=== PATIENT | male | born 1950 | race Caucasian/White ===

== ENCOUNTER → 2018-07-09 | Outpatient (CLI) | payer MEDICARE ==
[2018-07-09 16:14] LABS: Albumin 4.6 g/dL (3.80-4.90); Albumin/Globulin Ratio 2.88 (1.60-3.17); Anion Gap 10.2 mmol/L (4.00-12.00); Calcium 9.5 mg/dL (8.7-10.3); Carbon Dioxide 24.8 mmol/L (21.6-31.8); Globulin 1.6 g/dL (1.6-3.3); LDL Cholesterol,Calculated 74.4 mg/dL (0.0-131.0); Potassium 4.8 mmol/L (3.5-5.5); Total Bilirubin 0.7 mg/dL (0.2-1.2); Total Protein 6.2 g/dL (6.2-8.2); VLDL Calculation 15.6 mg/dL (5.00-40.00)
[2018-07-09 17:29] LABS: Hemoglobin A1C 6.7 % (4.0-6.0)
== END | disposition home or self-care (01) ==
LOC: LABWHC1 08:33
PROVIDERS: ATTEND Internal Medicine Interventional Cardiology
DX: E78.2 Mixed hyperlipidemia (principal); I48.0 Paroxysmal atrial fibrillation; E11.65 Type 2 diabetes mellitus with hyperglycemia
CPT/HCPCS: 36415; 80053; 80061; 82043; 82570; 83036; 84443

== ENCOUNTER → 2021-06-17 | Outpatient (CLI) | payer MEDICARE ==
[2021-06-17 14:28] LABS: ALT 25 U/L (10-49); AST 25 U/L (14-35); African American GFR (CKD) 77.3 (60.0-200.0); Albumin 4.6 g/dL (3.8-4.9); Albumin/Globulin Ratio 1.59 (1.60-3.17); Alkaline Phosphatase 64 U/L (41-126); BUN/Creat Ratio 19.18 Ratio (12.00-20.00); Blood Urea Nitrogen 21.1 mg/dL (9.0-27.0); Chloride 101 mmol/L (96-109); Chol/HDL Ratio 4.36 Ratio; Globulin 2.9 g/dL (1.6-3.3); Glucose 115 mg/dL (70-110); LDL Cholesterol,Calculated 82.3 mg/dL (0.0-131.0); Non-African American GFR(CKD) 66.7 (60.0-200.0); Potassium 4.2 mmol/L (3.5-5.5); Sodium 135 mmol/L (135-145); Total Protein 7.5 g/dL (6.2-8.2); VLDL Calculation 19.44 mg/dL (5.00-40.00)
[2021-06-17 21:15] LABS: Microalbumin Creatinine Ratio <30 mg/g Creat (0-30); Urine Creatinine 82.8 mg/dL (39.0-259.0)
== END | disposition home or self-care (01) ==
LOC: LABWHC1 08:21
PROVIDERS: ATTEND Internal Medicine Endocrinology, Diabetes & Metabolism
DX: E11.65 Type 2 diabetes mellitus with hyperglycemia (principal)
CPT/HCPCS: 36415; 80053; 80061; 82043; 82570; 83036; 84443

== ENCOUNTER → 2022-03-01 | Outpatient (CLI) | payer MEDICARE ==
[2022-03-01 15:58] LABS: ALT 19 U/L (10-49); AST 18 U/L (14-35); African American GFR (CKD) 88.6 (60.0-200.0); Albumin 4.5 g/dL (3.8-4.9); Albumin/Globulin Ratio 1.62 (1.60-3.17); Alkaline Phosphatase 68 U/L (41-126); BUN/Creat Ratio 22.48 Ratio (12.00-20.00); Blood Urea Nitrogen 22.1 mg/dL (9.0-27.0); Calcium 9.3 mg/dL (8.7-10.3); Carbon Dioxide 25.3 mmol/L (20.0-27.5); Chloride 102 mmol/L (96-109); Chol/HDL Ratio 6.84 Ratio; Globulin 2.7 g/dL (1.6-3.3); Glucose 142 mg/dL (70-110); LDL Cholesterol,Calculated 171.6 mg/dL (0.0-131.0); Non-African American GFR(CKD) 76.4 (60.0-200.0); Potassium 4.4 mmol/L (3.5-5.5); Sodium 139 mmol/L (135-145); Total Protein 7.2 g/dL (6.2-8.2)
== END | disposition home or self-care (01) ==
LOC: LABWHC1 08:00
PROVIDERS: ATTEND Internal Medicine Endocrinology, Diabetes & Metabolism
DX: E11.65 Type 2 diabetes mellitus with hyperglycemia (principal)
CPT/HCPCS: 36415; 80053; 80061; 82043; 82570; 83036; 84443

== ENCOUNTER → 2022-08-14 | Outpatient (CLI) | payer MEDICARE ==
[2022-08-14 12:40] VITALS: BP 137/69; PULSE 52; RESP 18; TEMP 97.8
--- NOTE | 2022-08-14 13:30 | P.PAINPG ---
PQRS Measure Charge Sheet Comment: HISTORY OF PRESENT ILLNESS: 72 yr old male as a referral from [facility] presents today w severe and chronic LBP secondary to spinal stenosis, DDD, spondylosis and facet arthropathy without myelopathy for evaluation. Pt states pain level is provoked at 9/10 in intensity, constant, localized in the lower lumbar spine where it meets the tailbone, sore in character w shooting pain towards the BLEs. Pain is provoked by lifting, bending. Pain is alleviated by heat, hot showers, PT 4 weeks in Jun 2022, chiropractic treatments 10 weeks in Mar 2022, daily home stretching regimen, repositioning and rest. PMH: OA, HTN, Hyperlipidemia, GERD, DM II PSH: Denies SH: Negative x 3 FH: Non contributory All: NKDA Meds: See list REVIEW OF ORGAN SYSTEMS: CONSTITUTIONAL: No fevers or chills. No recent weight loss. NEUROLOGICAL: + numbness and tingling along the distal extremities. No seizure disorders or headaches. MUSCULOSKELETAL: + pain PSYCHIATRIC: Denies current depression or suicidal thoughts. Physical Examinations : Constitutional : Cooperative , not in acute distress . Neurologic : Cranial nerve II to XII intact. No focal neurological deficits. Psychiatric : alert & oriented x 3. Matching mood & appropriate affect. Judgment & insight intact. Musculoskeletal : Cervical Spine Motor strength in the deltoid and b iceps: Normal right side. Normal Left side Motor strength biceps and the wrist extensors: Normal right side . Normal left side Motor strength in the triceps muscle: Normal right side. Normal left side Deep tendon reflexes: Normal at the biceps. Normal at Brachioradialis. Normal at triceps Vertebral body tenderness to deep palpation over Cervical facet loading test: positive bilaterally Spurling test: positive bilaterally Neck distraction test: positive bilaterally Taiwo sign: positive bilaterally Lumbar spine Motor strength lower extremities ,thigh and legs 5/5 Right side , 5/5 Left side Deep tendon reflexes : Normal Knee Jerk. Normal Ankle Jerk Vertebral body tenderness over L5 + Villalpando Test positive on L5 Lumbar facet Loading Test: positive Right / positive Left Range of motion of the lumbar spine Flexion 30 degrees, extension 10 degrees Straight Leg Raise test: Left/ Right positive at degree Evie test: positive right / positive left. Severe tenderness over the Sacroiliac joint on the Right / Left sides Gaenslen test: positive bilaterally Seated flexion test: positive bila terally. Sacral spine : Severe tenderness over the Sacroiliac joint: right side / left side Range of motion: Flexion of the lumbar spine <60 degrees Range of motion: Extension of the lumbar spine <20 degrees Gaenslen's Test positive Kahlil's Test positive Evie test: positive right side / left side Thigh Thrust Test Sacral Thrust Test Imaging: MRI noncontrast of the lumbar spine from 06/19/22 reviewed Assessment/ Plan : Lumbar stenosis, lumbar spondylosis Recommendation of L5-S1 #1. May need a series of injections for optimal pain relief. Risks, benefits of procedure discussed and patient verbalized understanding. Admits to aspirin or anti- coagulant use or medical history of diabetes. Protocol for discontinuation/ continuation of medications archana procedure discussed. Minimal anesthesia provided, if clinically indicated, consisting of Versed and Fentanyl. All questions answered. I have spent greater than 30 minutes on patient care today. Dr Warner was available by phone for the evaluation of this patient. The time was used to review the medical records including relevant urine studies and Prescription history (MAPs), review of the available imaging, evaluation and examination of the patient, coordination of care with the medical staff and if applicable referring physicians, as well as creation of the medical record PQRS Narrative: Smoking Status Former smoker Home Medications: Ambulatory Orders Aspirin EC [Ecotrin Low Dose] 81 mg PO DAILY 12/07/13 Atorvastatin [Lipitor] 80 mg PO DAILY 12/07/13 Fenofibrate [Lofibra] 145 mg PO DAILY 12/07/13 Isosorbide Mononitrate [Imdur] 120 mg PO BID 12/07/13 Metoprolol Tartrate [Lopressor] 50 mg PO BID 12/07/13 Omeprazole [PriLOSEC] 40 mg PO BID 12/07/13 Amiodarone [Cordarone] 200 mg PO BID #180 tab 12/08/13 Enalapril Maleate 5 mg PO DIRECTED 01/27/14 Nitroglycerin 0.4 mg SL DIRECTED PRN 01/27/14 Rivaroxaban [Xarelto] 20 mg PO DAILY 01/27/14 metFORMIN HCL [Metformin HCl ER] 750 mg PO BID 01/27/14 Controlled Substance Measures - Controlled Substance Measures Is patient prescribed a controlled substance at discharge?: No
== END ==
LOC: PNWHC3 09:21
PROVIDERS: ATTEND Specialist
DX: M51.36 Other intervertebral disc degeneration, lumbar region (principal); M48.061 Spinal stenosis, lumbar region without neurogenic claudication; Z87.891 Personal history of nicotine dependence; Z79.899 Other long term (current) drug therapy; M19.90 Unspecified osteoarthritis, unspecified site; I10 Essential (primary) hypertension; M47.816 Spondylosis without myelopathy or radiculopathy, lumbar region; E78.5 Hyperlipidemia, unspecified; K21.9 Gastro-esophageal reflux disease without esophagitis; E11.9 Type 2 diabetes mellitus without complications; Z79.84 Long term (current) use of oral hypoglycemic drugs; Z79.82 Long term (current) use of aspirin
CPT/HCPCS: 99211

== ENCOUNTER 2022-09-21 10:41 | Day surgery (SDC) | payer MEDICARE ==
[2022-09-13 10:27] VITALS: BMI 24.4
[~2022-09-21 10:41] MED LIST: LACTATED RINGERS 1,000 ML IV SCH
[2022-09-21 11:03] VITALS: RESP 16; TEMP 97.5
[2022-09-21 11:07] LABS: Glucose,Whole Blood 99 mg/dL (70-110)
[2022-09-21] MEDS ORDERED: IOPAMIDOL M200 10 ML VIAL ONE (11:26)
[2022-09-21] MEDS ORDERED: methylPREDNISolone ACETATE 40 MG/ML 1 ML VIAL ONE (11:26)
--- NOTE | 2022-09-21 11:34 | P.PCN ---
Date of Procedure: 09/21/22 Procedure(s) Performed: PREOPERATIVE DIAGNOSIS: 1- Lumbar Degenerative Disc Diseases 2-Lumbar spondylosis with Facet arthropathy without myelopathy. 3-lumbar spinal stenosis POSTOPERATIVE DIAGNOSIS: 1-lumbar degenerative disc disease. 2-lumbar spondylosis with facet arthropathy without myelopathy. 3-lumbar spinal stenosis. PROCEDURE 1. Lumbar epidural steroid injection under fluoroscopic guidance at the L5-S1 level. (Fluoroscopy imaging was available in radiology department) 2. Lumbar epidurogram. ANESTHESIA: Lidocaine 1% 3 and then only. EBL: Minimal PROCEDURE INDICATION: The patient with low back pain and radiculitis symptoms unresponsive to conservative treatment. Fluoroscopy was used to optimize visualization of the needle placement and to maximize safety. PROCEDURE DESCRIPTION / TECHNIQUE: The patient was seen and identified in the preoperative area. Risks, benefits, complications including but not limited to infections ,bleeding ,allergic reaction to the medications ,nerve damage and not complete pain releife , and alternatives were discussed with the patient. The patient agreed to proceed with the procedure and signed the consent. IV was started, and vital signs were stable. Patient was taken to the OR and time out was completed. The patient was placed in the prone position on procedure table and a pillow was placed under the abdomen to reduce lumbar lordosis. The lumbosacral area was prepped and draped in the usual sterile fashion.ere closely monitored during the procedure. Vital signs was monitered during the entire procedure. Using anterior-posterior fluoroscopy, the L5-S1 interlaminar space was identified and the skin over this site was marked and then infiltrated with 1% lidocaine subcutaneously. Subsequently, a 20-gauge Tuohy epidural needle was inserted and advanced toward the epidural space using the ``Loss of resistance technique and guided by AP and lateral fluoroscopy. The correct needle position in the epidural space was verified with the injection of 2 mL of the water soluble contrast dye Isovue 200 contrast and observing an excellent epidurogram with the epidural spread of the dye, after negative aspiration for blood and CSF and in the absence of paresthesias. Again after negative aspiration, a 6 ml mixture containing 40 mg of Depo-medrol ( Preservetive Free ), and 2 ml of preservative free Normal Saline, and 2 ml of preservative free lidocaine 1% solution was injected and a washout of epidurogram was seen. Needle was withdrawn intact, skin was cleansed, and bandages were applied. COMPLICATIONS: None DISPOSITION / PLANS: The patient was placed in a supine position and transferred to the recovery area in a stable condition for observation. There was no evidence of lower extremity motor or sensory deficit after the procedure. Patient was discharged from the recovery room after meeting discharge criteria. Home discharge instructions were given to the patient by the staff. The patient was reexamined prior to discharge. The patient will schedule a follow up in the clinic in 2-4 weeks. xeralto held for more than 72 hours
[2022-09-21 11:59] VITALS: BP 135/70; PULSE 57
--- NOTE | 2022-09-22 09:36 | FL ---
Intraoperative/procedural fluoroscopic services were provided for lumbar epidural steroid injection. Total fluoroscopy time is 7.2 seconds with a total of 1 submitted image to PACS. Total DAP [id number] mG ym2. Please see the operative note for further details.
== END 2022-09-21 12:12 | disposition home or self-care (01) ==
LOC: ORPAIN 10:41
PROVIDERS: ATTEND Specialist
DX: M51.16 Intervertebral disc disorders with radiculopathy, lumbar region (principal); M47.26 Other spondylosis with radiculopathy, lumbar region; M48.061 Spinal stenosis, lumbar region without neurogenic claudication; I25.10 Atherosclerotic heart disease of native coronary artery without angina pectoris; I48.91 Unspecified atrial fibrillation; Z79.01 Long term (current) use of anticoagulants; Z79.82 Long term (current) use of aspirin; Z88.8 Allergy status to other drugs, medicaments and biological substances
CPT/HCPCS: 62323; J1030; Q9966

== ENCOUNTER → 2022-10-18 | Outpatient (CLI) | payer MEDICARE ==
[2022-10-18 10:09] VITALS: BP 101/65; PULSE 66; RESP 15; TEMP 97.9
--- NOTE | 2022-10-18 13:39 | P.PAINPG ---
PQRS Measure Charge Sheet Comment: 72 yr old male presents today w severe and chronic LBP secondary to spinal stenosis, DDD, spondylosis and facet arthropathy without myelopathy for evaluation s/p JUDSON L5-S1. Pt states he experienced 50% pain relief x 4 days s/p procedure. Pt states pain level is provoked at 8/10 in intensity, constant, localized in the lower lumbar spine where it meets the tailbone, tight, sharp in character w shooting pain towards the buttocks and BLEs. Pain is provoked by lifting, bending or walking/ standing for excessive periods. Pain is alleviated by medications, heat, hot showers, PT 4 weeks in Jun 2022, chiropractic treatments 10 weeks in Mar 2022, daily home stretching regimen, repositioning and rest. Oswestry axial pain score of 15. Interventional procedures include JUDSON L5-S1 x1 Medications include [place], Tyl, Robaxin REVIEW OF ORGAN SYSTEMS: CONSTITUTIONAL: No fevers or chills. No recent weight loss. NEUROLOGICAL: + numbness and tingling along the distal extremities. No seizure disorders or headaches. MUSCULOSKELETAL: + pain PSYCHIATRIC: Denies current depression or suicidal thoughts. Physical Examinations : Constitutional : Cooperative , not in acute distress . Neurologic : Cranial nerve II to XII intact. No focal ne urological deficits. Psychiatric : alert & oriented x 3. Matching mood & appropriate affect. Judgment & insight intact. Musculoskeletal : Cervical Spine Motor strength in the deltoid and biceps: Normal right side. Normal Left side Motor strength biceps and the wrist extensors: Normal right side . Normal left side Motor strength in the triceps muscle: Normal right side. Normal left side Deep tendon reflexes: Normal at the biceps. Normal at Brachioradialis. Normal at triceps Vertebral body tenderness to deep pa lpation over Cervical facet loading test: positive bilaterally Spurling test: positive bilaterally Neck distraction test: positive bilaterally Taiwo sign: positive bilaterally Lumbar spine Motor strength lower extremities ,thigh and legs 5/5 Right side , 5/5 Left side Deep tendon reflexes : Normal Knee Jerk. Normal Ankle Jerk Vertebral body tenderness + Villalpando Test positive Lumbar facet Loading Test: positive Right / positive Left over BL L4-L5 L5-S1 Range of motion of the lumbar spine Flexion 30 degrees, extension 10 degrees Straight Leg Raise test: Left/ Right positive at degree Evie test: positive right / positive left. Severe tenderness over the Sacroiliac joint on the Right / Left sides Julio test: positive bilaterally Seated flexion test: positive bilaterally. Sacral spine : Severe tenderness over the Sacroiliac joint: right side / left side Range of motion: Flexion of the lumbar spine <60 degrees Range of motion: Extension of the lumbar spine <20 degrees Gaenslen's Test positive Kahlil's Test positive Evie test: positive right side / left side Thigh Thrust Test Sacral Thrust Test Assessment/ Plan : Lumbar stenosis, lumbar spondylosis Recommendation of BL MBB L4-L5, L5-S1 #1. May need a series of injections, up until RFA, for optimal pain relief. Risks, benefits of procedure discussed and patient verbalized understanding. Admits to aspirin or anti- coagulant use or medical history of diabetes. Protocol for discontinuation/ continuation of medications archana procedure discussed. Minimal anesthesia provided, if clinically indicated, consisting of Versed and Fentanyl. All questions answered. I have spent greater than 30 minutes on patient care today. Dr Warner was available by phone for the evaluation of this patient. The time was used to review the medical records including relevant urine studies and Prescription history (MAPs), review of the available imaging, evaluation and examination of the patient, coordination of care with the medical staff and if applicable referring physicians, as well as creation of the medical record PQRS Narrative: Smoking Status Former smoker Hx Alcohol Use (MH) Yes: RARE Home Medications: Ambulatory Orders Aspirin EC [Ecotrin Low Dose] 81 mg PO DAILY 12/07/13 Isosorbide Mononitrate [Imdur] 120 mg PO BID 12/07/13 Metoprolol Tartrate [Lopressor] 50 mg PO DAILY 12/07/13 Nitroglycerin 0.4 mg SL DIRECTED PRN 01/27/14 Rivaroxaban [Xarelto] 20 mg PO HS 01/27/14 metFORMIN HCL [Metformin HCl ER] 750 mg PO BID 01/27/14 Amiodarone [Cordarone] 200 mg PO QAM 09/13/22 Atorvastatin [Lipitor] 40 mg PO DAILY 09/13/22 Empagliflozin [Jardiance] 25 mg PO DAILY 09/13/22 Losartan [Cozaar] 50 mg PO DAILY 09/13/22 Semaglutide [Ozempic] 0.5 mg SQ SPEAR 09/13/22 Controlled Substance Measures - Controlled Substance Measures Is patient prescribed a controlled substance at discharge?: No
== END ==
LOC: PNWHC3 09:36
PROVIDERS: ATTEND Specialist
DX: M47.817 Spondylosis without myelopathy or radiculopathy, lumbosacral region (principal); M48.061 Spinal stenosis, lumbar region without neurogenic claudication; Z87.891 Personal history of nicotine dependence; Z79.82 Long term (current) use of aspirin; Z88.1 Allergy status to other antibiotic agents
CPT/HCPCS: 99211

== ENCOUNTER → 2022-11-21 | Day surgery (SDC) | payer MEDICARE ==
[2022-11-16 11:18] VITALS: BMI 24.4
[~2022-11-21] MED LIST changes: +LACTATED RINGERS 1,000 ML IV ONE; +MIDAZOLAM 2 MG/2 ML VIAL ONE; +ROPIVACAINE 5MG/ML 20ML VIAL ONE; +fentaNYL (PF) 50 MCG/ML 2 ML AMP ONE; +methylPREDNISolone ACETATE 40 MG/ML 1 ML VIAL ONE
[2022-11-21 07:25] VITALS: TEMP 97.1
[2022-11-21 07:35] LABS: Glucose,Whole Blood 116 mg/dL (70-110)
--- NOTE | 2022-11-21 07:56 | P.PCN ---
Date of Procedure: 11/21/22 Procedure(s) Performed: PREOPERATIVE DIAGNOSIS : 1- Lumbar spondylosis with Facet Arthropathy without myelopathy . 2- Lumber degenerative disc disease POSTOPERATIVE DIAGNOSIS: 1- Lumbar spondylosis with Facet Arthropathy without myelopathy . 2- Lumber degenerative disc disease PROCEDURE: Diagnostic bilateral L3 , L4 , and L5 medial branch block under fluoroscopy guidance(fluoroscopy images available in the radiology Department ) ( To target the facet joint between Bilateral L4-5 , and L5-S1 )# 1st ANESTHESIA:, moderate sedation with intravenous Versed 1 mg and Fentanyl 50 mcg. (Sedation starts 07:40, ended at 07:51 ) EBL: Minimal COMPLICATION: None PROCEDURE INDICATION: Chronic low back pain secondary to Facet arthropathy unresponsive to conservative treatment. PROCEDURE DESCRIPTION: the patient was seen and identified in the preop holding area , risks and benefits and possible complications of the procedure and alternative were discussed with the patient, and the patient agreed to proceed with the procedure and signed the consent and vital signs monitored during the procedure and fluoroscopy was used to maximize the benefit and accuracy of the needle placement, and sedation was given to decrease patient anxiety, patient was taken to the procedure room and placed in prone position vital signs monitored in the back prepped with chlorhexidine X3 then under strict sterile technique using a right oblique fluoroscopy ,the junction of the transverse process and the superior articulating process of the right L3 , L4 , and L5 vertebra which corresponding to the fluoroscopy image of the eye of the Lalo dog on the block side for the medial branches and subsequently , after local infiltration of skin and subcu tissuies with Ropivacaine 0.5 % , one mL at each level ,then 22-gauge Quincke-type needles , 3 needle was used , each one of them placed at the junction of the base of the transverse process and the superior articular process at the appropriate level, and the needle was advanced until the periosteum contacted, needle placement confirmed with AP oblique and lateral view and after appropriate needle placement confirmed, and after negative aspiration for heme and CSF and there was no paresthesia 1-1/2 mL of Ropivacaine 0.5% mixed with 20 mg Depo-Medrol , then half mL injected at each level after negative aspiration the needle subsequently removed and the same p rocedure repeated for the left side at left side at L3 , L4 and L5 levels. At the end of the procedure and the needles removed and a bandage applied after the skin was cleaned the cleaning solution patient taken to recovery room in stable condition and monitors in the recovery room for 20-30 minutes and discharged home in stable condition after discharge criteria met and patient will follow up with the pain clinic in 2-4 weeks
[2022-11-21 08:17] VITALS: BP 137/66; PULSE 51; RESP 14
[2022-11-21 08:26] LABS: Glucose,Whole Blood 109 mg/dL (70-110)
--- NOTE | 2022-11-21 09:30 | FL ---
Intraoperative/procedural fluoroscopic services were provided. Total fluoroscopy time is 14.6 seconds with a total of 6 submitted images to PACS. Please see the operative/procedural note for further det ails. DAP: [id number] mGym2
== END ==
LOC: ORPAIN 06:46
PROVIDERS: ATTEND Specialist
DX: M51.36 Other intervertebral disc degeneration, lumbar region (principal); M47.816 Spondylosis without myelopathy or radiculopathy, lumbar region; G89.29 Other chronic pain; Z79.01 Long term (current) use of anticoagulants
CPT/HCPCS: 64493; 64494 ×2; J2250; J1030; J3010; J2795

== ENCOUNTER → 2022-12-14 | Outpatient (CLI) | payer MEDICARE ==
[2022-12-14 11:08] VITALS: BP 132/71; PULSE 89; RESP 16; TEMP 98
--- NOTE | 2022-12-14 12:33 | P.PAINPG ---
PQRS Measure Charge Sheet Comment: 72 yr old male presents today w severe and chronic LBP secondary to spinal stenosis, DDD, spondylosis and facet arthropathy without myelopathy for evaluation s/p BL MBB L3-L5 #1. Pt states he experienced 90 % pain relief x 6 hrs s/p procedure. Pt states pain level is provoked at 8/10 in intensity, constant, localized in the lower lumbar spine where it meets the tailbone, tight, sharp in character w shooting pain towards the buttocks and BLEs. Pain is provoked by lifting, bending or walking/ standing for excessive periods. Pain is alleviated by medications, heat, hot showers, PT 4 weeks in Jun 2022, chiropractic treatments 10 weeks in Mar 2022, daily home stretching regimen, repositioning and rest. Oswestry axial pain score of 15. Interventional procedures include JUDSON L5-S1 x1, BL MBB L3-L5 x1 Medications include [place], Tyl, Robaxin REVIEW OF ORGAN SYSTEMS: CONSTITUTIONAL: No fevers or chills. No recent weight loss. NEUROLOGICAL: + numbness and tingling along the distal extremities. No seizure disorders or headaches. MUSCULOSKELETAL: + pain PSYCHIATRIC: Denies current depression or suicidal thoughts. Physical Examinations : Constitutional : Cooperative , not in acute distress . Neurologic : Cranial nerve II to XII intact. No focal neurological deficits. Psychiatric : alert & oriented x 3. Matching mood & appropriate affect. Judgment & insight intact. Musculoskeletal : Cervical Spine Motor strength in the deltoid and biceps: Normal right side. Normal Left side Motor strength biceps and the wrist extensors: Normal right side . Normal left side Motor strength in the triceps muscle: Normal right side. Normal left side Deep tendon reflexes: Normal at the biceps. Normal at Brachioradialis. Normal at triceps Vertebral body tenderness to deep palpation over Cervical facet loading test: positive bilaterally Spurling test: positive bilaterally Neck distraction test: positive bilaterally Taiwo sign: positive bilaterally Lumbar spine Motor strength lower extremities ,thigh and legs 5/5 Right side , 5/5 Left side Deep tendon reflexes : Normal Knee Jerk. Normal Ankle Jerk Vertebral body tenderness + Villalpando Test positive Lumbar facet Loading Test: positive Right / positive Left over BL L4-L5 L5-S1 Range of motion of the lumbar spine Flexion 30 degrees, extension 10 degrees Straight Leg Raise test: Left/ Right positive at degree Evie test: positive right / positive left. Severe tenderness over the Sacroiliac joint on the Right / Left sides Gaenslen test: positive bilaterally Seated flexion test: positive bilaterally. Sacral spine : Severe tenderness over the Sacroiliac joint: right side / left side Range of motion: Flexion of the lumbar spine <60 degrees Range of motion: Extension of the lumbar spine <20 degrees Gaenslen's Test positive Kahlil's Test positive Evie test: positive right side / left side Thigh Thrust Test Sacral Thrust Test Assessment/ Plan : Lumbar stenosis, lumbar spondylosis Recommendation of BL MBB L3-L5 #2. May need a series of injections, up until RFA, for optimal pain relief. Risks, benefits of procedure discussed and patient verbalized understanding. Admits to aspirin or anti- coagulant use or medical history of diabetes. Protocol for discontinuation/ continuation of medications archana procedure discussed. Minimal anesthesia provided, if clinically indicated, consisting of Versed and Fentanyl. Narcotic/ Opiate agreement signed today 12/14/22. [place] 7.5/325mg #45 w 1 RF. Use, side effects, adverse reactions and safe storage discussed. All questions answered. I have spent greater than 30 minutes on patient care today. Dr Warner was available by phone for the evaluation of this patient. The time was used to review the medical records including relevant urine studies and Prescription history (MAPs), review of the available imaging, evaluation and examination of the patient, coordination of care with the medical staff and if applicable referring physicians, as well as creation of the medical record PQRS Narrative: Smoking Status Former smoker Hx Alcohol Use (MH) Yes: RARE Home Medications: Ambulatory Orders Aspirin EC [Ecotrin Low Dose] 81 mg PO DAILY 12/07/13 Isosorbide Mononitrate [Imdur] 120 mg PO BID 12/07/13 Metoprolol Tartrate [Lopressor] 50 mg PO DAILY 12/07/13 Nitroglycerin 0.4 mg SL DIRECTED PRN 01/27/14 Rivaroxaban [Xarelto] 20 mg PO HS 01/27/14 metFORMIN HCL [Metformin HCl ER] 750 mg PO BID 01/27/14 Amiodarone [Cordarone] 200 mg PO QAM 09/13/22 Atorvastatin [Lipitor] 40 mg PO DAILY 09/13/22 Empagliflozin [Jardiance] 25 mg PO DAILY 09/13/22 Losartan [Cozaar] 50 mg PO DAILY 09/13/22 Semaglutide [Ozempic] 0.5 mg SQ SPEAR 09/13/22 HYDROcodone/APAP 7.5-325MG [[place] 7.5-325] 1 tab PO BID PRN 30 Days #45 tab 12/14/22 HYDROcodone/APAP 7.5-325MG [[place] 7.5-325] 1 tab PO Q12H PRN 30 Days #45 tab 12/14/22 methocarbamoL [Robaxin] 500 mg PO TID PRN 30 Days #90 tab 12/14/22 Controlled Substance Measures - Controlled Substance Measures Is patient prescribed a controlled substance at discharge?: Yes When asked, does pt state using other controlled substances?: No If prescribed controlled substance>3 days was MAPS reviewed?: Yes If Rx opioid, was Start Talking consent form obtained?: Yes Was information provided regarding opioid addiction?: Yes
== END ==
LOC: PNWHC3 10:01
PROVIDERS: ATTEND Specialist
DX: M47.817 Spondylosis without myelopathy or radiculopathy, lumbosacral region (principal); M48.061 Spinal stenosis, lumbar region without neurogenic claudication; Z88.8 Allergy status to other drugs, medicaments and biological substances; Z79.82 Long term (current) use of aspirin; Z87.891 Personal history of nicotine dependence
CPT/HCPCS: 99211

== ENCOUNTER 2023-01-04 07:33 | Day surgery (SDC) | payer MEDICARE ==
[~2023-01-04 07:33] MED LIST changes: -LACTATED RINGERS 1,000 ML IV ONE; -MIDAZOLAM 2 MG/2 ML VIAL ONE; -ROPIVACAINE 5MG/ML 20ML VIAL ONE; -fentaNYL (PF) 50 MCG/ML 2 ML AMP ONE; -methylPREDNISolone ACETATE 40 MG/ML 1 ML VIAL ONE
[2023-01-04 07:59] LABS: Glucose,Whole Blood 129 mg/dL (70-110)
[2023-01-04 08:01] VITALS: TEMP 96.8
[2023-01-04] MEDS ORDERED: ROPIVACAINE 5MG/ML 20ML VIAL ONE (08:47)
[2023-01-04] MEDS ORDERED: fentaNYL (PF) 50 MCG/ML 2 ML AMP ONE (08:47)
[2023-01-04] MEDS ORDERED: MIDAZOLAM 2 MG/2 ML VIAL ONE (08:47)
[2023-01-04] MEDS ORDERED: methylPREDNISolone ACETATE 40 MG/ML 1 ML VIAL ONE (08:47)
--- NOTE | 2023-01-04 09:01 | P.PCN ---
Date of Procedure: 01/04/23 Procedure(s) Performed: PREOPERATIVE DIAGNOSIS : 1- Lumbar spondylosis with Facet Arthropathy without myelopathy . 2- Lumber degenerative disc disease POSTOPERATIVE DIAGNOSIS: 1- Lumbar spondylosis with Facet Arthropathy without myelopathy . 2- Lumber degenerative disc disease PROCEDURE: Diagnostic bilateral L3 , L4 , and L5 medial branch block under fluoroscopy guidance(fluoroscopy images available in the radiology Department ) ( To target the facet joint between Bilateral L4-5 , and L5-S1 )# 2nd ANESTHESIA:, moderate sedation with intravenous Versed 1 mg and Fentanyl 50 mcg. (Sedation starts 08:47, ended at 08:59 ) EBL: Minimal COMPLICATION: None PROCEDURE INDICATION: Chronic low back pain secondary to Facet arthropathy unresponsive to conservative treatment. PROCEDURE DESCRIPTION: the patient was seen and identified in the preop holding area , risks and benefits and possible complications of the procedure and alternative were discussed with the patient, and the patient agreed to proceed with the procedure and signed the consent and vital signs monitored during the procedure and fluoroscopy was used to maximize the benefit and accuracy of the needle placement, and sedation was given to decrease patient anxiety, patient was taken to the procedure room and placed in prone position vital signs monitored in the back prepped with chlorhexidine X3 then under strict sterile technique using a right oblique fluoroscopy ,the junction of the transverse process and the superior articulating process of the right L3 , L4 , and L5 vertebra which corresponding to the fluoroscopy image of the eye of the Lalo dog on the block side for the medial branches and subsequently , after local infiltration of skin and subcu tissuies with Ropivacaine 0.5 % , one mL at each level ,then 22-gauge Quincke-type needles , 3 needle was used , each one of them placed at the junction of the base of the transverse process and the superior articular process at the appropriate level, and the needle was advanced until the periosteum contacted, needle placement confirmed with AP oblique and lateral view and after appropriate needle placement confirmed, and after negative aspiration for heme and CSF and there was no paresthesia 1-1/2 mL of Ropivacaine 0.5% mixed with 20 mg Depo-Medrol , then half mL injected at each level after negative aspiration the needle subsequently removed and the same procedure repeated for the left side at left side at L3 , L4 and L5 levels. At the end of the procedure and the needles removed and a bandage applied after the skin was cleaned the cleaning solution patient taken to recovery room in stable condition and monitors in the recovery room for 20-30 minutes and discharged home in stable condition after discharge criteria met and patient will follow up with the pain clinic in 2-4 weeks
[2023-01-04] MEDS ORDERED: LACTATED RINGERS 1,000 ML IV ONE (09:04)
--- NOTE | 2023-01-04 09:23 | FL ---
EXAMINATION TYPE: FL guided pain mgmt statistic DATE OF EXAM: 01/04/2023 HISTORY: Fluoroscopy time Total dose area product (DAP) in uGy*m?, mGy*cm? (or similar): 0.37332 IMPRESSION: 1. Fluoroscopy time.
[2023-01-04 09:34] VITALS: BP 163/81; PULSE 45; RESP 16
== END 2023-01-04 09:46 | disposition home or self-care (01) ==
LOC: ORPAIN 07:33
PROVIDERS: ATTEND Specialist
DX: M47.816 Spondylosis without myelopathy or radiculopathy, lumbar region (principal); G89.29 Other chronic pain; M51.36 Other intervertebral disc degeneration, lumbar region; E11.9 Type 2 diabetes mellitus without complications; Z79.01 Long term (current) use of anticoagulants; Z88.1 Allergy status to other antibiotic agents; Z79.82 Long term (current) use of aspirin
CPT/HCPCS: 64493; 64494 ×2; 99152; J2250; J1030; J3010; J2795

== ENCOUNTER → 2023-01-22 | Outpatient (CLI) | payer MEDICARE ==
--- NOTE | 2023-01-22 10:14 | P.PN ---
Subjective Progress Note Date: 01/22/23 72 yr old male presents today w severe and chronic LBP secondary to spinal stenosis, DDD, spondylosis and facet arthropathy without myelopathy for evaluation s/p BL MBB L3-L5 #2 . Pt states he experienced 90 % pain relief x 1-2 days s/p procedure. Pt states pain level is provoked at 8/10 in intensity, constant, localized in the lower lumbar spine where it meets the tailbone, tight, sharp in character w shooting pain towards the buttocks and BLEs. Pain is provoked by lifting, bending or walking/ standing for excessive periods. Pain is alleviated by medications, heat, hot showers, PT 4 weeks in Jun 2022, chiropractic treatments 10 weeks in Mar 2022, daily home stretching regimen, repositioning and rest. Oswestry axial pain score of 15. Interventional procedures include JUDSON L5-S1 x1, BL MBB L3-L5 x2 Medications include [place], Tyl, Robaxin REVIEW OF ORGAN SYSTEMS: CONSTITUTIONAL: No fevers or chills. No recent weight loss. NEUROLOGICAL: + numbness and tingling along the distal extremities. No seizure disorders or headaches. MUSCULOSKELETAL: + pain PSYCHIATRIC: Denies current depression or suicidal thoughts. Physical Examinations : Constitutional : Cooperative , not in acute distress . Neurologic : Cranial nerve II to XII intact. No focal neurological deficits. Psychiatric : alert & oriented x 3. Matching mood & appropriate affect. Judgment & insight intact. Musculoskeletal : Cervical Spine Motor strength in the deltoid and biceps: Normal right side. Normal Left side Motor strength biceps and the wrist extensors: Normal right side . Normal left side Motor strength in the triceps muscle: Normal right side. Normal left side Deep tendon reflexes: Normal at the biceps. Normal at Brachioradialis. Normal at triceps Vertebral body tenderness to deep palpation over Cervical facet loading test: positive bilaterally Spurling test: positive bilaterally Neck distraction test: positive bilaterally Taiwo sign: positive bilaterally Lumbar spine Motor strength lower extremities ,thigh and legs 5/5 Right side , 5/5 Left side Deep tendon reflexes : Normal Knee Jerk. Normal Ankle Jerk Vertebral body tenderness + Villalpando Test positive Lumbar facet Loading Test: positive Right / positive Left over BL L4-L5 L5-S1 Range of motion of the lumbar spine Flexion 30 degrees, extension 10 degrees Straight Leg Raise test: Left/ Right positive at degree Evie test: positive right / positive left. Severe tenderness over the Sacroiliac joint on the Right / Left sides Gaenslen test: positive bilaterally Seated flexion test: positive bilaterally. Sacral spine : Severe tenderness over the Sacroiliac joint: right side / left side Range of motion: Flexion of the lumbar spine <60 degrees Range of motion: Extension of the lumbar spine <20 degrees Gaenslen's Test positive Kahlil's Test positive Evie test: positive right side / left side Thigh Thrust Test Sacral Thrust Test Assessment/ Plan : Lumbar stenosis, lumbar spondylosis Recommendation of RFA bilateral medial branch lumbar area at L4 5 and L5-S1. Risks, benefits of procedure discussed and patient verbalized understanding. Admits to aspirin or anti- coagulant use or medical history of diabetes. Protocol for discontinuation/ continuation of medications archana procedure discussed. Minimal anesthesia provided, if clinically indicated, consisting of Versed and Fentanyl. Narcotic/ Opiate agreement signed 12/14/22. [place] 7.5/325mg. Use, side effects, adverse reactions and safe storage discussed. All questions answered. Patient has to hold Xarelto for 3 days before the procedure and aspirin for 1 week before the procedure PQRS Narrative: Smoking Status Former smoker Hx Alcohol Use (MH) Yes: RARE Home Medications: Ambulatory Orders Aspirin EC [Ecotrin Low Dose] 81 mg PO DAILY 12/07/13 Isosorbide Mononitrate [Imdur] 120 mg PO BID 12/07/13 Metoprolol Tartrate [Lopressor] 50 mg PO DAILY 12/07/13 Nitroglycerin 0.4 mg SL DIRECTED PRN 01/27/14 Rivaroxaban [Xarelto] 20 mg PO HS 01/27/14 metFORMIN HCL [Metformin HCl ER] 750 mg PO BID 01/27/14 Amiodarone [Cordarone] 200 mg PO QAM 09/13/22 Atorvastatin [Lipitor] 40 mg PO DAILY 09/13/22 Empagliflozin [Jardiance] 25 mg PO DAILY 09/13/22 Losartan [Cozaar] 50 mg PO DAILY 09/13/22 Semaglutide [Ozempic] 0.5 mg SQ SPEAR 09/13/22 HYDROcodone/APAP 7.5-325MG [[place] 7.5-325] 1 tab PO BID PRN 30 Days #45 tab 12/14/22 HYDROcodone/APAP 7.5-325MG [[place] 7.5-325] 1 tab PO Q12H PRN 30 Days #45 tab 12/14/22 methocarbamoL [Robaxin] 500 mg PO TID PRN 30 Days #90 tab 12/14/22 Controlled Substance Measures - Controlled Substance Measures Is patient prescribed a controlled substance at discharge?: Yes (prescription for opioid. Given in the previous visit ) When asked, does pt state using other controlled substances?: No If prescribed controlled substance>3 days was MAPS reviewed?: Yes If Rx opioid, was Start Talking consent form obtained?: Yes Was information provided regarding opioid addiction?: Yes
[2023-01-22 10:37] VITALS: BP 123/70; PULSE 50; RESP 15; TEMP 98.5
== END ==
LOC: PNWHC3 09:43
PROVIDERS: ATTEND Specialist
DX: M47.817 Spondylosis without myelopathy or radiculopathy, lumbosacral region (principal); M48.061 Spinal stenosis, lumbar region without neurogenic claudication; E11.9 Type 2 diabetes mellitus without complications; Z79.84 Long term (current) use of oral hypoglycemic drugs; Z87.891 Personal history of nicotine dependence; Z79.82 Long term (current) use of aspirin; Z88.8 Allergy status to other drugs, medicaments and biological substances
CPT/HCPCS: 99211

== ENCOUNTER 2023-02-23 06:05 | Day surgery (SDC) | payer MEDICARE ==
[2023-02-23] MEDS ORDERED: LACTATED RINGERS 1,000 ML IV ONE (06:24)
[2023-02-23 06:31] LABS: Glucose,Whole Blood 142 mg/dL (70-110)
[2023-02-23 06:42] VITALS: PULSE 48; RESP 18; TEMP 98
[2023-02-23] MEDS ORDERED: MIDAZOLAM 2 MG/2 ML VIAL ONE (06:58)
[2023-02-23] MEDS ORDERED: methylPREDNISolone ACETATE 40 MG/ML 1 ML VIAL ONE (06:58)
[2023-02-23] MEDS ORDERED: fentaNYL (PF) 50 MCG/ML 2 ML AMP ONE (06:58)
[2023-02-23] MEDS ORDERED: ROPIVACAINE 5MG/ML 20ML VIAL ONE (06:58)
[2023-02-23] MEDS ORDERED: LACTATED RINGERS 1,000 ML IV SCH (07:01)
--- NOTE | 2023-02-23 07:25 | P.PCN ---
Date of Procedure: 02/23/23 Procedure(s) Performed: PREOPERATIVE DIAGNOSIS: 1-Lumbar Spondylosis with Facet Arthropathy without myelopathy. 2- Lumber degenerative disc disease. POSTOPERATIVE DIAGNOSIS: 1- Lumbar Spondylosis with Facet Arthropathy without myelopathy. 2- Lumber degenerative disc disease. PROCEDURES : Bilateral Radiofrequency thermocoagulation, L3 , L4 , and L5 medial branch, with fluoroscopic guidance (fluoroscopy images available in the radiology department) ( to denervate the facet joint at bilateral L4-5 ,and L5-S1 levels ). ANESTHESIA: Monitored anesthesia care as per anesthesia department . EBL: Minimal PROCEDURE INDICATION: The patient with low back pain secondary to lumbar facet arthropathy who had more than 80% relief of her pain with previous diagnostic lumbar medial branch block with bupivacaine. PROCEDURE DESCRIPTION / TECHNIQUE: The patient was seen and identified in the preoperative area. Risks, benefits, complications, including but not limited to risk of infection ,bleeding , allergic reactions to the medications and no complete pain releife , and alternatives were discussed with the patient, the patient agreed to proceed with the procedure and signed the consent. IV was started. Vital signs remained stable throughout the procedure. Patient was taken to the OR and time out was completed. The patient was placed in the prone position on the procedure table. The lumber area was prepped and draped in the usual sterile fashion. . Vital signs were closely monitored during the procedure .IV sedation was used during the procedure to decrease patients anxiety. Using AP and then oblique fluoroscopy, the ``eye of the Lalo dog cor responding to the connection between the superior and transverse articular processes of right L3, L4, and L5 were identified, marked, and localized with 1% lidocaine. Subsequently, a 18 [id number] radiofrequency cannula with a 10- mm active tip was advanced guided by fluoroscopy to each of the``eyes of the Lalo dog at right L3, L4, and L5. Each site then underwent sensory testing at 50 Hz and 0 to 1 volt and motor testing at 2.5 Hz and 0 to 3 volt with local stimulation, but no radicular symptoms down the legs. Thereafter each sites underwent radiofrequency thermocoagulation at 80 degrees celsius for 90 seconds after injecting 0.5 ml of PF Ropivacaine 1ml, then after the thermocoagulation done , 1 ml of the block solution containing Depo-Medrol 20 mg and 3 ml of Ropivacaine 0.5% was injected at the right L3 , L4 , and L5 , levels after negative aspiration of CSF and blood and with no paresthesias. Cannulas were retracted while injecting lidocaine 1% until the needle is out. The same procedure was repeated at the level of Left L3, L4, and L5 levels. At the end of the procedure, the skin was cleansed and bandages were applied. COMPLICATIONS: No acute complications. DISPOSITION / PLANS: The patient was placed in a supine position and transferred to the recovery area in a stable condition for observation and was discharged from the recovery room after meeting discharge criteria. Home discharge instructions given to the patient by the staff. The patient was reexamined prior to discharge. The patient will schedule a follow up in the clinic in 2-4 weeks. Patient held Xeralto for more than 3 days
[2023-02-23] MEDS ORDERED: IV FLUID CONTINUATION 700 ML IV ONE (07:27)
[2023-02-23 08:03] VITALS: BP 119/62
--- NOTE | 2023-02-23 08:37 | FL ---
Intraoperative/procedural fluoroscopic services were provided. Total fluoroscopy time is 0.0 seconds with a total of 6 submitted images to PACS. Please see the operative/procedural note for further deta ils. DAP: [id number] mGym2
== END 2023-02-23 08:07 | disposition home or self-care (01) ==
LOC: ORPAIN 06:05
PROVIDERS: ATTEND Pain Medicine Interventional Pain Medicine
DX: M51.36 Other intervertebral disc degeneration, lumbar region (principal); M47.816 Spondylosis without myelopathy or radiculopathy, lumbar region; I25.2 Old myocardial infarction; E11.9 Type 2 diabetes mellitus without complications; Z79.84 Long term (current) use of oral hypoglycemic drugs; Z79.01 Long term (current) use of anticoagulants; Z79.899 Other long term (current) drug therapy; Z98.890 Other specified postprocedural states
CPT/HCPCS: 64635; 64636 ×2; J2250; J1030; J3010; J2795

== ENCOUNTER → 2023-04-02 | Outpatient (CLI) | payer MEDICARE ==
[2023-04-02 10:20] VITALS: BP 142/72; PULSE 69; RESP 15; TEMP 98.5
--- NOTE | 2023-04-02 13:57 | P.PAINPG ---
PQRS Measure Charge Sheet Comment: A 72 yr old male presents today w severe and chronic LBP x 3 yrs secondary to spinal stenosis, DDD, spondylosis and facet arthropathy without myelopathy for evaluation s/p BL RFA L3-L5 . Pt states he experienced 70 % pain relief s/p procedure. Pt states pain level is provoked at 2/10 in intensity, constant, localized in the lower lumbar spine where it meets the tailbone, predominantly axial, tight/ sharp in character w occasinal shooting pain towards the R buttocks and RLE. Pain is provoked by lifting, bending or walking/ standing for excessive periods. Pain is alleviated by medications, heat, hot showers, PT 4 weeks in Jun 2022, chiropractic treatments 10 weeks in Mar 2022, daily home stretching regimen, repositioning and rest. Oswestry axial pain score of 11. Interventional procedures include JUDSON L5-S1 x1, BL RFA L3-L5 Medications include [place], Tyl, Robaxin REVIEW OF ORGAN SYSTEMS: CONSTITUTIONAL: No fevers or chills. No recent weight loss. NEUROLOGICAL: + numbness and tingling along the distal extremities. No seizure disorders or headaches. MUSCULOSKELETAL: + pain PSYCHIATRIC: Denies current depression or suicidal thoughts. Physical Examinations : Constitutional : Cooperative , not in acute distress . Neurologic : Cranial nerve II to XII intact. No focal neurological deficits. Psychiatric : alert & oriented x 3. Matching mood & appropriate affect. Judgment & insight intact. Musculoskeletal : Cervical Spine Motor strength in the deltoid and biceps: Normal right side. Normal Left side Motor strength biceps and the wrist extensors: Normal right side . Normal left side Motor strength in the triceps muscle: Normal right side. Normal left side Deep tendon reflexes: Normal at the biceps. Normal at Brachioradialis. Normal at triceps Vertebral body tenderness to deep palpation over Cervical facet loading test: positive bilaterally Spurling test: positive bilaterally Neck distraction test: positive bilaterally Taiwo sign: positive bilaterally Lumbar spine Motor strength lower extremities ,thigh and legs 5/5 Right side , 5/5 Left side Deep tendon reflexes : Normal Knee Jerk. Normal Ankle Jerk Vertebral body tenderness + Villalpando Test positive Lumbar facet Loading Test: positive Right / positive Left over BL L4-L5 L5-S1 Range of motion of the lumbar spine Flexion 30 degrees, extension 10 degrees Straight Leg Raise test: Left/ Right positive at degree Evie test: positive right / positive left. Severe tenderness over the Sacroiliac joint on the Right / Left sides Gaenslen test: positive bilaterally Seated flexion test: positive bilaterally. Sacral spine : Severe tenderness over the Sacroiliac joint: right side / left side Range of motion: Flexion of the lumbar spine <60 degrees Range of motion: Extension of the lumbar spine <20 degrees Gaenslen's Test positive Kahlil's Test positive Evie test: positive right side / left side Thigh Thrust Test Sacral Thrust Test Assessment/ Plan : Lumbar stenosis, lumbar spondylosis Recommendation of medication management. Narcotic/ Opiate agreement signed 12/14/22. UDS collected 04/02/23. [place] 7.5/325mg #60 , Robaxin 750mg #60 w 1 RF. Use, side effects, adverse reactions and safe storage discussed. All questions answered. For BL RFA, risks, benefits of procedure discussed and patient verbalized understanding. Admits to aspirin or anti- coagulant use or medical history of diabetes. Protocol for discontinuation/ continuation of medications archana procedure discussed. Minimal anesthesia provided, if clinically indicated, consisting of Versed and Fentanyl. PQRS Narrative: Smoking Status Former smoker Narcotic Agreement Date Signed 12/14/22 Hx Alcohol Use (MH) Yes: RARE Home Medications: Ambulatory Orders Aspirin EC [Ecotrin Low Dose] 81 mg PO DAILY 12/07/13 Isosorbide Mononitrate [Imdur] 120 mg PO BID 12/07/13 Metoprolol Tartrate [Lopressor] 50 mg PO DAILY 12/07/13 Nitroglycerin 0.4 mg SL DIRECTED PRN 01/27/14 Rivaroxaban [Xarelto] 20 mg PO HS 01/27/14 metFORMIN HCL [Metformin HCl ER] 750 mg PO BID 01/27/14 Amiodarone [Cordarone] 100 mg PO QAM 09/13/22 Atorvastatin [Lipitor] 40 mg PO DAILY 09/13/22 Empagliflozin [Jardiance] 25 mg PO DAILY 09/13/22 Losartan [Cozaar] 50 mg PO DAILY 09/13/22 Super Phosphozyme Supplement 1 dose PO DAILY 01/01/23 HYDROcodone/APAP 7.5-325MG [[place] 7.5-325] 1 tab PO BID PRN 30 Days #60 tab 04/02/23 HYDROcodone/APAP 7.5-325MG [[place] 7.5-325] 1 tab PO BID PRN 30 Days #60 tab 04/02/23 methocarbamoL [Robaxin-750] 750 mg PO BID PRN 30 Days #60 tab 04/02/23 Controlled Substance Measures - Controlled Substance Measures Is patient prescribed a controlled substance at discharge?: Yes When asked, does pt state using other controlled substances?: No If prescribed controlled substance>3 days was MAPS reviewed?: Yes
== END ==
LOC: PNWHC3 08:57
PROVIDERS: ATTEND Specialist
DX: M47.817 Spondylosis without myelopathy or radiculopathy, lumbosacral region (principal); M48.07 Spinal stenosis, lumbosacral region; Z51.81 Encounter for therapeutic drug level monitoring; Z79.82 Long term (current) use of aspirin; Z88.8 Allergy status to other drugs, medicaments and biological substances; Z87.891 Personal history of nicotine dependence
CPT/HCPCS: 80307; G0463; 99212

== ENCOUNTER 2023-06-12 05:58 | Day surgery (SDC) | payer MEDICARE ==
[2023-06-12] MEDS ORDERED: LACTATED RINGERS 1,000 ML IV SCH (07:00)
[2023-06-12 07:01] LABS: Glucose,Whole Blood 154 mg/dL (70-110)
[2023-06-12] MEDS ORDERED: methylPREDNISolone ACETATE 40 MG/ML 1 ML VIAL ONE (07:05)
[2023-06-12] MEDS ORDERED: ROPIVACAINE 5MG/ML 20ML VIAL ONE (07:05)
[2023-06-12 07:15] VITALS: RESP 16; TEMP 97
[2023-06-12 07:37] LABS: Glucose,Whole Blood 204 mg/dL (70-110)
--- NOTE | 2023-06-12 07:44 | P.PCN ---
Date of Procedure: 06/12/23 Preoperative Diagnosis: Lumbar paraspinal myofascial pain Postoperative Diagnosis: lumbar paraspinal myofascial pain Procedure(s) Performed: Preoperative diagnoses= 1. Bilateral Lumbar paraspinal myofascial pain Postoperative diagnoses= Bilateral lumbar paraspinal myofascial pain Procedure: Bilateral iliolumbar ligament injection Anesthesia: None Estimated blood loss: None Procedure indication: Patient has a history of chronic low back pain that has failed conservative therapy. Has had bilateral radio pharmacy ablation of L4- L5, L5-S1 medial branches. Provides improvement greater than 50%. However still has persistent low back pain worse with flexion. Procedure description: The patient was seen and identified in the preoperative holding area, risks and benefits and alternative of the procedure and possible complications discussed with the patient, and he agreed with the preceding, patient signed the consent, and vital signs were monitored and were stable throughout the procedure, patient was placed in the prone position on the operative table, vital signs were closely monitored during the procedure. Ultrasound guidance was utilized for needle placement and visualization of medication injection. Lumbar paraspinal muscle chair was identified after palpation for tender points. A solution consisting of 6 mL of 0.5% ropivacaine and 40 mg of Kenalog was utilized. Then a 25-gauge spinal needle was utilized under direct ultrasound guidance. Needle was identified. Once in the muscle, after negative aspiration 3-1/2 ML's injected into the left side side. The same procedure was done on the right side. Then the skin was cleaned and a Band-Aid applied, the patient transported to recovery room in stable condition and he was monitored for 30 minutes before he was discharged home and then patient was reexamined before going home and patient was discharged in stable condition and patient will follow up with the pain clinic in a few weeks
[2023-06-12 07:50] VITALS: BP 130/59; PULSE 47
== END 2023-06-12 07:42 | disposition home or self-care (01) ==
LOC: ORPAIN 05:58
PROVIDERS: ATTEND Anesthesiology
DX: M79.18 Myalgia, other site (principal); G89.29 Other chronic pain
CPT/HCPCS: 20550; J1030; J2795; 20553

== ENCOUNTER → 2023-07-23 | Outpatient (CLI) | payer MEDICARE ==
[2023-07-23 09:16] VITALS: BP 128/68; PULSE 83; RESP 15; TEMP 97.6
--- NOTE | 2023-07-23 14:09 | P.PAINPG ---
PQRS Measure Charge Sheet Comment: A 73 yr old male presents today w severe and chronic LBP x 3 yrs secondary to spinal stenosis, DDD, spondylosis and facet arthropathy without myelopathy for evaluation s/p BL TPIs L2-L1 #1 and medication refills. Pt states he experienced 50% pain relief x 6 wks s/p procedure. Pt states pain level is provoked at 9 /10 in intensity, constant, localized in the lower lumbar spine where it meets the tailbone, predominantly axial, tight in character without occasional shooting pain. Pain is provoked by lifting, bending or walking/ standing for excessive periods. Pain is alleviated by medications, heat, hot showers, PT 4 weeks in Jun 2022, chiropractic treatments 10 weeks in Mar 2022, daily home stretching regimen, repositioning and rest. Oswestry axial pain score of 10. Interventional procedures include JUDSON L5-S1 x1, BL RFA L3-L5, BL TPIs L2-L1 x1 (May 2023) Medications include [place] 7.5/325mg #60, Tyl, Robaxin REVIEW OF ORGAN SYSTEMS: CONSTITUTIONAL: No fevers or chills. No recent weight loss. NEUROLOGICAL: + numbness and tingling along the distal extremities. No seizure disorders or headaches. MUSCULOSKELETAL: + pain PSYCHIATRIC: Denies current depression or suicidal thoughts. Physical Examinations : Constitutional : Cooperative , not in acute distress . Neurologic : Cranial nerve II to XII intact. No focal neurological deficits. Psychiatric : alert & oriented x 3. Matching mood & appropriate affect. Judgment & insight intact. Musculoskeletal : Cervical Spine Motor strength in the deltoid and bicep s: Normal right side. Normal Left side Motor strength biceps and the wrist extensors: Normal right side . Normal left side Motor strength in the triceps muscle: Normal right side. Normal left side Deep tendon reflexes: Normal at the biceps. Normal at Brachioradialis. Normal at triceps Vertebral body tenderness to deep palpation over Cervical facet loading test: positive bilaterally Spurling test: positive bilaterally Neck distraction test: positive bilaterally Taiwo sign: positive bilaterally Lumbar spine Motor strength lower extremities ,thigh and legs 5/5 Right side , 5/5 Left side Deep tendon reflexes : Normal Knee Jerk. Normal Ankle Jerk Vertebral body tenderness over L5 + Villalpando Test positive R L5-S1 Taut bands w twitch response Lumbar facet Loading Test: positive Right / positive Left Range of motion of the lumbar spine Flexion 30 degrees, extension 10 degrees Straight Leg Raise test: Left/ Right positive at degree Evie test: positive right / positive left. Severe tenderness over the Sacroiliac joint on the Right / Left sides Gaenslen test: positive bilaterally Seated flexion test: positive bilaterally. Sacral spine : Severe tenderness over the Sacroiliac joint: right side / left side Range of motion: Flexion of the lumbar spine <60 degrees Range of motion: Extension of the lumbar spine <20 degrees Gaenslen's Test positive Kahlil's Test positive Evie test: positive right side / left side Thigh Thrust Test Sacral Thrust Test Assessment/ Plan : Lumbar stenosis, lumbar spondylosis Recommendation of R paramedian JUDSON L5-S1 #2 and medication management. May need a series of injections for optimal pain relief. Risks, benefits of procedure discussed and pt verbalized understanding. Protocol for discontinuation/ continuation of medications archana procedure discussed. Narcotic/ Opiate agreement signed 12/14/22. UDS fr 04/02/23 reviewed and consistent. [place] 7.5/325mg #60 , Robaxin 750mg #60 w 1 RF. Use, side effects, adverse reactions and safe storage discussed. All questions answered. PQRS Narrative: Smoking Status Former smoker Narcotic Agreement Date Signed 12/14/22 Hx Alcohol Use (MH) Yes: RARE Home Medications: Ambulatory Orders Aspirin EC [Ecotrin Low Dose] 81 mg PO DAILY 12/07/13 Isosorbide Mononitrate [Imdur] 120 mg PO BID 12/07/13 Metoprolol Tartrate [Lopressor] 50 mg PO DAILY 12/07/13 Nitroglycerin 0.4 mg SL DIRECTED PRN 01/27/14 Rivaroxaban [Xarelto] 20 mg PO HS 01/27/14 metFORMIN HCL [Metformin HCl ER] 750 mg PO BID 01/27/14 Amiodarone [Cordarone] 100 mg PO QAM 09/13/22 Atorvastatin [Lipitor] 40 mg PO DAILY 09/13/22 Empagliflozin [Jardiance] 25 mg PO DAILY 09/13/22 Losartan [Cozaar] 50 mg PO DAILY 09/13/22 Super Phosphozyme Supplement 1 dose PO DAILY 01/01/23 HYDROcodone/APAP 7.5-325MG [[place] 7.5-325] 1 tab PO BID PRN 30 Days #60 tab 07/23/23 HYDROcodone/APAP 7.5-325MG [[place] 7.5-325] 1 tab PO BID PRN 30 Days #60 tab 0 07/23/23 methocarbamoL [Robaxin-750] 750 mg PO BID PRN 30 Days #60 tab 07/23/23 Controlled Substance Measures - Controlled Substance Measures Is patient prescribed a controlled substance at discharge?: Yes When asked, does pt state using other controlled substances?: No If prescribed controlled substance>3 days was MAPS reviewed?: Yes
== END ==
LOC: PNWHC3 08:27
PROVIDERS: ATTEND Specialist
DX: M51.37 Other intervertebral disc degeneration, lumbosacral region (principal); M47.817 Spondylosis without myelopathy or radiculopathy, lumbosacral region; M48.061 Spinal stenosis, lumbar region without neurogenic claudication; G89.29 Other chronic pain; Z88.1 Allergy status to other antibiotic agents; Z87.891 Personal history of nicotine dependence
CPT/HCPCS: 99211

== ENCOUNTER 2023-08-16 07:51 | Day surgery (SDC) | payer MEDICARE ==
[2023-08-14 12:32] VITALS: BMI 24.3
[2023-08-16 08:39] LABS: Glucose,Whole Blood 112 mg/dL (70-110)
[2023-08-16] MEDS: LIDOCAINE 1% (10MG/ML) FOR IV START INTRADERMA ONE (08:39)
[2023-08-16] MEDS: LACTATED RINGERS 1,000 ML IV SCH (08:39)
[2023-08-16 09:14] VITALS: TEMP 97.7
[2023-08-16] MEDS ORDERED: IOPAMIDOL M200 10 ML VIAL ONE (09:16)
[2023-08-16] MEDS ORDERED: methylPREDNISolone ACETATE 40 MG/ML 1 ML VIAL ONE (09:16)
--- NOTE | 2023-08-16 09:23 | P.PCN ---
Date of Procedure: 08/16/23 Procedure(s) Performed: PREOPERATIVE DIAGNOSIS: 1- Lumbar Degenerative Disc Diseases 2-Lumbar spondylosis with Facet arthropathy without myelopathy. POSTOPERATIVE DIAGNOSIS: 1-lumbar degenerative disc disease. 2-lumbar spondylosis with facet arthropathy without myelopathy. PROCEDURE 1. Lumbar epidural steroid injection under fluoroscopic guidance at the L5-S1 level. (Fluoroscopy imaging was available in radiology department) 2. Lumbar epidurogram. ANESTHESIA: Lidocaine 1% 3 and then only. EBL: Minimal PROCEDURE INDICATION: The patient with low back pain and radiculitis symptoms unresponsive to conservative treatment. Fluoroscopy was used to optimize visualization of the needle placement and to maximize safety. PROCEDURE DESCRIPTION / TECHNIQUE: The patient was seen and identified in the preoperative area. Risks, benefits, complications including but not limited to infections ,bleeding ,allergic reaction to the medications ,nerve damage and not complete pain releife , and alternatives were discussed with the patient. The patient agreed to proceed with the procedure and signed the consent, and vital signs were stable. Patient was taken to the OR and time out was completed. The patient was placed in the prone position on procedure table and a pillow was placed under the a bdomen to reduce lumbar lordosis. The lumbosacral area was prepped and draped in the usual sterile fashion.ere closely monitored during the procedure. Vital signs was monitered during the entire procedure. Using anterior-posterior fluoroscopy, the L5-S1 interlaminar space was identified and the skin over this site was marked and then infiltrated with 1% lidocaine subcutaneously. Subsequently, a 20-gauge Tuohy epidural needle was inserted and advanced toward the epidural space using the ``Loss of resistance technique and guided by AP and lateral fluoroscopy. The correct needle position in the epidural space was verified with the injection of 2 mL of the water soluble contrast dye Isovue 200 contrast and observing an excellent epidurogram with the epidural spread of the dye, after negative aspiration for blood and CSF and in the absence of paresthesias. Again after negative aspiration, a 5 ml mixture containing 40 mg of Depo-medrol ( Preservetive Free ), and 2 ml of preservative free Normal Saline, and 2 ml of preservative free lidocaine 1% solution was injected and a washout of epidurogram was seen. Needle was withdrawn intact, skin was cleansed, and bandages were applied. COMPLICATIONS: None DISPOSITION / PLANS: The patient was placed in a supine position and transferred to the recovery area in a stable condition for observation. There was no evidence of lower extremity motor or sensory deficit after the procedure. Patient was discharged from the recovery room after meeting discharge criteria. Home discharge instructions were given to the patient by the staff. The patient was reexamined prior to discharge. The patient will schedule a follow up in the clinic in 2-4 weeks. Xarelto last dose more than 72 hours ago.
[2023-08-16] MEDS: LACTATED RINGERS 1,000 ML IV ONE ×2 (09:25→09:33)
--- NOTE | 2023-08-16 09:54 | FL ---
EXAMINATION TYPE: FL guided pain mgmt statistic Intraoperative/procedural fluoroscopic services were provided. Total fluoroscopy time is 1.1 seconds with a total of 1 submitted images to PACS. Please se e the operative/procedural note for further details. DAP: 0.07003 mGym2
[2023-08-16 10:13] VITALS: BP 128/73; PULSE 60; RESP 16
== END 2023-08-16 09:43 | disposition home or self-care (01) ==
LOC: ORPAIN 07:51
PROVIDERS: ATTEND Specialist
DX: M51.16 Intervertebral disc disorders with radiculopathy, lumbar region (principal); M47.26 Other spondylosis with radiculopathy, lumbar region; E11.9 Type 2 diabetes mellitus without complications; I48.91 Unspecified atrial fibrillation; Z79.01 Long term (current) use of anticoagulants; Z79.82 Long term (current) use of aspirin
CPT/HCPCS: 62323; Q9966; J1010

== ENCOUNTER → 2023-09-06 | Outpatient (CLI) | payer MEDICARE ==
[2023-09-06 08:24] VITALS: BP 126/68; PULSE 59; RESP 16; TEMP 98
--- NOTE | 2023-09-06 13:26 | P.PAINPG ---
PQRS Measure Charge Sheet Comment: A 73 yr old male presents today w severe and chronic LBP x 3 yrs secondary to spinal stenosis, DDD, spondylosis and facet arthropathy without myelopathy for evaluation s/p JUDSON L5-S1 #2 and medication refills. Pt states he experienced 80% pain relief x 1 wks s/p procedure. Pt underwent a BL RFA L3-L5 in Feb 23 2023 where he experienced 80% pain relief x 6 mo s/p procedure. Pt states pain level is provoked at 8 /10 in intensity, constant, localized in the lower lumbar spine where it meets the tailbone, predominantly axial, achy in character w occasional shooting pain L & R of midline. Pain is provoked by walking/ standing > 5 mins. Pain is alleviated by medications, heat, hot showers, PT 4 weeks in Jun 2022, chiropractic treatments 10 weeks in Mar 2022, physician guided home stretching regimen every morning since Jun 2022, repositioning and rest. Oswestry axial pain score of 11. Interventional procedures include JUDSON L5-S1 x2, BL RFA L3-L5, BL TPIs L2-L1 x1 (May 2023) Medications include [place] 7.5/325mg #60, Tyl, Robaxin 500mg #60 REVIEW OF ORGAN SYSTEMS: CONSTITUTIONAL: No fevers or chills. No recent weight loss. NEUROLOGICAL: + numbness and tingling along the distal extremities. No seizure disorders or headaches. MUSCULOSKELETAL: + pain PSYCHIATRIC: Denies current depression or suicidal thoughts. Physical Examinations : Constitutional : Cooperative , not in acute distress . Neurologic : Cranial nerve II to XII intact. No focal neurological deficits. Psychiatric : alert & oriented x 3. Matching mood & appropriate affect. Judgment & insight intact. Musculoskeletal : Cervical Spine Motor strength in the deltoid and biceps: Normal right side. Normal Left side Motor strength biceps and the wrist extensors: Normal right side . Normal left side Motor strength in the triceps muscle: Normal right side. Normal left side Deep tendon reflexes: Normal at the biceps. Normal at Brachioradialis. Normal at triceps Vertebral body tenderness to deep palpation over Cervical facet loading test: positive bilaterally Spurling test: positive bilaterally Neck distraction test: positive bilaterally Taiwo sign: positive bilaterally Lumbar spine Motor strength lower extremities ,thigh and legs 5/5 Right side , 5/5 Left side Deep tendon reflexes : Normal Knee Jerk. Normal Ankle Jerk Vertebral body tenderness over L5 + Villalpando Test positive R L5-S1 Taut bands w twitch response Lumbar facet Loading Test: positive Right / positive Left L4-L5, L5-S1 Range of motion of the lumbar spine Flexion 30 degrees, extension 10 degrees Straight Leg Raise test: Left/ Right p ositive at degree Evie test: positive right / positive left. Severe tenderness over the Sacroiliac joint on the Right / Left sides Gaenslen test: positive bilaterally Seated flexion test: positive bilaterally. Sacral spine : Severe tenderness over the Sacroiliac joint: right side / left side Range of motion: Flexion of the lumbar spine <60 degrees Range of motion: Extension of the lumbar spine <20 degrees Gaenslen's Test positive Kahlil's Test positive Evie test: positive right side / left side Thigh Thrust Test Sacral Thrust Test Assessment/ Plan : Lumbar stenosis, lumbar spondylosis Recommendation of repeat BL RFA L3-L5 and medication management. May need a series of injections for optimal pain relief. Risks, benefits of procedure discussed and pt verbalized understanding. Protocol for discontinuation/ continuation of medications archana procedure discussed. Minimal anesthesia including Fentanyl and Versed if clinically indicated. Narcotic/ Opiate agreement signed 12/14/22. UDS fr 04/02/23 reviewed and consistent. Increase [place] 7.5/325mg #90 , Robaxin 750mg #90 w 1 RF. Use, side effects, adverse reactions and safe storage discussed. All questions answered. - Pain Location Bilateral Lower Back Non-Pharmacological Interventions: Chiropractic Treatment, Exercise, Heat, Home Exercise, Ice, Inactivity, Physical Therapy, Position/Reposition, Stretching Pharmacological Interventions: Epidural, PRN Medication, Scheduled Medication, Topical Medication PQRS Narrative: Smoking Status Former smoker Narcotic Agreement Date Signed 12/14/22 Hx Alcohol Use (MH) Yes: RARE Home Medications: Ambulatory Orders Aspirin EC [Ecotrin Low Dose] 81 mg PO DAILY 12/07/13 Isosorbide Mononitrate [Imdur] 120 mg PO BID 12/07/13 Metoprolol Tartrate [Lopressor] 50 mg PO DAILY 12/07/13 Nitroglycerin 0.4 mg SL DIRECTED PRN 01/27/14 Rivaroxaban [Xarelto] 20 mg PO HS 01/27/14 Amiodarone [Cordarone] 100 mg PO QAM 09/13/22 Atorvastatin [Lipitor] 40 mg PO DAILY 09/13/22 Losartan [Cozaar] 50 mg PO DAILY 09/13/22 Super Phosphozyme Supplement 1 dose PO DAILY 01/01/23 Empagliflozin/Metformin HCl [Synjardy 12.5-1,000 mg Tablet] 1 each PO DAILY 08/14/23 Semaglutide [Ozempic] 1 mg SQ TH 08/14/23 HYDROcodone/APAP 7.5-325MG [[place] 7.5-325] 1 tab PO TID PRN 30 Days #90 tab 09/06/23 HYDROcodone/APAP 7.5-325MG [[place] 7.5-325] 1 tab PO TID PRN 30 Days #90 tab 09/06/23 methocarbamoL [Robaxin-750] 750 mg PO TID PRN 30 Days #90 tab 09/06/23 Controlled Substance Measures - Controlled Substance Measures Is patient prescribed a controlled substance at discharge?: Yes When asked, does pt state using other controlled substances?: No If prescribed controlled substance>3 days was MAPS reviewed?: Yes
== END ==
LOC: PNWHC3 08:09
PROVIDERS: ATTEND Specialist
DX: M48.062 Spinal stenosis, lumbar region with neurogenic claudication (principal); M43.16 Spondylolisthesis, lumbar region; M51.37 Other intervertebral disc degeneration, lumbosacral region; M47.817 Spondylosis without myelopathy or radiculopathy, lumbosacral region; Z87.891 Personal history of nicotine dependence; Z88.1 Allergy status to other antibiotic agents
CPT/HCPCS: 99211

== ENCOUNTER 2023-09-21 06:12 | Day surgery (SDC) | payer MEDICARE ==
[2023-09-21 06:35] VITALS: TEMP 97.1
[2023-09-21] MEDS: IV FLUID CONTINUATION 1,000 ML IV ONE ×2 (06:49→07:39)
[2023-09-21] MEDS: LACTATED RINGERS 1,000 ML IV SCH (06:49)
[2023-09-21 06:51] LABS: Glucose,Whole Blood 109 mg/dL (70-110)
[2023-09-21] MEDS ORDERED: fentaNYL (PF) 50 MCG/ML 2 ML AMP ONE (07:06)
[2023-09-21] MEDS ORDERED: ROPIVACAINE 5MG/ML 20ML VIAL ONE (07:06)
[2023-09-21] MEDS ORDERED: MIDAZOLAM 2 MG/2 ML VIAL ONE (07:06)
[2023-09-21] MEDS ORDERED: methylPREDNISolone ACETATE 40 MG/ML 1 ML VIAL ONE (07:06)
--- NOTE | 2023-09-21 07:35 | P.PCN ---
Date of Procedure: 09/21/23 Procedure(s) Performed: PREOPERATIVE DIAGNOSIS: 1-Lumbar Spondylosis with Facet Arthropathy without myelopathy. 2- Lumber degenerative disc disease. POSTOPERATIVE DIAGNOSIS: 1- Lumbar Spondylosis with Facet Arthropathy without myelopathy. 2- Lumber degenerative disc disease. PROCEDURES : Bilateral Radiofrequency thermocoagulation, L3 , L4 , and L5 medial branch, with fluoroscopic guidance (fluoroscopy images available in the radiology department) ( to denervate the facet joint at bilateral L4-5 ,and L5-S1 levels ). ANESTHESIA: Moderate sedations with versed 1 mg ,and fentanyle 50 mcg . ( sedations started at 07: 06 , end at 07 30 ) EBL: Minimal PROCEDURE INDICATION: The patient with low back pain secondary to lumbar facet arthropathy who had more than 80% relief of her pain with previous diagnostic lumbar medial branch block with bupivacaine. PROCEDURE DESCRIPTION / TECHNIQUE: The patient was seen and identified in the preoperative area. Risks, benefits, complications, including but not limited to risk of infection ,bleeding , allergic reactions to the medications and no complete pain releife , and alternatives were discussed with the patient, the patient agreed to proceed with the procedure and signed the consent. IV was started. Vital signs remained stable throughout the procedure. Patient was taken to the OR and time out was completed. The patient was placed in the prone position on the procedure table. The lumber area was prepped and draped in the usual sterile fashion. . Vital signs were closely monitored during the procedure .IV sedation was used during the procedure to decrease patients anxiety. Using AP and then oblique fluoroscopy, the ``eye of the Lalo dog corresponding to the connection between the superior and transverse articular processes of right L3, L4, and L5 were identified, marked, and localized with 1% lidocaine. Subsequently, a 18 guage ( Venom ) 100-mm radiofrequency cannula with a 10-mm active tip was advanced guided by fluoroscopy to each of the``eyes of the Lalo dog at right L3, L4, and L5. Each site then underwent sensory testing at 50 Hz and 0 to 1 volt and motor testing at 2.5 Hz and 0 to 3 volt with local stimulation, but no radicular symptoms down the legs. Thereafter each sites underwent radiofrequency thermocoagulation at 80 degrees celsius for 90 seconds after injecting 0.5 ml of PF Ropivacaine 1ml, then after the thermocoagulation done , 1 ml of the block solution containing Depo-Medrol 20 mg and 3 ml of Ropivacaine 0.5% was injected at the right L3 , L4 , and L5 , levels after negative aspiration of CSF and blood and with no paresthesias. Cannulas were retracted while injecting lidocaine 1% until the needle is out. The same procedure was repeated at the level of Left L3, L4, and L5 levels. At the end of the procedure, the skin was cleansed and bandages were applied. COMPLICATIONS: No acute complications. DISPOSITION / PLANS: The patient was placed in a supine position and transferred to the recovery area in a stable condition for observation and was discharged from the recovery room after meeting discharge criteria. Home discharge instructions given to the patient by the staff. The patient was reexamined prior to discharge. The patient will schedule a follow up in the clinic in 2-4 weeks.
[2023-09-21 08:16] VITALS: BP 147/66; PULSE 57; RESP 20
--- NOTE | 2023-09-21 12:05 | FL ---
EXAMINATION TYPE: FL guided pain mgmt statistic Intraoperative/procedural fluoroscopic services were provided. Total fluoroscopy time is 16.1 seconds with a total of 6 submitted images to PACS. Please s ee the operative/procedural note for further details. DAP: 0.26187 mGym2
== END 2023-09-21 08:16 ==
LOC: ORPAIN 06:12
PROVIDERS: ATTEND Specialist
DX: M47.816 Spondylosis without myelopathy or radiculopathy, lumbar region (principal); K21.9 Gastro-esophageal reflux disease without esophagitis; Z88.8 Allergy status to other drugs, medicaments and biological substances; Z79.82 Long term (current) use of aspirin; Z79.899 Other long term (current) drug therapy; Z79.01 Long term (current) use of anticoagulants; Z79.84 Long term (current) use of oral hypoglycemic drugs; Z87.891 Personal history of nicotine dependence
CPT/HCPCS: 64635; 64636; J2250; J3010; J2795; J1010; 99152; 99153

== ENCOUNTER 2023-09-25 07:09 | Day surgery (SDC) | payer MEDICARE ==
[2023-09-25 07:51] VITALS: TEMP 97.5
[2023-09-25] MEDS: LACTATED RINGERS 1,000 ML IV SCH (08:02)
[2023-09-25] MEDS: IV FLUID CONTINUATION 1,000 ML IV ONE (08:02)
[2023-09-25 08:25] LABS: Glucose,Whole Blood 122 mg/dL (70-110)
[2023-09-25] MEDS ORDERED: LIDOCAINE 1% INJ 10MG/ML (20 ML MDV) ONE (08:34)
[2023-09-25] MEDS ORDERED: PROPOFOL 10 MG/ML 20 ML VIAL IV ONE (08:34)
--- NOTE | 2023-09-25 08:42 | P.PCN ---
Date of Procedure: 09/25/23 Procedure(s) Performed: BRIEF HISTORY: Patient is a 73-year-old pleasant white male scheduled for an elective colonoscopy as a part of screening for colon cancer. PROCEDURE PERFORMED: Colonoscopy of the sigmoid colon with biopsy. PREOPERATIVE DIAGNOSIS: Screening for colon cancer. IV sedation per Anesthesia. PROCEDURE: After informed consent was obtained, the patient, was brought into the endoscopy unit. IV sedation was administered by Anesthesia under continuous monitoring. Digital rectal examination was normal. Initially the Olympus CF-160 flexible video colonoscope was then inserted in the rectum, gradually advanced into the sigmoid colon and there was solid stool encountered in this area. At this time the procedure was terminated. Examination was performed as the scope was gradually being withdrawn. The visualized portions of the sigmoid colon, and rectum appeared normal. In the proximal rectum there was a 3 to 4 mm sessile polyp that was removed by cold biopsy. Retroflexion was performed in the rectum and no lesions were seen. The patient tolerated the procedure well. IMPRESSION: Poor prep noted in the sigmoid colon hence procedure terminated 3 mm proximal rectal polyp status post removal by cold biopsy RECOMMENDATIONS: Findings of this examination were discussed with the patient as well as his family. He was advised to follow with the biopsy results. Recommended repeat colonoscopy with a 2-day prep in 3 to 4 weeks..
[2023-09-25 08:51] VITALS: RESP 18
[2023-09-25 09:09] VITALS: BP 153/74; PULSE 66
== END 2023-09-25 09:30 | disposition home or self-care (01) ==
LOC: ORWHC2ENDO 07:09
PROVIDERS: ATTEND Internal Medicine Gastroenterology
DX: Z12.11 Encounter for screening for malignant neoplasm of colon (principal); K62.1 Rectal polyp; I10 Essential (primary) hypertension; E78.5 Hyperlipidemia, unspecified; I25.10 Atherosclerotic heart disease of native coronary artery without angina pectoris; E11.9 Type 2 diabetes mellitus without complications; Z79.82 Long term (current) use of aspirin; Z79.01 Long term (current) use of anticoagulants; Z79.899 Other long term (current) drug therapy; Z88.1 Allergy status to other antibiotic agents; Z95.5 Presence of coronary angioplasty implant and graft; Z98.890 Other specified postprocedural states
CPT/HCPCS: 88305; 45380; J2001; J2704

== ENCOUNTER 2023-10-26 07:31 | Day surgery (SDC) | payer MEDICARE ==
[2023-10-25 11:14] VITALS: BMI 23.7
[~2023-10-26 07:31] MED LIST changes: -LACTATED RINGERS 1,000 ML IV SCH; +LIDOCAINE 1% (10MG/ML) FOR IV START INTRADERMA PRN
[2023-10-26] MEDS: IV FLUID CONTINUATION 1,000 ML IV ONE ×2 (07:51→08:32)
[2023-10-26 07:57] VITALS: TEMP 97
[2023-10-26] MEDS: LACTATED RINGERS 1,000 ML IV SCH (08:01)
[2023-10-26 08:08] LABS: Glucose,Whole Blood 101 mg/dL (70-110)
[2023-10-26] MEDS ORDERED: PROPOFOL 10 MG/ML 20 ML VIAL IV ONE (08:33)
[2023-10-26] MEDS ORDERED: LIDOCAINE 1% INJ 10MG/ML (20 ML MDV) ONE (08:33)
--- NOTE | 2023-10-26 08:57 | P.PCN ---
Date of Procedure: 10/26/23 Procedure(s) Performed: BRIEF HISTORY: Patient is a 73-year-old pleasant white male scheduled for an elective colonoscopy as a part of screening for colorectal neoplasia. PROCEDURE PERFORMED: Colonoscopy. PREOPERATIVE DIAGNOSIS: Screening for colon cancer. IV sedation per Anesthesia. PROCEDURE: After informed consent was obtained, the patient, was brought into the endoscopy unit. IV sedation was administered by Anesthesia under continuous monitoring. Digital rectal examination was normal. Initially the Olympus CF-160 flexible video colonoscope was then inserted in the rectum, gradually advanced into the cecum without any difficulty. Careful examination was performed as the scope was gradually being withdrawn. Ileocecal valve and the appendiceal orifice were visualized and appeared normal. Prep was fair. t. Mucosa of the cecum, ascending colon, transverse colon, descending colon, sigmoid colon, and rectum appeared normal. Retroflexion was performed in the rectum and no lesions were seen. The patient tolerated the procedure well. IMPRESSION: Normal-appearing colon from rectum to cecum with no evidence of colorectal neoplasia. RECOMMENDATIONS: Findings of this examination were discussed with the patient as well as family. He was advised to have repeat screening colonoscopy in 10 years..
[2023-10-26 09:10] LABS: Glucose,Whole Blood 92 mg/dL (70-110)
[2023-10-26 09:13] VITALS: PULSE 53
[2023-10-26 09:35] VITALS: BP 158/71; RESP 18
== END 2023-10-26 09:45 | disposition home or self-care (01) ==
LOC: ORWHC2ENDO 07:31
PROVIDERS: ATTEND Internal Medicine Gastroenterology
DX: Z12.11 Encounter for screening for malignant neoplasm of colon (principal); I25.10 Atherosclerotic heart disease of native coronary artery without angina pectoris; I10 Essential (primary) hypertension; E78.5 Hyperlipidemia, unspecified; E11.9 Type 2 diabetes mellitus without complications; M19.90 Unspecified osteoarthritis, unspecified site; Z95.5 Presence of coronary angioplasty implant and graft; Z79.01 Long term (current) use of anticoagulants; Z79.82 Long term (current) use of aspirin; Z79.899 Other long term (current) drug therapy; Z88.1 Allergy status to other antibiotic agents; Z79.1 Long term (current) use of non-steroidal anti-inflammatories (NSAID)
CPT/HCPCS: J2001; J2704; G0121

== ENCOUNTER → 2023-11-01 | Outpatient (CLI) | payer MEDICARE | LOC: PNWHC3 07:40 | PROVIDERS: ATTEND Specialist | DX: M47.816 Spondylosis without myelopathy or radiculopathy, lumbar region | CPT/HCPCS: 99211 ==

== ENCOUNTER → 2024-01-03 | Outpatient (CLI) | payer MEDICARE ==
[2024-01-03 09:16] VITALS: BP 133/61; PULSE 54; RESP 16
--- NOTE | 2024-01-03 14:38 | P.PAINPG ---
PQRS Measure Charge Sheet Comment: A 73 yr old male presents today w severe and chronic LBP x 3 yrs secondary to spinal stenosis, radiculopathy, spondylosis and facet arthropathy without myelopathy for medication refills. Pt states pain level is provoked at 7 /10 in intensity, constant, localized in the lower lumbar spine where it meets the ta ilbone, predominantly axial, achy in character w occasional shooting pain L & R of midline. Pain is provoked by walking/ standing > 5 mins. Pain is alleviated by medications, heat, hot showers, PT 4 weeks in Jun 2022, chiropractic treatments 10 weeks in Mar 2022, physician guided home stretching regimen every morning since Jun 2022, repositioning and rest. . Interventional procedures include JUDSON L5-S1 x2, BL RFA L3-L5 x2 (09/21/23), BL TPIs L2-L1 x1 (May 2023) Medications include [place] 7.5/325mg #90, Tyl, Robaxin 500mg #60 REVIEW OF ORGAN SYSTEMS: CONSTITUTIONAL: No fevers or chills. No recent weight loss. NEUROLOGICAL: + numbness and tingling along the distal extremities. No seizure disorders or headaches. MUSCULOSKELETAL: + pain PSYCHIATRIC: Denies current depression or suicidal thoughts. Physical Examinations : Constitutional : Cooperative , not in acute distress . Neurologic : Cranial nerve II to XII intact. No focal neurological deficits. Psychiatric : alert & oriented x 3. Matching mood & appropriate affect. Judgment & insight intact. Musculoskeletal : Cervical Spine Motor strength in the deltoid and biceps: Normal right side. Normal Left side Motor strength biceps and the wrist extensors: Normal right side . Normal left side Motor strength in the triceps muscle: Normal right side. Normal left side Deep tendon reflexes: Normal at the biceps. Normal at Brachioradialis. Normal at triceps Vertebral body tenderness to deep palpation over Cervical facet loading test: positive bilaterally Spurling test: positive bilaterally Neck distraction test: positive bilaterally Taiwo sign: positive bilaterally Lumbar spine Motor strength lower extremities ,thigh and legs 5/5 Right side , 5/5 Left side Deep tendon reflexes : Normal Knee Jerk. Normal Ankle Jerk Vertebral body tenderness over L5 + Villalpando Test positive R L5-S1 Taut bands w twitch response Lumbar facet Loading Test: positive Right / positive Left L4-L5, L5-S1 Range of motion of the lumbar spine Flexion 30 degrees, extension 10 degrees Straight Leg Raise test: Left/ Right positive at degree Evie test: positive right / positive left. Severe tenderness over the Sacroiliac joint on the Right / Left sides Gaenslen test: positive bilaterally Seated flexion test: positive bilaterally. Sacral spine : Severe tenderness over the Sacroiliac joint: right side / left side Range of motion: Flexion of the lumbar spine <60 degrees Range of motion: Extension of the lumbar spine <20 degrees Gaenslen's Test positive Kahlil's Test positive Evie test: positive right side / left side Thigh Thrust Test Sacral Thrust Test Assessment/ Plan : Lumbar stenosis, lumbar spondylosis Recommendation of medication management. Risks, benefits of procedure discussed and pt verbalized understanding. Protocol for discontinuation/ continuation of medications archana procedure discussed. Minimal anesthesia including Fentanyl and Versed if clinically indicated. Narcotic/ Opiate agreement signed 12/14/22. UDS collected 01/03/24. [place] 7.5/325mg #90 , Robaxin 750mg #90 w 1 RF. Use, side effects, adverse reactions and safe storage discussed. All questions answered. - Pain Location Right Lower Back Non-Pharmacological Interventions: Heat, Home Exercise, Inactivity, Physical Therapy, Sitting, Stretching Pharmacological Interventions: Block, Epidural, PRN Medication, Scheduled Medication, Topical Medication PQRS Narrative: Smoking Status Former smoker Narcotic Agreement Date Signed 12/14/22 Hx Alcohol Use (MH) Yes: RARE Home Medications: Ambulatory Orders Aspirin EC [Ecotrin Low Dose] 81 mg PO DAILY 12/07/13 Isosorbide Mononitrate [Imdur] 120 mg PO BID 12/07/13 Metoprolol Tartrate [Lopressor] 50 mg PO QAM 12/07/13 Nitroglycerin 0.4 mg SL DIRECTED PRN 01/27/14 Rivaroxaban [Xarelto] 20 mg PO HS 01/27/14 Amiodarone [Cordarone] 100 mg PO QAM 09/13/22 Atorvastatin [Lipitor] 40 mg PO HS 09/13/22 Losartan [Cozaar] 50 mg PO QAM 09/13/22 Empagliflozin/Metformin HCl [Synjardy 12.5-1,000 mg Tablet] 2 each PO QAM 08/14/23 Semaglutide [Ozempic] 0.5 mg SQ WE 08/14/23 Cinnamon Bark [Cinnamon] 2 cap PO BID 09/20/23 HYDROcodone/APAP 7.5-325MG [[place] 7.5-325] 1 tab PO TID PRN 30 Days #90 tab 01/03/24 HYDROcodone/APAP 7.5-325MG [[place] 7.5-325] 1 tab PO TID PRN 30 Days #90 tab 01/03/24 methocarbamoL [Robaxin] 750 mg PO TID PRN 30 Days #90 tab 01/03/24 Controlled Substance Measures - Controlled Substance Measures Is patient prescribed a controlled substance at discharge?: Yes When asked, does pt state using other controlled substances?: No If prescribed controlled substance>3 days was MAPS reviewed?: Yes
== END | disposition home or self-care (01) ==
LOC: PNWHC3 07:59
PROVIDERS: ATTEND Specialist
DX: M47.816 Spondylosis without myelopathy or radiculopathy, lumbar region (principal)
CPT/HCPCS: 80307; 99211; 99212

== ENCOUNTER → 2024-03-05 | Outpatient (CLI) | payer MEDICARE ==
[2024-03-05 09:06] VITALS: BP 152/64; PULSE 52; RESP 16
--- NOTE | 2024-03-05 14:40 | P.PAINPG ---
PQRS Measure Charge Sheet Comment: A 73 yr old male presents today w severe and chronic LBP x 3 yrs secondary to spinal stenosis, radiculopathy, spondylosis and facet arthropathy without myelopathy for medication refills. Pt states pain level is provoked at 7 /10 in intensity, constant, localized in the lower lumbar spine where it meets the ta ilbone, predominantly axial, achy in character w occasional shooting pain L & R of midline. Pain is provoked by walking/ standing > 5 mins. Pain is alleviated by medications, heat, hot showers, PT 4 weeks in Jun 2022, chiropractic treatments 10 weeks in Mar 2022, physician guided home stretching regimen every morning since Jun 2022, repositioning and rest. . Interventional procedures include JUDSON L5-S1 x2, BL RFA L3-L5 x2 (09/21/23), BL TPIs L2-L1 x1 (May 2023) Medications include Seneca 7.5/325mg #90, Tyl, Robaxin 500mg #60 REVIEW OF ORGAN SYSTEMS: CONSTITUTIONAL: No fevers or chills. No recent weight loss. NEUROLOGICAL: + numbness and tingling along the distal extremities. No seizure disorders or headaches. MUSCULOSKELETAL: + pain PSYCHIATRIC: Denies current depression or suicidal thoughts. Physical Examinations : Constitutional : Cooperative , not in acute distress . Neurologic : Cranial nerve II to XII intact. No focal neurological deficits. Psychiatric : alert & oriented x 3. Matching mood & appropriate affect. Judgment & insight intact. Musculoskeletal : Cervical Spine Motor strength in the deltoid and biceps: Normal right side. Normal Left side Motor strength biceps and the wrist extensors: Normal right side . Normal left side Motor strength in the triceps muscle: Normal right side. Normal left side Deep tendon reflexes: Normal at the biceps. Normal at Brachioradialis. Normal at triceps Vertebral body tenderness to deep palpation over Cervical facet loading test: positive bilaterally Spurling test: positive bilaterally Neck distraction test: positive bilaterally Taiwo sign: positive bilaterally Lumbar spine Motor strength lower extremities ,thigh and legs 5/5 Right side , 5/5 Left side Deep tendon reflexes : Normal Knee Jerk. Normal Ankle Jerk Vertebral body tenderness over L5 + Villalpando Test positive R L5-S1 Taut bands w twitch response Lumbar facet Loading Test: positive Right / positive Left L4-L5, L5-S1 Range of motion of the lumbar spine Flexion 30 degrees, extension 10 degrees Straight Leg Raise test: Left/ Right positive at degree Evie test: positive right / positive left. Severe tenderness over the Sacroiliac joint on the Right / Left sides Gaenslen test: positive bilaterally Seated flexion test: positive bilaterally. Sacral spine : Severe tenderness over the Sacroiliac joint: right side / left side Range of motion: Flexion of the lumbar spine <60 degrees Range of motion: Extension of the lumbar spine <20 degrees Gaenslen's Test positive Kahlil's Test positive Evie test: positive right side / left side Thigh Thrust Test Sacral Thrust Test Assessment/ Plan : Lumbar stenosis, lumbar spondylosis Recommendation of medication management. Risks, benefits of procedure discussed and pt verbalized understanding. Protocol for discontinuation/ continuation of medications archana procedure discussed. Minimal anesthesia including Fentanyl and Versed if clinically indicated. Narcotic/ Opiate agreement signed 12/14/22. UDS from 01/03/24 reviewed and consistent. Seneca 7.5/325mg #90 , Robaxin 750mg #90 w 1 RF. Use, side effects, adverse reactions and safe storage discussed. All questions answered. PQRS Narrative: Smoking Status Former smoker Narcotic Agreement Date Signed 12/14/22 Hx Alcohol Use (MH) Yes: RARE Home Medications: Ambulatory Orders Aspirin EC [Ecotrin Low Dose] 81 mg PO DAILY 12/07/13 Isosorbide Mononitrate [Imdur] 120 mg PO BID 12/07/13 Metoprolol Tartrate [Lopressor] 50 mg PO QAM 12/07/13 Nitroglycerin 0.4 mg SL DIRECTED PRN 01/27/14 Rivaroxaban [Xarelto] 20 mg PO HS 01/27/14 Amiodarone [Cordarone] 100 mg PO QAM 09/13/22 Atorvastatin [Lipitor] 40 mg PO HS 09/13/22 Losartan [Cozaar] 50 mg PO QAM 09/13/22 Empagliflozin/Metformin HCl [Synjardy 12.5-1,000 mg Tablet] 2 each PO QAM 08/14/23 Semaglutide [Ozempic] 0.5 mg SQ WE 08/14/23 Cinnamon Bark [Cinnamon] 2 cap PO BID 09/20/23 HYDROcodone/APAP 7.5-325MG [Seneca 7.5-325] 1 tab PO TID PRN 30 Days #90 tab 03/05/24 HYDROcodone/APAP 7.5-325MG [Seneca 7.5-325] 1 tab PO TID PRN 30 Days #90 tab 03/05/24 methocarbamoL [Robaxin] 750 mg PO TID PRN 30 Days #90 tab 03/05/24 Controlled Substance Measures - Controlled Substance Measures Is patient prescribed a controlled substance at discharge?: Yes When asked, does pt state using other controlled substances?: No If prescribed controlled substance>3 days was MAPS reviewed?: Yes
== END ==
LOC: PNWHC3 08:40
PROVIDERS: ATTEND Specialist
DX: M47.26 Other spondylosis with radiculopathy, lumbar region (principal); M48.061 Spinal stenosis, lumbar region without neurogenic claudication; Z88.8 Allergy status to other drugs, medicaments and biological substances; Z87.891 Personal history of nicotine dependence
CPT/HCPCS: 99211

== ENCOUNTER 2024-06-05 07:11 | Day surgery (SDC) | payer MEDICARE ==
[2024-06-05 08:01] VITALS: RESP 16; TEMP 97.8
[2024-06-05] MEDS: LACTATED RINGERS 1,000 ML IV SCH (08:06)
[2024-06-05] MEDS: IV FLUID CONTINUATION 1,000 ML IV ONE ×2 (08:07→09:10)
[2024-06-05] MEDS: LIDOCAINE 1% (10MG/ML) FOR IV START INTRADERMA STA (08:07)
[2024-06-05 08:19] LABS: Glucose,Whole Blood 114 mg/dL (70-110)
[2024-06-05] MEDS ORDERED: ROPIVACAINE 5MG/ML 20ML VIAL ONE (08:42)
[2024-06-05] MEDS ORDERED: methylPREDNISolone ACETATE 40 MG/ML 1 ML VIAL ONE (08:42)
[2024-06-05] MEDS ORDERED: MIDAZOLAM 2 MG/2 ML VIAL ONE (08:42)
[2024-06-05] MEDS ORDERED: fentaNYL (PF) 50 MCG/ML 2 ML AMP ONE (08:42)
--- NOTE | 2024-06-05 09:11 | FL ---
EXAMINATION TYPE: FL guided pain mgmt statistic DATE OF EXAM: 06/05/2024 CLINICAL INDICATION: Male, 74 years old with history of RF LUM; PHH, pain TECHNIQUE: Fluoroscopy. COMPARISON: None. FINDINGS: Fluoroscopic guidance was provided during pain relief procedure performed by Dr. Warner . A total of 10.1 seconds of fluoroscopic time was utilized during the procedure and 6 images are ac quired. Image acquired shows needle localization at several levels in the lumbar spine bilaterally. Degeneration changes of the visualized joints. Total DAP: [id number] mGym2. IMPRESSION: As Above. [facility], , 06/05/2024 9:09 AM
--- NOTE | 2024-06-05 09:14 | P.PCN ---
Date of Procedure: 06/05/24 Procedure(s) Performed: PREOPERATIVE DIAGNOSIS: 1-Lumbar Spondylosis with Facet Arthropathy without myelopathy. 2- Lumber degenerative disc disease. POSTOPERATIVE DIAGNOSIS: 1- Lumbar Spondylosis with Facet Arthropathy without myelopathy. 2- Lumber degenerative disc disease. PROCEDURES : Bilateral Radiofrequency thermocoagulation, L3 , L4 , and L5 medial branch, with fluoroscopic guidance (fluoroscopy images available in the radiology department) ( to denervate the facet joint at bilateral L4-5 ,and L5-S1 levels ). ANESTHESIA: Moderate sedations with versed 2 mg ,and fentanyle 100 mcg . ( sedations started at 08:42 , end at 09:02 ) EBL: Minimal PROCEDURE INDICATION: The patient with low back pain secondary to lumbar facet arthropathy who had more than 80% relief of her pain with previous diagnostic lumbar medial branch block with bupivacaine. PROCEDURE DESCRIPTION / TECHNIQUE: The patient was seen and identified in the preoperative area. Risks, benefits, complications, including but not limited to risk of infection ,bleeding , allergic reactions to the medications and no complete pain releife , and alternatives were discussed with the patient, the patient agreed to proceed with the procedure and signed the consent. IV was started. Vital signs remained stable throughout the procedure. Patient was taken to the OR and time out was completed. The patient was placed in the prone position on the procedure table. The lumber area was prepped and draped in the usual sterile fashion. . Vital signs were closely monitored during the procedure .IV sedation was used during the procedure to decrease patients anxiety. Using AP and then oblique fluoroscopy, the ``eye of the Lalo dog corresponding to the connection between the superior and transverse articular processes of right L3, L4, and L5 were identified, marked, and localized with 1% lidocaine. Subsequently, a 18 guage ( Venom ) 100-mm radiofrequency cannula with a 10-mm active tip was advanced guided by fluoroscopy to each of the``eyes of the Lalo dog at right L3, L4, and L5. Each site then underwent sensory testing at 50 Hz and 0 to 1 volt and motor testing at 2.5 Hz and 0 to 3 volt with local stimulation, but no radicular symptoms down the legs. Thereafter each sites underwent radiofrequency thermocoagulation at 80 degrees celsius for 90 seconds after injecting 0.5 ml of PF Ropivacaine 1ml, then after the thermocoagulation done , 1 ml of the block solution containing Depo-Medrol 20 mg and 3 ml of Ropivacaine 0.5% was injected at the right L3 , L4 , and L5 , levels after negative aspiration of CSF and blood and with no paresthesias. Cannulas were retracted while injecting lidocaine 1% until the needle is out. The same procedure was repeated at the level of Left L3, L4, and L5 levels. At the end of the procedure, the skin was cleansed and bandages were applied. COMPLICATIONS: No acute complications. DISPOSITION / PLANS: The patient was placed in a supine position and transferred to the recovery area in a stable condition for observation and was discharged from the recovery room after meeting discharge criteria. Home discharge instructions given to the patient by the staff. The patient was reexamined prior to discharge. The patient will schedule a follow up in the clinic in 2-4 weeks.
[2024-06-05 09:27] VITALS: BP 156/74; PULSE 55
== END 2024-06-05 09:40 | disposition home or self-care (01) ==
LOC: ORPAIN 07:11
PROVIDERS: ATTEND Specialist
DX: M47.816 Spondylosis without myelopathy or radiculopathy, lumbar region (principal); M51.369 Other intervertebral disc degeneration, lumbar region without mention of lumbar back pain or lower extremity pain; Z88.8 Allergy status to other drugs, medicaments and biological substances
CPT/HCPCS: 64635; 64636; J2250; J3010; J2795; J1010; 99152

== ENCOUNTER → 2024-07-02 | Outpatient (CLI) | payer MEDICARE ==
[2024-07-02 08:57] VITALS: BP 122/72; PULSE 61; RESP 16; TEMP 96.6
--- NOTE | 2024-07-02 15:07 | P.PAINPG ---
PQRS Measure Charge Sheet Comment: A 73 yr old male presents today w severe and chronic LBP x 3 yrs secondary to spinal stenosis, radiculopathy, spondylosis and facet arthropathy without myelopathy for medication refills and evaluation s/p BL RFA L4-L5/ L5-S1. Pt states he experienced >75% pain relief s/p procedure. Pt states pain level is provoked at 8 /10 in intensity, intermittent, localized in the lower lumbar spine where it meets the tailbone, predominantly axial, achy in character w occasional shooting pain towards the BLEs. Pain is provoked by lifting. Pain is alleviated by medications, heat, hot showers, PT 4 weeks in Jun 2022, chiropractic treatments 10 weeks in Mar 2022, physician guided home stretching regimen every morning since Jun 2022, repositioning and rest. . Interventional procedures include JUDSON L5-S1 x2, BL RFA L3-L5 x3 (09/16, 06/17), BL TPIs L2-L1 x1 (May 2023) Medications include Bascom 7.5/325mg #90, Tyl, Robaxin 500mg #60 REVIEW OF ORGAN SYSTEMS: CONSTITUTIONAL: No fevers or chills. No recent weight loss. NEUROLOGICAL: + numbness and tingling along the distal extremities. No seizure disorders or headaches. MUSCULOSKELETAL: + pain PSYCHIATRIC: Denies current depression or suicidal thoughts. Physical Examinations : Constitutional : Cooperative , not in acute distress . Neurologic : Cranial nerve II to XII intact. No focal neurological deficits. Psychiatric : alert & oriented x 3. Matching mood & appropriate affect. Judgment & insight intact. Musculoskeletal : Cervical Spine Motor strength in the deltoid and bic eps: Normal right side. Normal Left side Motor strength biceps and the wrist extensors: Normal right side . Normal left side Motor strength in the triceps muscle: Normal right side. Normal left side Deep tendon reflexes: Normal at the biceps. Normal at Brachioradialis. Normal at triceps Vertebral body tenderness to deep palpation over Cervical facet loading test: positive bilaterally Spurling test: positive bilaterally Neck distraction test: positive bilaterally Taiwo sign: positive bilaterally Lumbar spine Motor strength lower extremities ,thigh and legs 5/5 Right side , 5/5 Left side Deep tendon reflexes : Normal Knee Jerk. Normal Ankle Jerk Vertebral body tenderness over L5 + Villalpando Test positive R L5-S1 Taut bands w twitch response Lumbar facet Loading Test: positive Right / positive Left L4-L5, L5-S1 Range of motion of the lumbar spine Flexion 30 degrees, extension 10 degrees Straight Leg Raise test: Left/ Right positive at degree Evie test: positive right / positive left. Severe tenderness over the Sacroiliac joint on the Right / Left sides Gaenslen test: positive bilaterally Seated flexion test: positive bilaterally. Sacral spine : Severe tenderness over the Sacroiliac joint: right side / left side Range of motion: Flexion of the lumbar spine <60 degrees Range of motion: Extension of the alvino mbar spine <20 degrees Gaenslen's Test positive Kahlil's Test positive Evie test: positive right side / left side Thigh Thrust Test Sacral Thrust Test Assessment/ Plan : Lumbar stenosis, lumbar spondylosis Recommendation of medication management. Narcotic/ Opiate agreement signed 12/14/22. UDS collected 07/02/24. Bascom 7.5/325mg #90 , Robaxin 750mg #90 w 1 RF. Use, side effects, adverse reactions and safe storage discussed. All questions answered. PQRS Narrative: Smoking Status Former smoker Narcotic Agreement Date Signed 01/03/24 Hx Alcohol Use (MH) Yes: RARE Home Medications: Ambulatory Orders Aspirin EC [Ecotrin Low Dose] 81 mg PO DAILY 12/07/13 Isosorbide Mononitrate [Imdur] 120 mg PO BID 12/07/13 Metoprolol Tartrate [Lopressor] 25 mg PO QAM 12/07/13 Nitroglycerin 0.4 mg SL DIRECTED PRN 01/27/14 Rivaroxaban [Xarelto] 20 mg PO HS 01/27/14 Amiodarone [Cordarone] 100 mg PO QAM 09/13/22 Atorvastatin [Lipitor] 40 mg PO HS 09/13/22 Losartan [Cozaar] 50 mg PO QAM 09/13/22 Empagliflozin/Metformin HCl [Synjardy 12.5-1,000 mg Tablet] 2 each PO QAM 08/14/23 Semaglutide [Ozempic] 0.5 mg SQ WE 08/14/23 Cinnamon Bark [Cinnamon] 2 cap PO BID 09/20/23 HYDROcodone/APAP 7.5-325MG [Bascom 7.5-325] 1 tab PO TID PRN 30 Days #90 tab 07/02/24 HYDROcodone/APAP 7.5-325MG [Bascom 7.5-325] 1 tab PO TID PRN 30 Days #90 tab 07/02/24 methocarbamoL [Robaxin-750] 750 mg PO TID PRN 30 Days #90 tab 07/02/24 Controlled Substance Measures - Controlled Substance Measures Is patient prescribed a controlled substance at discharge?: Yes When asked, does pt state using other controlled substances?: No If prescribed controlled substance>3 days was MAPS reviewed?: Yes
== END ==
LOC: PNWHC3 08:28
PROVIDERS: ATTEND Specialist
DX: M47.26 Other spondylosis with radiculopathy, lumbar region (principal); M48.061 Spinal stenosis, lumbar region without neurogenic claudication; Z87.891 Personal history of nicotine dependence; Z88.8 Allergy status to other drugs, medicaments and biological substances
CPT/HCPCS: 80307; 99212

== ENCOUNTER 2024-08-28 09:25 | Inpatient (IN) | payer MEDICARE ==
--- NOTE | 2024-08-28 09:53 | ED ---
General Adult HPI - General Chief complaint: Chest Pain Stated complaint: Chest Pain Time Seen by Provider: 08/28/24 09:33 Source: patient, RN notes reviewed Mode of arrival: ambulatory Limitations: no limitations - History of Present Illness Initial comments: Patient is a 74-year-old male present to the emergency department with concerns with chest discomfort. Onset was yesterday evening while working in the car, moderate exertion. Discomfort is currently 6/10. There is pressure and indigestion in the chest with radiation to the left arm. Patient does have history of similar symptoms 3-4 times previously with previous NC and quadruple bypass. No associated dyspnea, nausea, or diaphoresis. Patient took nitroglycerin with improvement of symptoms. Patient tried his GI medication without improvement of symptoms. - Related Data Home Medications Medication Instructions Recorded Confirmed Aspirin EC [Ecotrin Low Dose] 81 mg PO HS 12/07/13 08/28/24 Isosorbide Mononitrate [Imdur] 120 mg PO BID 12/07/13 08/28/24 Nitroglycerin 0.4 mg SL Q5M PRN 01/27/14 08/28/24 Rivaroxaban [Xarelto] 20 mg PO W/SUPPER 01/27/14 08/28/24 Losartan [Cozaar] 50 mg PO DAILY 09/13/22 08/28/24 Empagliflozin/Metformin HCl 2 tab PO DAILY 08/14/23 08/28/24 [Synjardy 12.5-1,000 mg Tablet] Amiodarone [Cordarone] 100 mg PO DAILY 08/28/24 08/28/24 Ezetimibe [Zetia] 10 mg PO DAILY 08/28/24 08/28/24 Metoprolol Succinate [Metoprolol 25 mg PO DAILY 08/28/24 08/28/24 Succinate ER] Omeprazole 20 mg PO DAILY 08/28/24 08/28/24 Semaglutide [Ozempic] 0.5 mg SQ WE 08/28/24 08/28/24 methocarbamoL [Robaxin] 750 mg PO TID PRN 08/28/24 08/28/24 Previous Rx's Medication Instructions Recorded HYDROcodone/APAP 7.5-325MG [[place] 1 tab PO TID PRN 30 Days #90 tab 07/02/24 7.5-325] Allergies Allergy/AdvReac Type Severity Reaction Status Date / Time niacin Allergy Itching Verified 08/28/24 13:50 Review of Systems ROS Statement: Those systems with pertinent positive or pertinent negative responses have been documented in the HPI. ROS Other: All systems not noted in ROS Statement are negative. Constitutional: Denies: fever Eyes: Denies: eye pain ENT: Denies: ear pain Respiratory: Denies: dyspnea Cardiovascular: Reports: as per HPI, chest pain Musculoskeletal: Denies: back pain Past Medical History Past Medical History: Coronary Artery Disease (CAD), Diabetes Mellitus, Hearing Disorder / Deafness, Hyperlipidemia, Hypertension, Myocardial Infarction (NC), Osteoarthritis (OA), Renal Disease Additional Past Medical History / Comment(s): 2001 mild NC. Hx of shingles with residual nerve pain in shoulder and chest. Hearing aid use.kidney stones, Last Myocardial Infarction Date:: 2001 History of Any Multi-Drug Resistant Organisms: None Reported Past Surgical History: Coronary Bypass/CABG, Heart Catheterization Additional Past Surgical History / Comment(s): 1993 quadruple bypass, cardioversion, heart catheterization X4-5, carpal tunnel surgery, cataract surgery, pain procedures, bilateral carpal tunnel surgery, colonoscopy. Past Anesthesia/Blood Transfusion Reactions: No Reported Reaction Past Psychological History: No Psychological Hx Reported Smoking Status: Former smoker Past Alcohol Use History: None Reported Past Drug Use History: None Reported - Past Family History Mother Family Medical History: No Reported History General Exam Limitations: no limitations General appearance: alert, in no apparent distress Head exam: Present: normocephalic Eye exam: Present: normal appearance Neck exam: Present: normal inspection Respiratory exam: Present: normal lung sounds bilaterally. Absent: chest wall tenderness Cardiovascular Exam: Present: regular rate, normal rhythm, normal heart sounds Expanded Peripheral pulses: 2+: Radial (R), Radial (L), Posterior Tibialis (R), Posterior Tibialis (L) GI/Abdominal exam: Present: soft. Absent: tenderness, pulsatile mass Extremities exam: Present: normal inspection. Absent: pedal edema, calf tenderness Neurological exam: Present: alert Psychiatric exam: Present: normal affect, normal mood Skin exam: Present: normal color Course Vital Signs 08/28/24 08/28/24 08/28/24 09:26 10:10 12:29 Temperature 97.6 F Pulse Rate 56 L 59 L 56 L Respiratory 18 16 18 Rate Blood Pressure 164/82 153/84 O2 Sat by Pulse 97 95 98 Oximetry EKG Findings - EKG Results: EKG: interpreted by ERMD (Left bundle branch block nonspecific ST-T), sinus rh ythm, normal axis EKG shows: bradycardia Medical Decision Making - Medical Decision Making Was pt. sent in by a medical professional or institution (, PA, DIVISION OPERATIONS MANAGER, urgent care, hospital, or [place] health care facility...) When possible be specific @ -No Did you speak to anyone other than the patient for history (EMS, parent, family, police, friend...)? What history was obtained from this source @ -No Did you review nursing and triage notes (agree or disagree)? Why? @ -I reviewed and agree with nursing and triage notes Were old charts reviewed (outside hosp., previous admission, EMS record, old EKG, old radiological studies, urgent care reports/EKG's, [place] health care facility records)? Report findings @ -No old charts were reviewed Differential Diagnosis (chest pain, altered mental status, abdominal pain women, abdominal pain men, vaginal bleeding, weakness, fever, dyspnea, syncope, headache, dizziness, GI bleed, back pain, seizure, CVA, palpatations, mental health, musculoskeletal)? @ -Differential Chest Pain: Stable Angina, Unstable Angina, STEMI, NSTEMI Aortic Dissection, Pneumothorax, Musculoskeletal, Esophageal Spasm GERD, Cholecystitis, Pancreatitis, Zoster, this is not meant to be an all-inclusive list. EKG interpreted by me (3pts min.). @ -As above X-rays interpreted by me (1pt min.). @ -Chest x-ray does show some mild interstitial changes CT interpreted by me (1pt min.). @ -CT chest does show some mild interstitial changes U/S interpreted by me (1pt. min.). @ -None done What testing was considered but not performed or refused? (CT, X-rays, U/S, labs)? Why? @ -None What meds were considered but not given or refused? Why? @ -None Did you discuss the management of the patient with other professionals (professionals i.e. , [facility], DIVISION OPERATIONS MANAGER, lab, RT, psych nurse, social worker palliative care, health lead, teacher, national insurance officer, director case management)? Give summary @ -Case was discussed with Dr. Xie who will admit covering sound physician group, covering for Dr. Zapata Was smoking cessation discussed for >3mins.? @ -No Was critical care preformed (if so, how long)? @ -31 minutes critical care time Were there social determinants of health that impacted care today? How? (Homelessness, low income, unemployed, alcoholism, drug addiction, transportation, low edu. Level, literacy, decrease access to med. care, intermediate, rehab)? @ -No Was there de-escalation of care discussed even if they declined (Discuss DNR or withdrawal of care, Hospice)? DNR status @ -No What co-morbidities impacted this encounter? (DM, HTN, Smoking, COPD, CAD, Cancer, CVA, ARF, Chemo, Hep., AIDS, mental health diagnosis, sleep apnea, morbid obesity)? @ -History of cardiac disease with previous stents and bypass Was patient admitted / discharged? Hospital course, mention meds given and route, prescriptions, significant lab abnormalities, going to OR and other pertinent info. @ -Patient presents with cardiac disease history with new chest discomfort. Troponin minimally elevated. Patient will be admitted with cardiac consult. Patient reevaluated and updated. Admission orders written. Undiagnosed new problem with uncertain prognosis? @ -No Drug Therapy requiring intensive monitoring for toxicity (Heparin, Nitro, Insulin, Cardizem)? @ -Heparin drip Were any procedures done? @ -No Diagnosis/symptom? @ -Unstable angina Acute, or Chronic, or Acute on Chronic? @ -Acute Uncomplicated (without systemic symptoms) or Complicated (systemic symptoms)? @ -Default Side effects of treatment? @ -No Exacerbation, Progression, or Severe Exacerbation? @ -No Poses a threat to life or bodily function? How? (Chest pain, USA, NC, pneumonia, PE, COPD, DKA, ARF, appy, cholecystitis, CVA, Diverticulitis, Homicidal, Suicidal, threat to staff... and all critical care pts) @ -Threat to cardiac function - Lab Data Result diagrams: 08/28/24 10:01 08/28/24 10:01 Lab Results 08/28/24 08/28/24 08/28/24 Range/Units 10:01 10:01 10:01 WBC 7.15 (4.50-10.00) 10*3/uL RBC 4.19 L (4.40-5.60) 10*6/uL Hgb 14.5 (13.0-17.0) g/dL Hct 41.1 (39.6-50.0) % MCV 98.1 H (80.0-97.0) fL MCH 34.6 H (27.0-32.0) pg MCHC 35.3 (32.0-37.0) g/dL Plt Count 259 (140-440) 10*3/uL MPV 9.0 L (9.5-12.2) fL Immature Gran % (Auto) 0.3 % Neutrophils % 64.9 % Lymphocytes % 19.6 % Monocytes % 10.1 % Eosinophils % 4.1 % Basophils % 1.0 % Immature Gran # 0.02 (0.00-0.04) 10*3/uL Neutrophils # 4.65 (1.80-7.70) 10*3/uL Lymphocytes # 1.40 (0.90-5.00) 10*3/uL Monocytes # 0.72 (0.20-1.00) 10*3/uL Eosinophils # 0.29 (0.04-0.35) 10*3/uL Basophils # 0.07 (0.00-0.10) 10*3/uL PT 11.1 (10.0-12.5) sec INR 1.0 (<1.2) APTT 23.3 (22.0-30.0) sec D-Dimer 1.15 H (<0.60) mg/L FEU Sodium 139 (137-145) mmol/L Potassium 4.4 (3.5-5.1) mmol/L Chloride 103 (98-107) mmol/L Carbon Dioxide 24 (22-30) mmol/L Anion Gap 12 mmol/L BUN 18 (9-20) mg/dL Creatinine 0.77 (0.66-1.25) mg/dL Est GFR (CKD-EPI)AfAm >90 (>60 ml/min/1.73 sqM) Est GFR (CKD-EPI)NonAf 89 (>60 ml/min/1.73 sqM) Glucose 145 H (74-99) mg/dL Calcium 9.3 (8.4-10.2) mg/dL Magnesium 2.0 (1.6-2.3) mg/dL Total Bilirubin 0.6 (0.2-1.3) mg/dL AST 21 (17-59) U/L ALT 18 (4-49) U/L Alkaline Phosphatase 79 (38-126) U/L Troponin I (0.000-0.034) ng/mL Total Protein 7.1 (6.3-8.2) g/dL Albumin 4.1 (3.5-5.0) g/dL Amylase 64 (30-110) U/L Lipase 161 (23-300) U/L // Range/Units 10:01 WBC (4.50-10.00) 10*3/uL RBC (4.40-5.60) 10*6/uL Hgb (13.0-17.0) g/dL Hct (39.6-50.0) % MCV (80.0-97.0) fL MCH (27.0-32.0) pg MCHC (32.0-37.0) g/dL Plt Count (140-440) 10*3/uL MPV (9.5-12.2) fL Immature Gran % (Auto) % Neutrophils % % Lymphocytes % % Monocytes % % Eosinophils % % Basophils % % Immature Gran # (0.00-0.04) 10*3/uL Neutrophils # (1.80-7.70) 10*3/uL Lymphocytes # (0.90-5.00) 10*3/uL Monocytes # (0.20-1.00) 10*3/uL Eosinophils # (0.04-0.35) 10*3/uL Basophils # (0.00-0.10) 10*3/uL PT (10.0-12.5) sec INR (<1.2) APTT (22.0-30.0) sec D-Dimer (<0.60) mg/L FEU Sodium (137-145) mmol/L Potassium (3.5-5.1) mmol/L Chloride (98-107) mmol/L Carbon Dioxide (22-30) mmol/L Anion Gap mmol/L BUN (9-20) mg/dL Creatinine (0.66-1.25) mg/dL Est GFR (CKD-EPI)AfAm (>60 ml/min/1.73 sqM) Est GFR (CKD-EPI)NonAf (>60 ml/min/1.73 sqM) Glucose (74-99) mg/dL Calcium (8.4-10.2) mg/dL Magnesium (1.6-2.3) mg/dL Total Bilirubin (0.2-1.3) mg/dL AST (17-59) U/L ALT (4-49) U/L Alkaline Phosphatase (38-126) U/L Troponin I 0.046 H* (0.000-0.034) ng/mL Total Protein (6.3-8.2) g/dL Albumin (3.5-5.0) g/dL Amylase (30-110) U/L Lipase (23-300) U/L Disposition Clinical Impression: Unstable angina pectoris Disposition: ADMITTED IP TO THIS HOSP Is patient prescribed a controlled substance at d/c from ED?: No Referrals: Jason Worrell MD [Primary Care Provider] - 1-2 days Time of Disposition: 14:36
[2024-08-28 10:12] LABS: Basophils # (A) 0.07 10*3/uL (0.00-0.10); Eosinophils # (A) 0.29 10*3/uL (0.04-0.35); Eosinophils % (A) 4.1 %; HCT 41.1 % (39.6-50.0); HGB 14.5 g/dL (13.0-17.0); Lymphocytes % (A) 19.6 %; MCH 34.6 pg (27.0-32.0); MCHC 35.3 g/dL (32.0-37.0); MCV 98.1 fL (80.0-97.0); Monocytes # (A) 0.72 10*3/uL (0.20-1.00); Monocytes % (A) 10.1 %; Neutrophils # (A) 4.65 10*3/uL (1.80-7.70); Neutrophils % (A) 64.9 %; Platelet Count 259 10*3/uL (140-440); RBC 4.19 10*6/uL (4.40-5.60); RDW 13.3 % (11.5-14.5); WBC 7.15 10*3/uL (4.50-10.00)
[2024-08-28] MEDS: ASPIRIN 81 MG PO STA (10:13)
[2024-08-28] MEDS: NITROGLYCERIN OINT 1 INCH/GM PACKET TOPICAL STA (10:15)
[2024-08-28 10:26] LABS: ALT 18 U/L (4-49); AST 21 U/L (17-59); African American GFR (CKD) >90 (>60 ml/min/1.73 sqM); Albumin 4.1 g/dL (3.5-5.0); Alkaline Phosphatase 79 U/L (38-126); Amylase 64 U/L (30-110); Anion Gap 12 mmol/L; Blood Urea Nitrogen 18 mg/dL (9-20); Calcium 9.3 mg/dL (8.4-10.2); Carbon Dioxide 24 mmol/L (22-30); Chloride 103 mmol/L (98-107); Glucose 145 mg/dL (74-99); Lipase 161 U/L (23-300); Non-African American GFR(CKD) 89 (>60 ml/min/1.73 sqM); Potassium 4.4 mmol/L (3.5-5.1); Sodium 139 mmol/L (137-145); Total Bilirubin 0.6 mg/dL (0.2-1.3); Total Protein 7.1 g/dL (6.3-8.2)
[2024-08-28 10:31] LABS: Partial Thromboplastin Time 23.3 sec (22.0-30.0); Prothrombin Time 11.1 sec (10.0-12.5)
--- NOTE | 2024-08-28 11:43 | XR ---
EXAMINATION TYPE: XR chest 2V DATE OF EXAM: 08/28/2024 CLINICAL INDICATION: Male, 74 years old with history of Chest Pain, TECHNIQUE: Frontal and lateral views of the chest are obtained. COMPARISON: Chest x-ray January 22, 2014 FINDINGS: There is more prominent reticular increased markings bilaterally. Overlying sternal wires and mediastinal clips are redemonstrated. The cardiac silhouette size remains within normal limits. The osseous structures are intact. IMPRESSION: Suspect new mild to moderate interstitial edema versus parenchymal fibrosis. Correlate cl inically. Correlation with more recent radiographs would also be beneficial. [facility], , 08/28/2024 11:41 AM
--- NOTE | 2024-08-28 13:31 | CT ---
EXAMINATION TYPE: CT angio chest DATE OF EXAM: 08/28/2024 12:10 PM COMPARISON: None. CLINICAL INDICATION: Male, 74 years old with history of cp, Chest pain, hx cardiac stents, bypass, [place] , TECHNIQUE: CT of the chest is performed on a spiral scan at 2 mm thick sections. Study is performed with intravenous contrast timed for evaluation for pulmonary embolism. This will limit additional po rtions of the evaluation. 10mm MIP images reconstructed by the technologist are reviewed on the comp uter in the coronal and sagittal planes. Contrast used:100 mL of Isovue 370 with IV Contrast, (none if empty) Oral contrast used: (none if empty) CT DLP: 376.1 mGycm, Automated exposure control for dose reduction was used. FINDINGS: No persistent filling defects are evident to suggest an acute pulmonary embolism. No mediastinal or hilar adenopathy enlarged by CT criteria is evident. The ascending aorta diameter at the level of the main pulmonary artery is 4.2 cm. The main pulmonary artery diameter at the bifurcation is 3.2 cm. Increased density is through the bilateral lungs more so on the right. A couple of small focal densit ies are present measuring 0.6 and 0.5 cm in the right mid lung. Series 401 image 69. Additional bilat eral peripheral lung infiltrates present. Consider some pulmonary fibrosis within the differential. A telectasis and pulmonary edema could be considered Moderate coronary artery calcifications present. Limited CT sections were through the upper abdomen. Upper abdomen appears unremarkable. IMPRESSION: 1. Scattered peripheral infiltrates are nonspecific. There are couple of possible small nodules discu ssed above. Short-term follow-up lung findings is recommended in 6 months. [facility], , 08/28/2024 1:29 PM
[2024-08-28] MEDS ORDERED: NITROGLYCERIN SL TABS 0.4 MG TAB SUBLINGUAL PRN (14:37)
[2024-08-28] MEDS: HEPARIN SODIUM 1,000 UN/ML (10ML VL) IV ONE (15:07)
[2024-08-28] MEDS: HEPARIN SOD,PORK IN 0.45% NACL 25,000 UNIT in 0.45% NACL 1 250ML.BAG IV SCH (15:08)
[2024-08-28] MEDS ORDERED: NITROGLYCERIN SL PRN (15:26)
--- NOTE | 2024-08-28 16:04 | P.HPIM ---
History of Present Illness H&P Date: 08/28/24 History of Presenting Illness: Patient is a very pleasant 74-year-old male with a past medical history of CAD status post CABG x 4 (1993) followed by stenting x 3 with last stent placed approximately 10 years ago, hypertension, hyperlipidemia, paroxysmal atrial fibrillation on anticoagulation with Xarelto, and type II [id number] diabetes mellitus, and GERD. Patient reports he follows with hydrogenation operator Dr. Frey and is recently undergoing workup for acid reflux and is scheduled for an EGD with Dr. Arreola next week. Patient reports he has been experiencing intermittent chest pain over the past couple of weeks but reports yesterday he was overdoing it working in his garage and cleaning out his garage and working on his car and started having increased acid reflux and when he went to lie down last night he again began to feel that pressure-like feeling to his midsternal chest accompanied by indigestion but states indigestion and frequent eructations resolved but the pressure in his chest remained and was radiating down his left arm similar to his previous heart attacks. Patient reports his previous heart attacks all began with increased acid reflux/heartburn as well. Patient reports when the pain traveled to his arm he knew he had to come in for evaluation. He reports his chest pain and left arm pain improved after 2 doses of his liquid nitro spray that was prescribed by his hydrogenation operator and fully resolved shortly after Nitropaste was placed in the emergency department. On arrival to our facility, patient underwent evaluation in the emergency department. Vital signs upon arrival show blood pressure 164/82, heart rate 56, respiratory rate 18, temp 97.6 F, and SpO2 of 97% on room air. EKG was completed showing sinus bradycardia with a first-degree AV block with MA interval of 218 ms and a left bundle branch block (suspect left bundle branch block new as previous EKG available for review was completed 01/29/2014 showing only sinus bradycardia with no left bundle branch block). Chest x-ray completed showing mild to moderate interstitial edema. Labs completed and reviewed. CBC showing macrocytosis with MCV of 98.1 and MCH of 34.6. Coagulation profile showing elevated D-dimer of 1.15. BMP unremarkable. Blood glucose 145. Calcium 9.3. Magnesium 2.0. Liver profile unremarkable. Troponin was elevated at 0.046. CTA chest completed showing scattered peripheral infiltrates with possible small nodules/densities measuring 0.6 and 0.5 cm. Patient was given aspirin 324 mg p.o. x 1 dose, Nitropaste and started on IV heparin infusion for treatment of NSTEMI and admitted under services with consultation to cardiology. Review of systems: Pertinent positives and negatives as discussed in HPI, a complete review of systems was performed and all other systems are negative. Physical exam: Vital signs reviewed and stable. General: Nontoxic, no distress and appears stated age. Derm: Skin warm and dry, normal coloration for ethnicity. Head: Atraumatic, normocephalic and symmetric. Eyes: EOM's intact, no lid lag, and anicteric sclera Mouth: no lip lesions, mucus membranes moist Cardiovascular: regular rate and rhythm with normal S1S2, systolic murmur, positive posterior tibial pulses bilaterally, and cap refill < 2 seconds. Lungs: Respirations even, regular, and unlabored on room air. Lungs CTA bilaterally, no rhonchi, no rales, no wheezing, and no accessory muscle usage. Abdominal: soft, nontender to palpation, no guarding, no appreciable organomegaly Ext: ROM intact. No gross muscle atrophy, scant edema, no contractures Neuro: Speech clear, face symmetrical and CN II-XII grossly intact with no noted focal neuro deficits Psych: Alert and oriented to person, place, time, and situation. Appropriate and pleasant affect. Assessment and Plan of Care: NSTEMI Left bundle branch block, suspect new History of CAD status post CABG x 4 followed by stenting x 3 Hypertension Hyperlipidemia Paroxysmal atrial fibrillation -Cardiology consulted, appreciate recommendations -Continue low intensity heparin infusion with close monitoring of PTT every 6 hours for goal therapeutic range of 45 to 79 seconds. -Telemetry monitoring -Trend troponins -Cardiac diet, NPO at midnight -Hold metoprolol amiodarone secondary to new onset left bundle branch block, pending further recommendations from cardiology. -Patient to continue aspirin 81 mg daily, Zetia 10 mg daily, isosorbide mononitrate 120 mg daily, losartan 50 mg daily, and sublingual nitro every 5 minutes as needed for chest pain. -Echocardiogram to be completed. Type II [id number] diabetes mellitus Hold Ozempic and Synjardy and place patient on glycemic protocol with Humalog sliding scale. Follow-up on hemoglobin A1c. Data and imaging reviewed: As stated above in HPI. The patient is admitted with an anticipated greater than 2 midnight stay for e valuation of NSTEMI and new onset left bundle branch block CODE STATUS: Full code DVT prophylaxis: Heparin infusion Discussed with: Patient, RN, and ED physician. Anticipated discharge date: Pending clinical course e Anticipated discharge place: Home Patient was seen independently by Nurse Practitioner. This document was prepared using [employer] dictation software. Please allow for errors in van helper while rare they do occur. Carlos Medellin NP rendered care for this patient independently, reviewed the findings and plan as documented in the note above and agree with plan. I did not physically speak with or examine the patient on this date. Past Medical History Past Medical History: Coronary Artery Disease (CAD), Diabetes Mellitus, Hearing Disorder / Deafness, Hyperlipidemia, Hypertension, Myocardial Infarction (AL), Osteoarthritis (OA), Renal Disease Additional Past Medical History / Comment(s): 2001 mild AL. Hx of shingles with residual nerve pain in shoulder and chest. Hearing aid use.kidney stones, Last Myocardial Infarction Date:: 2001 History of Any Multi-Drug Resistant Organisms: None Reported Past Surgical History: Coronary Bypass/CABG, Heart Catheterization Additional Past Surgical History / Comment(s): 1993 quadruple bypass, cardioversion, heart catheterization X4-5, carpal tunnel surgery, cataract surg alfonso, pain procedures, bilateral carpal tunnel surgery, colonoscopy. Past Anesthesia/Blood Transfusion Reactions: No Reported Reaction Past Psychological History: No Psychological Hx Reported Smoking Status: Former smoker Past Alcohol Use History: None Reported Past Drug Use History: None Reported - Past Family History Mother Family Medical History: No Reported History Medications and Allergies Home Medications Medication Instructions Recorded Confirmed Type Aspirin EC [Ecotrin Low Dose] 81 mg PO HS 12/07/13 08/28/24 History Isosorbide Mononitrate [Imdur] 120 mg PO BID 12/07/13 08/28/24 History Nitroglycerin 0.4 mg SL Q5M PRN 01/27/14 08/28/24 History Rivaroxaban [Xarelto] 20 mg PO W/SUPPER 01/27/14 08/28/24 History Losartan [Cozaar] 50 mg PO DAILY 09/13/22 08/28/24 History Empagliflozin/Metformin HCl 2 tab PO DAILY 08/14/23 08/28/24 History [Synjardy 12.5-1,000 mg Tablet] HYDROcodone/APAP 7.5-325MG [[place] 1 tab PO TID PRN 30 Days #90 tab 07/02/24 08/28/24 Rx 7.5-325] Amiodarone [Cordarone] 100 mg PO DAILY 08/28/24 08/28/24 History Ezetimibe [Zetia] 10 mg PO DAILY 08/28/24 08/28/24 History Metoprolol Succinate [Metoprolol 25 mg PO DAILY 08/28/24 08/28/24 History Succinate ER] Omeprazole 20 mg PO DAILY 08/28/24 08/28/24 History Semaglutide [Ozempic] 0.5 mg SQ WE 08/28/24 08/28/24 History methocarbamoL [Robaxin] 750 mg PO TID PRN 08/28/24 08/28/24 History Allergies Allergy/AdvReac Type Severity Reaction Status Date / Time niacin Allergy Itching Verified 08/28/24 13:50 Physical Exam Vitals: Vital Signs Temp Pulse Resp BP Pulse Ox 08/28/24 15:11 56 L 19 169/91 98 08/28/24 12:29 56 L 18 153/84 98 08/28/24 10:10 59 L 16 95 08/28/24 09:26 97.6 F 56 L 18 164/82 97 Intake and Output 08/28/24 08/28/24 08/28/24 06:59 14:59 22:59 Other: Weight 76.204 kg Results CBC & Chem 7: 08/28/24 10:01 08/28/24 10:01 Labs: Abnormal Lab Results - Last 24 Hours (Table) 08/28/24 08/28/24 08/28/24 Range/Units 10:01 10:01 10:01 RBC 4.19 L (4.40-5.60) 10*6/uL MCV 98.1 H (80.0-97.0) fL MCH 34.6 H (27.0-32.0) pg MPV 9.0 L (9.5-12.2) fL D-Dimer 1.15 H (<0.60) mg/L FEU Glucose 145 H (74-99) mg/dL Troponin I (0.000-0.034) ng/mL 08/28/24 Range/Units 10:01 RBC (4.40-5.60) 10*6/uL MCV (80.0-97.0) fL MCH (27.0-32.0) pg MPV (9.5-12.2) fL D-Dimer (<0.60) mg/L FEU Glucose (74-99) mg/dL Troponin I 0.046 H* (0.000-0.034) ng/mL
[2024-08-28] MEDS: HYOSCYAMINE ELIXIR 250 MCG/10 ML BTL PO STA (16:56)
[2024-08-28] MEDS: LIDOCAINE VISCOUS 2% 15 ML CUP PO ONE (16:57)
[2024-08-28] MEDS: MAG HYDROX/AL HYDROX/SIMETH 30 ML CUP PO STA (16:57)
[2024-08-28] MEDS: NITROGLYCERIN OINT 1 INCH/GM PACKET TOPICAL SCH (17:22)
[2024-08-28] MEDS ORDERED: DEXTROSE 50% SYRINGE 50 ML IVP PRN ×2 (18:17)
[2024-08-28 18:58] LABS: Glucose,Whole Blood 154 mg/dL (70-110)
[2024-08-28] MEDS: ISOSORBIDE MONONITRATE ER 60 MG TAB.ER.24H PO SCH (20:49)
[2024-08-28] MEDS: ATORVASTATIN 40 MG TAB PO SCH (20:49)
[2024-08-28 20:51] LABS: Glucose,Whole Blood 147 mg/dL (70-110)
[2024-08-28] MEDS: INSULIN LISPRO (HumaLOG) 100 UNIT/ML 10 mL VL SQ SCH (20:52)
[2024-08-29] MEDS: HEPARIN SODIUM 1,000 UN/ML (10ML VL) IV PRN (00:05)
[2024-08-29] MEDS ORDERED: NITROGLYCERIN SL TABS 0.4 MG TAB SUBLINGUAL PRN ×2 (08:01→13:41)
[2024-08-29] MEDS ORDERED: ALPRAZolam 0.25 MG TAB PO PRN (08:01)
[2024-08-29] MEDS ORDERED: ALPRAZolam 0.5 MG TAB PO PRN (08:01)
[2024-08-29 08:03] LABS: Glucose,Whole Blood 127 mg/dL (70-110)
[2024-08-29 08:17] LABS: Basophils # (A) 0.05 X 10*3/uL (0.00-0.10); Basophils % (A) 0.6 %; Eosinophils # (A) 0.37 X 10*3/uL (0.04-0.35); Eosinophils % (A) 4.6 %; HCT 39.3 % (39.6-50.0); HGB 13.2 g/dL (13.0-17.0); Lymphocytes # (A) 1.99 X 10*3/uL (0.90-5.00); Lymphocytes % (A) 24.5 %; MCH 33.5 pg (27.0-32.0); MCHC 33.6 g/dL (32.0-37.0); MCV 99.7 FL (80.0-97.0); Mean Platelet Volume 9.6 FL (9.5-12.2); Monocytes % (A) 11.1 %; NRBC Per 100 WBC 0 X 10*3/uL (0.00-0.01); Neutrophils # (A) 4.78 X 10*3/uL (1.80-7.70); Platelet Count 257 X 10*3/uL (140-440); RBC 3.94 X 10*6/uL (4.40-5.60); RDW 13.5 % (11.5-14.5); WBC 8.11 X 10*3/uL (4.50-10.00)
[2024-08-29 08:30] LABS: ALT 16 U/L (10-49); AST 26 U/L (14-35); Albumin 3.9 g/dL (3.8-4.9); Alkaline Phosphatase 72 U/L (41-126); BUN/Creat Ratio 17.78 Ratio (12.00-20.00); Calcium 8.6 mg/dL (8.7-10.3); Carbon Dioxide 24.9 mmol/L (21.6-31.8); Chloride 106 mmol/L (96-109); Chol/HDL Ratio 3.19 Ratio; Globulin 2.3 g/dL (1.6-3.3); Glucose 114 mg/dL (70-110); LDL Cholesterol,Calculated 64.7 mg/dL (0.0-131.0); Magnesium 2.1 mg/dL (1.5-2.4); Potassium 4.6 mmol/L (3.5-5.5); Sodium 141 mmol/L (135-145); Total Bilirubin 0.4 mg/dL (0.3-1.2); Total Protein 6.2 g/dL (6.2-8.2); VLDL Calculation 15.64 mg/dL (5.00-40.00)
[2024-08-29] MEDS: ATORVASTATIN 80 MG TAB PO STA (08:51)
[2024-08-29] MEDS: ASPIRIN 325 MG TAB PO STA (08:51)
[2024-08-29] MEDS: LOSARTAN 50 MG TAB PO SCH (08:52)
[2024-08-29] MEDS: EZETIMIBE 10 MG TAB PO SCH (08:52)
[2024-08-29] MEDS: METOPROLOL SUCCINATE (ER) 25 MG TAB.ER.24H PO SCH (08:55)
[2024-08-29] MEDS ORDERED: ASPIRIN 325 MG TAB PO SCH (09:00)
[2024-08-29] MEDS: AMIODARONE 100 MG TAB PO SCH (09:43)
--- NOTE | 2024-08-29 09:56 | P.CRDCN ---
History of Present Illness History of present illness: HISTORY OF PRESENT ILLNESS: This is a 74-year-old male with a past medical history significant for coronary artery disease with previous CABG and subsequent stenting, hypertension, hyperl ipidemia, peripheral vascular disease, atrial fibrillation, and former nicotine dependence. Patient follows in the office with Dr. Frey. We have been asked to see the patient in consultation for non-STEMI. Patient examined at the bedside in the emergency room. Patient states he has been having chest pain for the past week. He describes the discomfort as a heaviness. He states the pain has been occurring when he has been out working in the garage. He states it is not related to any food intake. He does report that he has been having pain with swallowing recently and was started on omeprazole and is scheduled to have endoscopy next week. At the time of examination he denies any chest pain or pressure. Denies any shortness of breath. Patient was found to have elevated troponins and was started on IV heparin. DIAGNOSTICS: - EKG reveals sinus mechanism with left bundle branch block. - Chest xray suspect new mild to moderate interstitial edema versus parenchymal fibrosis. - Chest CTA: Scattered peripheral infiltrates are nonspecific. Couple of possible small nodules. - Laboratory data: WBC 8.11. Hemoglobin 13.2. Platelet count 257. Sodium 141. Potassium 4.6. BUN 16. Creatinine 0.9. Troponin 0.046. 0.318. 0.718 - Current home cardiac medications include Zetia 10 mg daily, amiodarone 100 mg daily, Xarelto 20 mg with dinner, metoprolol succinate 25 mg daily, losartan 50 mg daily, Imdur 120 mg twice a day, aspirin 81 mg daily. - Most recent echocardiogram obtained in January 2024 revealed ejection fraction 37%, mild TR, mild AR, mild to moderate MR -Patient underwent Lexiscan stress test in November 2022 revealing fixed inferior wall defect. - Cardiac catheterization history: 2013 revealing EF 45%, 2 patent grafts, patent WAGNER to LAD and patent VG to RCA. 100% VG to OM 2. FFR LAD 0.83. REVIEW OF SYSTEMS: At the time of my exam: CONSTITUTIONAL: Denies fever or chills. HEENT: Denies blurred vision, vision changes, or eye pain. Denies hemoptysis CARDIOVASCULAR: Denies chest pain. Denies orthopnea. Denies PND. Denies palpitations RESPIRATORY: Denies shortness of breath. GASTROINTESTINAL: Denies abdominal pain. Denies nausea or vomiting. HEMATOLOGIC: Denies bleeding disorders. GENITOURINARY: Denies any blood in urine. SKIN: Denies pruitis. Denies rash. PHYSICAL EXAM: VITAL SIGNS: Reviewed. GENERAL: Well-developed in no acute distress. HEENT: Head is normocephalic. Pupils are equal, round. Sclerae anicteric. Mucous membranes of the mouth are moist. Neck supple. No JVD or thyromegaly LUNGS: Respirations even and unlabored. Lungs essentially clear to auscultation bilaterally. HEART: Regular rate and rhythm. S1 and S2 heard. ABDOMEN: Soft. Nondistended. Nontender. EXTREMITIES: Normal range of motion. No clubbing or cyanosis. Peripheral pulses intact. No lower extremity edema NEUROLOGIC: Awake and alert. Oriented x 3. ASSESSMENT: Non-STEMI Coronary artery disease with previous four-vessel CABG in 1993 with subsequent stenting Ischemic cardiomyopathy, ejection fraction 37% Known left bundle branch block Paroxysmal atrial fibrillation, on Xarelto outpatient Hypertension Hyperlipidemia Peripheral vascular disease Former nicotine dependence History of dysphagia, scheduled for outpatient endoscopy PLAN: Continue IV heparin. Hold Xarelto. Resume home cardiac medication as listed above Patient to undergo cardiac catheterization today with Dr. Frey Further recommendations pending patient course Nurse practitioner note has been reviewed by physician. Signing provider agrees with the documented findings, assessment, and plan of care documented by REAL ESTATE TRANSACTION COORDINATOR as a scribe. Past Medical History Past Medical History: Coronary Artery Disease (CAD), Diabetes Mellitus, Hearing Disorder / Deafness, Hyperlipidemia, Hypertension, Myocardial Infarction ([place]), Osteoarthritis (OA), Renal Disease Additional Past Medical History / Comment(s): 2001 mild [place]. Hx of shingles with residual nerve pain in shoulder and chest. Hearing aid use.kidney stones, Last Myocardial Infarction Date:: 2001 History of Any Multi-Drug Resistant Organisms: None Reported Past Surgical History: Coronary Bypass/CABG, Heart Catheterization Additional Past Surgical History / Comment(s): 1993 quadruple bypass, cardioversion, heart catheterization X4-5, carpal tunnel surgery, cataract surgery, pain procedures, bilateral carpal tunnel surgery, colonoscopy. Past Anesthesia/Blood Transfusion Reactions: No Reported Reaction Past Psychological History: No Psychological Hx Reported Smoking Status: Former smoker Past Alcohol Use History: None Reported Past Drug Use History: None Reported - Past Family History Mother Family Medical History: No Reported History Medications and Allergies Home Medications Medication Instructions Recorded Confirmed Type Aspirin EC [Ecotrin Low Dose] 81 mg PO HS 12/07/13 08/28/24 History Isosorbide Mononitrate [Imdur] 120 mg PO BID 12/07/13 08/28/24 History Nitroglycerin 0.4 mg SL Q5M PRN 01/27/14 08/28/24 History Rivaroxaban [Xarelto] 20 mg PO W/SUPPER 01/27/14 08/28/24 History Losartan [Cozaar] 50 mg PO DAILY 09/13/22 08/28/24 History Empagliflozin/Metformin HCl 2 tab PO DAILY 08/14/23 08/28/24 History [Synjardy 12.5-1,000 mg Tablet] HYDROcodone/APAP 7.5-325MG [[place] 1 tab PO TID PRN 30 Days #90 tab 07/02/24 08/28/24 Rx 7.5-325] Amiodarone [Cordarone] 100 mg PO DAILY 08/28/24 08/28/24 History Ezetimibe [Zetia] 10 mg PO DAILY 08/28/24 08/28/24 History Metoprolol Succinate [Metoprolol 25 mg PO DAILY 08/28/24 08/28/24 History Succinate ER] Omeprazole 20 mg PO DAILY 08/28/24 08/28/24 History Semaglutide [Ozempic] 0.5 mg SQ WE 08/28/24 08/28/24 History methocarbamoL [Robaxin] 750 mg PO TID PRN 08/28/24 08/28/24 History Allergies Allergy/AdvReac Type Severity Reaction Status Date / Time niacin Allergy Itching Verified 08/28/24 13:50 Physical Exam Vitals: Vital Signs Pulse Resp BP Pulse Ox 08/29/24 09:00 58 L 20 135/74 96 08/29/24 06:34 63 18 151/73 97 08/29/24 03:30 64 18 117/57 96 08/29/24 00:02 66 18 126/86 95 08/28/24 18:54 62 19 145/63 95 08/28/24 16:52 58 L 17 96 08/28/24 15:11 56 L 19 169/91 98 08/28/24 12:29 56 L 18 153/84 98 08/28/24 10:10 59 L 16 95 Intake and Output 08/28/24 08/29/24 08/29/24 22:59 06:59 14:59 Intake Total 81.991 Balance 81.991 Intake: Intake, IV Titration 81.991 Amount Heparin Sod,Pork in 0.45% 81.991 NaCl 25,000 unit In 0.45 % NaCl 1 250ml.bag @ 12 UNITS/KG/HR 9.144 mls/hr IV .Q24H [facility] Rx#: [id number] Results 08/29/24 04:46 08/29/24 04:46 Cardiac Enzymes 08/28/24 08/28/24 08/28/24 Range/Units 10:01 10:01 15:11 AST 21 (17-59) U/L Troponin I 0.046 H* 0.318 H* (0.000-0.034) ng/mL 08/28/24 08/29/24 Range/Units 20:33 04:46 AST 26 (17-59) U/L Troponin I 0.718 H* (0.000-0.034) ng/mL Coagulation 08/28/24 08/28/24 08/29/24 Range/Units 10:01 20:33 04:46 PT 11.1 (10.0-12.5) sec APTT 23.3 33.6 H 41.8 H (22.0-30.0) sec Lipids 08/29/24 Range/Units 04:46 Triglycerides 78.20 (0.00-149.00) mg/dL Cholesterol 117.00 (0.00-200.00) mg/dL HDL Cholesterol 36.70 L (40.00-60.00) mg/dL Cholesterol/HDL Ratio 3.19 Ratio CBC 08/28/24 08/29/24 Range/Units 10:01 04:46 WBC 7.15 8.11 (4.50-10.00) 10*3/uL RBC 4.19 L 3.94 L (4.40-5.60) 10*6/uL Hgb 14.5 13.2 (13.0-17.0) g/dL Hct 41.1 39.3 L (39.6-50.0) % Plt Count 259 257 (140-440) 10*3/uL Comprehensive Metabolic Panel 08/28/24 08/29/24 Range/Units 10:01 04:46 Sodium 139 141 (137-145) mmol/L Potassium 4.4 4.6 (3.5-5.1) mmol/L Chloride 103 106 (98-107) mmol/L Carbon Dioxide 24 24.9 (22-30) mmol/L BUN 18 16.0 (9-20) mg/dL Creatinine 0.77 0.9 (0.66-1.25) mg/dL Glucose 145 H 114 H (74-99) mg/dL Calcium 9.3 8.6 L (8.4-10.2) mg/dL AST 21 26 (17-59) U/L ALT 18 16 (4-49) U/L Alkaline Phosphatase 79 72 (38-126) U/L Total Protein 7.1 6.2 (6.3-8.2) g/dL Albumin 4.1 3.9 (3.5-5.0) g/dL Current Medications Generic Name Dose Route Start Last Admin Trade Name Freq PRN Reason Stop Dose Admin Alprazolam 0.25 mg 08/29/24 08:01 Alprazolam 0.25 Mg Tab PO Q6HR PRN Mild Anxiety Alprazolam 0.5 mg 08/29/24 08:01 Alprazolam 0.5 Mg Tab PO Q6HR PRN Moderate Anxiety Amiodarone HCl 100 mg 08/29/24 09:00 Amiodarone 100 Mg Tab PO DAILY BETTE Aspirin 81 mg 08/29/24 21:00 Aspirin 81 Mg PO HS BETTE Atorvastatin Calcium 40 mg 08/28/24 21:00 08/28/24 20:49 Atorvastatin 40 Mg Tab PO 40 mg HS BETTE Administration Dextrose/Water 25 ml 08/28/24 18:17 Dextrose 50% Syringe 50 Ml IVP PER PROTOCOL PRN Hypoglycemia Protocol Dextrose/Water 50 ml 08/28/24 18:17 Dextrose 50% Syringe 50 Ml IVP PER PROTOCOL PRN Hypoglycemia Protocol Ezetimibe 10 mg 08/29/24 09:00 08/29/24 08:52 Ezetimibe 10 Mg Tab PO 10 mg DAILY BETTE Administration Heparin Sodium (Porcine) 0 unit 08/28/24 23:44 08/29/24 00:05 Heparin Sodium 1,000 Un/Ml (10ml Vl) IV 1,905 unit PER PROTOCOL PRN Administration Low PTT Protocol Heparin Sodium/Sodium Chloride 250 mls @ 9.144 mls/hr 08/28/24 14:45 08/29/24 00:06 25,000 unit/ Sodium Chloride IV 14 units/kg/hr .Q24H BETTE 10.669 mls/hr Titration Protocol 12 UNITS/KG/HR Heparin Sodium (Porcine) 10, 1,001 mls @ 999 mls/hr 08/30/24 07:00 000 unit/ Sodium Chloride IRRIGATION 08/30/24 23:00 ONCE PRN INTRA-OP Heparin Sodium (Porcine) 2,500 250.5 mls @ 250 mls/hr 08/30/24 07:00 unit/ Sodium Chloride IRRIGATION 08/30/24 23:00 ONCE PRN INTRA-OP Insulin Human Lispro 0 unit 08/28/24 21:00 08/29/24 08:40 Insulin Lispro (Humalog) 100 Unit/Ml 10 Ml Vl SQ Not Given ACHS [facility] Protocol Isosorbide Mononitrate 120 mg 08/28/24 21:00 08/29/24 08:51 Isosorbide Mononitrate Er 60 Mg Tab.Er.24h PO 120 mg BID BETTE Administration Losartan Potassium 50 mg 08/29/24 09:00 08/29/24 08:52 Losartan 50 Mg Tab PO 50 mg DAILY BETTE Administration Metoprolol Succinate 25 mg 08/29/24 09:00 08/29/24 08:55 Metoprolol Succinate (Er) 25 Mg Tab.Er.24h PO 25 mg DAILY BETTE Administration Nitroglycerin 0.4 mg 08/28/24 14:37 Nitroglycerin Sl Tabs 0.4 Mg Tab SUBLINGUAL Q5M PRN Chest Pain Intake and Output 08/28/24 08/29/24 08/29/24 22:59 06:59 14:59 Intake Total 81.991 Balance 81.991 Intake: Intake, IV Titration 81.991 Amount Heparin Sod,Pork in 0.45% 81.991 NaCl 25,000 unit In 0.45 % NaCl 1 250ml.bag @ 12 UNITS/KG/HR 9.144 mls/hr IV .Q24H [facility] Rx#: [id number] 08/29/24 04:46 08/29/24 04:46
[2024-08-29] MEDS: IV FLUID CONTINUATION 1,000 ML IV ONE (11:45)
[2024-08-29] MEDS: fentaNYL (PF) 50 MCG/ML 2 ML AMP IVP ONE (12:20)
[2024-08-29] MEDS: MIDAZOLAM 2 MG/2 ML VIAL IVP ONE (12:20)
[2024-08-29] MEDS: LIDOCAINE 1% INJ 10MG/ML (20 ML MDV) SQ ONE (12:22)
[2024-08-29] MEDS: VERAPAMIL SYRINGE (5 MG/10 ML) INTRAARTER ONE (12:23)
[2024-08-29] MEDS: HEPARIN SODIUM 1,000 UN/ML (10ML VL) IVP ONE (12:31)
[2024-08-29] MEDS: HEPARIN SODIUM (1,000 UNIT/ML) 1,000 UNIT in SODIUM CHLORIDE 0.9% 1,000 ML IRRIGATION ONE (12:32)
[2024-08-29] MEDS: HEPARIN SODIUM,PORCINE (1 ML) 2,500 UNIT in SODIUM CHLORIDE 0.9% 250 ML IRRIGATION ONE (12:32)
[2024-08-29] MEDS: IOPAMIDOL-370 100ML BTL INJ ONE ×3 (12:53→13:26)
[2024-08-29] MEDS: CLOPIDOGREL 75 MG TAB PO ONE (13:00)
[2024-08-29] MEDS: NITROGLYCERIN 1000MCG/10ML SYRINGE INTRACORON ONE (13:12)
[2024-08-29] MEDS ORDERED: RX INFO: IV CONTRAST WAS GIVEN 1 EACH MISC MISCELLANE PRN (13:41)
[2024-08-29] MEDS ORDERED: ATROPINE SULFATE 0.1 MG/ML 10ML SYRINGE IV PRN (13:41)
[2024-08-29] MEDS ORDERED: ZOLPIDEM 5 MG TAB PO PRN (13:41)
--- NOTE | 2024-08-29 13:52 | P.CARDCATH ---
Date of Procedure: 08/29/24 Description of Procedure: Cardiac Catheterization: The patient is a 74-year-old male with a known history of CABG 30 years ago known history of PCI, paroxysmal atrial fibrillation who presented with symptoms of chest discomfort and evidence of non-STEMI. Recommendations were made regarding cardiac catheterization, the risks and the complications were discussed with the patient who is in full understanding and agreement. Procedure Description: Patient was brought to prosthetics lab technician in fasting semi-sedated state after receiving Fentanyl and Benadryl achieiving moderate conscious sedated state. Using Xylocaine Anesthesia and modified Seldinger technique, a 6-Irish sheath was introduced in the left radial artery . Subsequently, selective coronary angiography was performed using a 5-Irish 4 bend Scarlett catheter. Multiple views of the coronary artery including hemiaxial views were obtained. The right Scarlett catheter was used to cannulate the WAGNER to the LAD. A 6 Irish RCB catheter was used to cannulate the SVG to the RCA. Images of the graft were obtained. PCI: After removing the catheters a 6 Irish CLS 3.5 guiding catheter was introduced and after cannulating the left main a 0.014 BMW J-wire was positioned in the diagonal branch. Subsequently a 3.0 x 12 mm NC trek balloon was advanced and 1 inflation at 10 liv was done. After removing the balloon a SwingTime eye IVUS catheter was introduced and images were obtained and revealed a distal lumen between 4.0 and 4.5 mm with calcification. Subsequently a 4.0 x 15 mm Xience Skypoint stent was advanced and deployed at 16 liv. After removing the balloon repeat IVUS imaging was obtained and revealed under deployment in the mid segment of the lesion with a lumen of 4.5 mm. At that point a 4.5 x 8 mm NC trek balloon was advanced and 2 inflation at 10 liv were done. After the last inflation the wire was removed and images were obtained and revealed stable successful stenting. Following that, catheter and sheath were removed. Hemostasis was obtained with deployment of vascular band . There was no immediate complication. Patient was returned to room in stable condition. Of note, the patient received a total of 10,000 units of intravenous heparin as well as intra-arterial verapamil. He received an oral loading dose of c lopidogrel. His ACT was followed. He had chest discomfort that improved at the end of the procedure. Findings: Fluoroscopy: Calcification of the coronary arteries was noted Left main: This is a short size vessel, bifurcating into LAD and left circumflex, left main has no obstructive disease. LAD: This vessel has proximally an eccentric 90% stenosis before the takeoff of 2 large diagonal branch. The LAD is subtotally occluded with no significant antegrade flow. The first diagonal branch has an 80% stenosis in the midsegment. Left circumflex: This vessel is totally occluded proximally with no significant antegrade flow RCA: This vessel is totally occluded proximally with no significant antegrade flow WAGNER to the LAD: The distal anastomotic site is patent the flow into the LAD is brisk the vessel is diffusely diseased SVG to the RCA: The proximal and distal anastomotic site are patent the flow to the PDA is brisk with no significant obstructive disease Left Ventriculogram: Not performed Conclusion: 1. Severe stenosis in the ostium of the RCA with significant progression since 2013 2. Severe triple-vessel disease 3. Patent WAGNER to the LAD with diffuse disease in the LAD 4. Patent SVG to the RCA with known occluded SVG to the OM 1 and distal left circumflex OM 5. Successful stenting of the ostium of the LAD with reduction of stenosis from 90% to less than 5% with IVUS imaging and BUCK-3 flow. Recommendations: The patient will continue on aspirin and clopidogrel in addition to Xarelto. The aspirin will be stopped in 1 week and continue on clopidogrel and Xarelto f or 1 year in addition to aggressive coronary risks modification, maintaining LDL less than 70 mg/dL. The findings and the recommendations were discussed with the patient and the family and they were in full understanding and agreement. Duration of sedation is 68 minutes.
--- NOTE | 2024-08-29 16:47 | P.PN ---
Subjective Progress Note Date: 08/29/24 Hospital Course: Patient is a very pleasant 74-year-old male with a past medical history of CAD status post CABG x 4 (1993) followed by stenting x 3 with last stent placed approximately 10 years ago, hypertension, hyperlipidemia, paroxysmal atrial fibrillation on anticoagulation with Xarelto, and type II [id number] diabetes mellitus, and GERD. Patient reports he follows with freight unloader Dr. Frey and is recently undergoing workup for acid reflux and is scheduled for an EGD with Dr. Arreola next week. Patient reports he has been experiencing intermittent chest pain over the past couple of weeks but reports yesterday he was overdoing it working in his garage and cleaning out his garage and working on his car and started having increased acid reflux and when he went to lie down last night he again began to feel that pressure-like feeling to his midsternal chest accompanied by indigestion but states indigestion and frequent eructations resolved but the pressure in his chest remained and was radiating down his left arm similar to his previous heart attacks. Patient reports his previous heart attacks all began with increased acid reflux/heartburn as well. Patient reports when the pain traveled to his arm he knew he had to come in for evaluation. He reports his chest pain and left arm pain improved after 2 doses of his liquid nitro spray that was prescribed by his freight unloader and fully resolved shortly after Nitropaste was placed in the emergency department. On arrival to our facility, patient underwent evaluation in the emergency department. Vital signs upon arrival show blood pressure 164/82, heart rate 56, respiratory rate 18, temp 97.6 F, and SpO2 of 97% on room air. EKG was completed showing sinus bradycardia with a first-degree AV block with SC interval of 218 ms and a left bundle branch block (suspect left bundle branch block new as previous EKG availa ble for review was completed 01/29/2014 showing only sinus bradycardia with no left bundle branch block). Chest x-ray completed showing mild to moderate interstitial edema. Labs completed and reviewed. CBC showing macrocytosis with MCV of 98.1 and MCH of 34.6. Coagulation profile showing elevated D-dimer of 1.15. BMP unremarkable. Blood glucose 145. Calcium 9.3. Magnesium 2.0. Liver profile unremarkable. Troponin was elevated at 0.046. CTA chest completed showing scattered peripheral infiltrates with possible small nodules/densities measuring 0.6 and 0.5 cm. Patient was given aspirin 324 mg p.o. x 1 dose, Nitropaste and started on IV heparin infusion for treatment of NSTEMI and admitted under services with consultation to cardiology. Troponins trended resulting at 0.046, 0.318, and 0.718. Repeat morning EKG again showing sinus bradycardia with a first-degree AV block with SC interval of 227 ms and a left bundle branch block. Physical exam: Patient was seen and fully evaluated at bedside this morning. He reports currently chest pain is resolved but reports he did have this morning when he ambulated to the restroom. He states it again went away with use of his nitro spray. Denies having any headache, lightheadedness, dizziness, or any other complaints at this time. He is awaiting to be taken down for cardiac catheterization later today. Vital signs reviewed and stable. General: Nontoxic, no distress and appears stated age. Derm: Skin warm and dry, normal coloration for ethnicity. Head: Atraumatic, normocephalic and symmetric. Eyes: EOM's intact, no lid lag, and anicteric sclera Mouth: no lip lesions, mucus membranes moist Cardiovascular: regular rate and rhythm with normal S1S2, systolic murmur, positive posterior tibial pulses bilaterally, and cap refill < 2 seconds. Lungs: Respirations even, regular, and unlabored on room air. Lungs CTA bila terally, no rhonchi, no rales, no wheezing, and no accessory muscle usage. Abdominal: soft, nontender to palpation, no guarding, no appreciable organomegaly Ext: ROM intact. No gross muscle atrophy, scant edema, no contractures Neuro: Speech clear, face symmetrical and CN II-XII grossly intact with no noted focal neuro deficits Psych: Alert and oriented to person, place, time, and situation. Appropriate and pleasant affect. Assessment and Plan of Care: NSTEMI Left bundle branch block, suspect new History of CAD status post CABG x 4 followed by stenting x 3 Hypertension Hyperlipidemia Paroxysmal atrial fibrillation -Cardiology following, patient is scheduled undergo cardiac cath later today. -Continue low intensity heparin infusion with close monitoring of PTT every 6 hours for goal therapeutic range of 45 to 79 seconds. PTT currently subtherapeutic at 41.8 seconds -Telemetry monitoring -Troponins trended resulting at 0.046, 0.318, and 0.718. Repeat morning EKG again showing sinus bradycardia with a first-degree AV block with SC interval of 227 ms and a left bundle branch block. -Hold metoprolol amiodarone secondary to new onset left bundle branch block, pending further recommendations from cardiology. -Patient to continue aspirin 81 mg daily, Zetia 10 mg daily, isosorbide mononitrate 120 mg daily, losartan 50 mg daily, and sublingual nitro every 5 minutes as needed for chest pain. -Echocardiogram to be completed. Type II [id number] diabetes mellitus Hold Ozempic and Synjardy and place patient on glycemic protocol with Humalog sliding scale. Follow-up on hemoglobin A1c. Data and imaging reviewed: Vital signs reviewed. Blood pressure 135/74, heart rate 58, respiratory rate 20, and SpO2 of 96% on room air Morning labs reviewed. CBC showing macrocytosis with MCV of 99.7 and MCH of 33.5. PTT subtherapeutic at 41.8. BMP unremarkable. Blood glucose 114. Hemoglobin A1c 6.9%. Magnesium 2.1. Lipid profile showing a low HDL of 36.70. Troponins trended resulting at 0.046, 0.318, and 0.718. Repeat morning EKG again showing sinus bradycardia with a first-degree AV block with SC interval of 227 ms and a left bundle branch block. CODE STATUS: Full code DVT prophylaxis: Heparin infusion Anticipated discharge date: Pending clinical course Anticipated discharge place: Home Patient was seen independently by Nurse Practitioner. This document was prepared using [employer] dictation software. Please allow for errors in patient accounts coordinator while rare they do occur. Carlos Medellin NP rendered care for this patient independently, reviewed the find ings and plan as documented in the note above and agree with plan. I did not physically speak with or examine the patient on this date. Objective - Vital Signs Vital signs: Vital Signs Temp 97.6 F 08/28/24 09:26 Pulse 63 08/29/24 06:34 Resp 18 08/29/24 06:34 BP 151/73 08/29/24 06:34 Pulse Ox 97 08/29/24 06:34 FiO2 Intake & Output 08/28/24 08/29/24 08/29/24 18:59 06:59 18:59 Intake Total 81.991 Balance 81.991 Weight 76.204 kg Intake: Intake, IV Titration 81.991 Amount Heparin Sod,Pork in 0.45% 81.991 NaCl 25,000 unit In 0.45 % NaCl 1 250ml.bag @ 12 UNITS/KG/HR 9.144 mls/hr IV .Q24H [facility] Rx#: [id number] - Labs CBC & Chem 7: 08/29/24 04:46 08/29/24 04:46 Labs: Abnormal Lab Results - Last 24 Hours (Table) 08/28/24 08/28/24 08/28/24 Range/Units 10:01 10:01 10:01 RBC 4.19 L (4.40-5.60) 10*6/uL Hct (39.6-50.0) % MCV 98.1 H (80.0-97.0) fL MCH 34.6 H (27.0-32.0) pg MPV 9.0 L (9.5-12.2) fL Eosinophils # (0.04-0.35) X 10*3/uL APTT (22.0-30.0) sec D-Dimer 1.15 H (<0.60) mg/L FEU Glucose 145 H (74-99) mg/dL POC Glucose (mg/dL) (70-110) mg/dL Hemoglobin A1c (<=6.0) % Calcium (8.7-10.3) mg/dL Troponin I (0.000-0.034) ng/mL HDL Cholesterol (40.00-60.00) mg/dL 08/28/24 08/28/24 08/28/24 Range/Units 10:01 15:11 18:56 RBC (4.40-5.60) 10*6/uL Hct (39.6-50.0) % MCV (80.0-97.0) fL MCH (27.0-32.0) pg MPV (9.5-12.2) fL Eosinophils # (0.04-0.35) X 10*3/uL APTT (22.0-30.0) sec D-Dimer (<0.60) mg/L FEU Glucose (74-99) mg/dL POC Glucose (mg/dL) 154 H (70-110) mg/dL Hemoglobin A1c (<=6.0) % Calcium (8.7-10.3) mg/dL Troponin I 0.046 H* 0.318 H* (0.000-0.034) ng/mL HDL Cholesterol (40.00-60.00) mg/dL 08/28/24 08/28/24 08/28/24 Range/Units 20:33 20:33 20:50 RBC (4.40-5.60) 10*6/uL Hct (39.6-50.0) % MCV (80.0-97.0) fL MCH (27.0-32.0) pg MPV (9.5-12.2) fL Eosinophils # (0.04-0.35) X 10*3/uL APTT 33.6 H (22.0-30.0) sec D-Dimer (<0.60) mg/L FEU Glucose (74-99) mg/dL POC Glucose (mg/dL) 147 H (70-110) mg/dL Hemoglobin A1c (<=6.0) % Calcium (8.7-10.3) mg/dL Troponin I 0.718 H* (0.000-0.034) ng/mL HDL Cholesterol (40.00-60.00) mg/dL 08/29/24 08/29/24 08/29/24 Range/Units 04:46 04:46 04:46 RBC 3.94 L (4.40-5.60) 10*6/uL Hct 39.3 L (39.6-50.0) % MCV 99.7 H (80.0-97.0) fL MCH 33.5 H (27.0-32.0) pg MPV (9.5-12.2) fL Eosinophils # 0.37 H (0.04-0.35) X 10*3/uL APTT (22.0-30.0) sec D-Dimer (<0.60) mg/L FEU Glucose 114 H (74-99) mg/dL POC Glucose (mg/dL) (70-110) mg/dL Hemoglobin A1c 6.9 H (<=6.0) % Calcium 8.6 L (8.7-10.3) mg/dL Troponin I (0.000-0.034) ng/mL HDL Cholesterol 36.70 L (40.00-60.00) mg/dL 08/29/24 08/29/24 Range/Units 04:46 08:02 RBC (4.40-5.60) 10*6/uL Hct (39.6-50.0) % MCV (80.0-97.0) fL MCH (27.0-32.0) pg MPV (9.5-12.2) fL Eosinophils # (0.04-0.35) X 10*3/uL APTT 41.8 H (22.0-30.0) sec D-Dimer (<0.60) mg/L FEU Glucose (74-99) mg/dL POC Glucose (mg/dL) 127 H (70-110) mg/dL Hemoglobin A1c (<=6.0) % Calcium (8.7-10.3) mg/dL Troponin I (0.000-0.034) ng/mL HDL Cholesterol (40.00-60.00) mg/dL
[2024-08-29] MEDS: SODIUM CHLORIDE 0.9% 1,000 ML in EMPTY BAG 1 BAG IV SCH (16:58)
[2024-08-29] MEDS: MAG HYDROX/AL HYDROX/SIMETH 30 ML CUP PO PRN (17:02)
--- NOTE | 2024-08-29 17:42 | CA ---
Transthoracic Echo Report Name: Mark Peters Age: 74 Gender: M : 1950 Exam Date: 08/29/2024 14:22 Exam Location: [facility] Ht (in): 71 Wt (lb): 168 Ordering Physician: Carlos Medellin Attending/Referring Phys: Foreign Exchange Trader Terrence Tobias RDCS Procedure CPT: Indications: NSTEMI, new onset LBBB, Cardiac Hx: Technical Quality: Good Contrast 1: Total Dose (mL): Contrast 2: Total Dose (mL): MEASUREMENTS (Male / Female) Normal Values 2D ECHO LV Diastolic Diameter PLAX 5.4 cm 4.2 - 5.9 / 3.9 - 5.3 cm LV Systolic Diameter PLAX 4.3 cm IVS Diastolic Thickness 1.2 cm 0.6 - 1.0 / 0.6 - 0.9 cm LVPW Diastolic Thickness 1.1 cm 0.6 - 1.0 / 0.6 - 0.9 cm LV Relative Wall Thickness 0.4 RV Internal Dim ED PLAX 3.5 cm LVOT Diameter 2.1 cm LA Systolic Diameter LX 4.4 cm 3.0 - 4.0 / 2.7 - 3.8 cm LA Volume 120.9 cm??? 18 - 58 / 22 - 52 cm??? LA Volume Index 61.8 cm???/m??? 16 - 28 cm???/m??? DOPPLER MV Area PHT 2.4 cm??? Mitral E Point Velocity 52.8 cm/s Mitral A Point Velocity 88.2 cm/s Mitral E to A Ratio 0.6 MV Deceleration Time 320.6 ms TR Peak Velocity 265.3 cm/s TR Peak Gradient 28.2 mmHg FINDINGS Left Ventricle Left ventricular ejection fraction is estimated at 45%. Inferior and inferolateral wall hypokinesia. Mild concentric left ventricular hypertrophy. Right Ventricle Normal right ventricular size and function. Unable to estimate the right ventricular systolic pressure. Right Atrium Normal right atrial size. Left Atrium Mildly increased left atrial diameter. Severely increased left atrial volume. Moderately increased left atrial area. Mitral Valve Mitral annular calcification. No mitral stenosis. Mild mitral regurgitation. Aortic Valve Trileaflet aortic valve. Aortic valve sclerosis. No aortic stenosis. Trace aortic regurgitation. Tricuspid Valve Structurally normal tricuspid valve. No tricuspid stenosis. Mild tricuspid regurgitation. Pulmonic Valve Structurally normal pulmonic valve. No pulmonic stenosis. Trace pulmonic regurgitation. Pericardium No pericardial effusion. Aorta Normal size aortic root and proximal ascending aorta. CONCLUSIONS LVEF 45%-50% Inferior and inferolateral wall hypokinesia Mild concentric LVH. Mildly reduced global LV systolic function Normal RV size and systolic function Mild left atrial dilatation Mild MR, mild TR Previewed by: Dr Osei Dodge (Electronically Signed) Final Date: 29 August 2024 17:41
[2024-08-29 18:10] LABS: Glucose,Whole Blood 235 mg/dL (70-110)
[2024-08-29 20:16] LABS: Glucose,Whole Blood 209 mg/dL (70-110)
[2024-08-29] MEDS: ASPIRIN 81 MG PO SCH (20:56)
[2024-08-30 04:36] VITALS: PULSE 54
[2024-08-30 06:32] LABS: Glucose,Whole Blood 132 mg/dL (70-110)
[2024-08-30] MEDS ORDERED: HEPARIN SODIUM,PORCINE (1 ML) 2,500 UNIT in SODIUM CHLORIDE 0.9% 250 ML IRRIGATION PRN (07:00)
[2024-08-30] MEDS ORDERED: HEPARIN SODIUM,PORCINE 10,000 UNIT in SODIUM CHLORIDE 0.9% 1,000 ML IRRIGATION PRN (07:00)
[2024-08-30 07:57] VITALS: BP 137/67; RESP 16; TEMP 97.8
[2024-08-30 08:07] LABS: Mean Platelet Volume 9.3 fL (9.5-12.2); Platelet Count 245 10*3/uL (140-440)
[2024-08-30 08:20] LABS: African American GFR (CKD) >90 (>60 ml/min/1.73 sqM); Anion Gap 8 mmol/L; Blood Urea Nitrogen 11 mg/dL (9-20); Calcium 8.6 mg/dL (8.4-10.2); Carbon Dioxide 24 mmol/L (22-30); Chloride 106 mmol/L (98-107); Glucose 137 mg/dL (74-99); Non-African American GFR(CKD) 89 (>60 ml/min/1.73 sqM); Potassium 4.3 mmol/L (3.5-5.1); Sodium 138 mmol/L (137-145)
[2024-08-30] MEDS: CLOPIDOGREL 75 MG TAB PO SCH (08:58)
[2024-08-30] MEDS: ISOSORBIDE MONONITRATE ER 60 MG TAB.ER.24H PO SCH (08:59)
[2024-08-30 12:06] LABS: Glucose,Whole Blood 185 mg/dL (70-110)
--- NOTE | 2024-08-30 13:14 | P.PN ---
Subjective Progress Note Date: 08/30/24 HISTORY OF PRESENT ILLNESS: This is a 74-year-old male with a past medical history significant for coronary artery disease with previous CABG and subsequent stenting, hypertension, hyperlipidemia, peripheral vascular disease, atrial fibrillation, and former nicotine dependence. Patient follows in the office with Dr. Frey. We have been asked to see the patient in consultation for non-STEMI. Patient examined at the bedside in the emergency room. Patient states he has been having chest pain for the past week. He describes the discomfort as a heaviness. He states the pain has been occurring when he has been out working in the garage. He states it is not related to any food intake. He does report that he has been having pain with swallowing recently and was started on omeprazole and is scheduled to have endoscopy next week. At the time of examination he denies any chest pain or pressure. Denies any shortness of breath. Patient was found to have elevated troponins and was started on IV heparin. DIAGNOSTICS: - EKG reveals sinus mechanism with left bundle branch block. - Chest xray suspect new mild to moderate interstitial edema versus parenchymal fibrosis. - Chest CTA: Scattered peripheral infiltrates are nonspecific. Couple of possible small nodules. - Laboratory data: WBC 8.11. Hemoglobin 13.2. Platelet count 257. Sodium 141. Potassium 4.6. BUN 16. Creatinine 0.9. Troponin 0.046. 0.318. 0.718 - Current home cardiac medications include Zetia 10 mg daily, amiodarone 100 mg daily, Xarelto 20 mg with dinner, metoprolol succinate 25 mg daily, losartan 50 mg daily, Imdur 120 mg twice a day, aspirin 81 mg daily. - Most recent echocardiogram obtained in January 2024 revealed ejection fraction 37%, mild TR, mild AR, mild to moderate MR -Patient underwent Lexiscan stress test in November 2022 revealing fixed inferior wall defect. - Cardiac catheterization history: 2013 revealing EF 45%, 2 patent grafts, patent WAGNER to LAD and patent VG to RCA. 100% VG to OM 2. FFR LAD 0.83. Progress note 08/30/2024 Patient seen and examined at bedside this a.m. He is doing well. Denies any chest pain chest pressure BP 137/65, heart rate 54 bpm. PHYSICAL EXAM: VITAL SIGNS: Reviewed. GENERAL: Well-developed in no acute distress. HEENT: Head is normocephalic. Pupils are equal, round. Sclerae anicteric. Mucous membranes of the mouth are moist. Neck supple. No JVD or thyromegaly LUNGS: Respirations even and unlabored. Lungs essentially clear to auscultation bilaterally. HEART: Regular rate and rhythm. S1 and S2 heard. ABDOMEN: Soft. Nondistended. Nontender. EXTREMITIES: Normal range of motion. No clubbing or cyanosis. Peripheral pulses intact. No lower extremity edema NEUROLOGIC: Awake and alert. Oriented x 3. ASSESSMENT: Non-STEMI, status post PCI to ostial LAD by Dr. Frey Coronary artery disease with previous four-vessel CABG in 1993 with subsequent stenting Ischemic cardiomyopathy, ejection fraction 37% Known left bundle branch block Paroxysmal atrial fibrillation, on Xarelto outpatient Hypertension Hyperlipidemia Peripheral vascular disease Former nicotine dependence History of dysphagia, scheduled for outpatient endoscopy PLAN: Patient is cleared to be discharged from cardiovascular standpoint Aspirin, Plavix, Xarelto for 1 weeks. After 1 weeks stop aspirin, continue Xarelto and Plavix Imdur 120 mg daily, losartan 50 mg daily, metoprolol succinate 25 mg daily. Add amlodipine 2.5 mg daily Follow-up with Dr. Frey in 1 to2 weeks Objective - Vital Signs Vital signs: Vital Signs Temp 97.8 F 08/30/24 07:00 Pulse 54 L 08/30/24 07:00 Resp 16 08/30/24 07:00 BP 137/67 08/30/24 07:00 Pulse Ox 96 08/30/24 07:00 FiO2 Intake & Output 08/29/24 08/30/24 08/30/24 18:59 06:59 18:59 Intake Total 400 Output Total 475 Balance -75 Intake: IV 400 Output: Urine 475 Other: Voiding Method Toilet Toilet Toilet # Voids 1 3 - Labs CBC & Chem 7: 08/30/24 06:48 08/30/24 06:48 Labs: Abnormal Lab Results - Last 24 Hours (Table) 08/29/24 08/29/24 08/30/24 Range/Units 18:09 20:15 06:31 MPV (9.5-12.2) fL Glucose (74-99) mg/dL POC Glucose (mg/dL) 235 H 209 H 132 H (70-110) mg/dL 08/30/24 08/30/24 08/30/24 Range/Units 06:48 06:48 12:05 MPV 9.3 L (9.5-12.2) fL Glucose 137 H (74-99) mg/dL POC Glucose (mg/dL) 185 H (70-110) mg/dL
--- NOTE | 2024-08-30 13:39 | P.DS ---
Providers Date of admission: 08/28/24 14:39 Expected date of discharge: 08/30/24 Attending physician: Gregor Hernandez Consults: 08/28/24 14:37 Consult Physician Urgent Consulting Provider: Sae Frey Consult Reason/Comments: ua Do you want consulting provider notified?: Yes 08/29/24 13:41 Consult Physician Routine Consulting Provider: [facility] Consult Reason/Comments: Post Interventional Patient Do you want consulting provider notified?: Already Contacted Primary care physician: Jason Worrell Hospital Course: Discharge Diagnosis: NSTEMI. Troponins trended resulting at 0.046, 0.318, and 0.718. EKG showing sinus bradycardia with a first-degree AV block with [place] interval of 227 ms and a left bundle branch block. Echocardiogram was completed showing an EF of 45 to 50% with inferior and inferolateral wall hypokinesia and mild concentric LVH, and mild mitral and tricuspid regurgitation. Patient was taken for cardiac catheterization which revealed severe stenosis in the ostium of the RCA with significant progression since 2013 and severe triple-vessel disease. Patient underwent successful stenting of the ostium of the LAD with reported reduction of stenosis from 90% to less than 5%. Left bundle branch block, previously known History of CAD status post CABG x 4 followed by stenting x 3 Hypertension Hyperlipidemia Paroxysmal atrial fibrillation Type II ker-[id number]-cofncrahl diabetes mellitus Hospital Course: Patient is a very pleasant 74-year-old male with a past medical history of CAD status post CABG x 4 (1993) followed by stenting x 3 with last stent placed approximately 10 years ago, hypertension, hyperlipidemia, paroxysmal atrial fibrillation on anticoagulation with Xarelto, and type II aae-[id number] diabetes mellitus, and GERD. Patient reports he follows with wallpaper installer Dr. Frey and is recently undergoing workup for acid reflux and is scheduled for an EGD with Dr. Arreola next week. Patient reports he has been experiencing intermittent chest pain over the past couple of weeks but reports yesterday he was overdoing it working in his garage and cleaning out his garage and working on his car and started having increased acid reflux and when he went to lie down last night he again began to feel that pressure-like feeling to his midsternal chest accompanied by indigestion but states indigestion and frequent eructations resolved but the pressure in his chest remained and was radiating down his left arm similar to his previous heart attacks. Patient reports his previous heart attacks all began with increased acid reflux/heartburn as well. Patient reports when the pain traveled to his arm he knew he had to come in for evaluation. He reports his chest pain and left arm pain improved after 2 doses of his liquid nitro spray that was prescribed by his wallpaper installer and fully resolved shortly after Nitropaste was placed in the emergency department. On arrival to our facility, patient underwent evaluation in the emergency department. Vital signs upon arrival show blood pressure 164/82, heart rate 56, respiratory rate 18, temp 97.6 F, and SpO2 of 97% on room air. EKG was completed showing sinus bradycardia with a first-degree AV block with KY interval of 218 ms and a left bundle branch block (suspect left bundle branch block new as previous EKG available for review was completed 01/29/2014 showing only sinus bradycardia with no left bundle branch block). Chest x-ray completed showing mild to moderate interstitial edema. Labs completed and reviewed. CBC showing macrocytosis with MCV of 98.1 and MCH of 34.6. Coagulation profile showing elevated D-dimer of 1.15. BMP unremarkable. Blood glucose 145. Calcium 9.3. Magnesium 2.0. Liver profile unremarkable. Troponin was elevated at 0.046. CTA chest completed showing scattered peripheral infiltrates with possible small nodules/densities measuring 0.6 and 0.5 cm. Patient was given aspirin 324 mg p.o. x 1 dose, Nitropaste and started on IV heparin infusion for treatment of NSTEMI and admitted under services with consultation to cardiology. Troponins trended resulting at 0.046, 0.318, and 0.718. Repeat morning EKG again showing sinus bradycardia with a first-degree AV block with KY interval of 227 ms and a left bundle branch block. Left bundle branch block was confirmed to be previously known by cardiology. Echocardiogram was completed showing an EF of 45 to 50% with inferior and inferolateral wall hypokinesia and mild concentric LVH, and mild mitral and tricuspid regurgitation. Patient was taken for cardiac catheterization which revealed severe stenosis in the ostium of the RCA with significant progression since 2013 and severe triple-vessel disease. Patient underwent successful stenting of the ostium of the LAD with reported reduction of stenosis from 90% to less than 5%. Cardiology recommending patient to continue aspirin, Plavix, and Xarelto x 1 week then stop aspirin and continue Plavix and Xarelto indefinitely. Patient monitored overnight and remains free from any chest pain or discomfort. He denies having any complaints at this time. Left wrist cardiac cath access site showing no hematoma, drainage, or bleeding. Cardiology clearing patient from cardiac perspective at this time recommending outpatient follow-up in the office in 1 week. Patient medically optimized for discharge at this time and follow-up outpatient with PCP in 1 to 2 days and with wallpaper installer in 1 week. Patient discharged home with prescriptions for Plavix, isosorbide mononitrate, atorvastatin, and amlodipine. Physical exam: Vital signs reviewed and stable. General: Nontoxic, no distress and appears stated age. Derm: Skin warm and dry, normal coloration for ethnicity. Head: Atraumatic, normocephalic and symmetric. Eyes: EOM's intact, no lid lag, and anicteric sclera Mouth: no lip lesions, mucus membranes moist Cardiovascular: regular rate and rhythm with normal S1S2, systolic murmur, positive posterior tibial pulses bilaterally, and cap refill < 2 seconds. Lungs: Respirations even, regular, and unlabored on room air. Lungs CTA bilaterally, no rhonchi, no rales, no wheezing, and no accessory muscle usage. Abdominal: soft, nontender to palpation, no guarding, no appreciable organomegaly Ext: ROM intact. No gross muscle atrophy, scant edema, no contractures Neuro: Speech clear, face symmetrical and CN II-XII grossly intact with no noted focal neuro deficits Psych: Alert and oriented to person, place, time, and situation. Appropriate and pleasant affect. A total of 36 minutes of time were spent preparing this complex discharge summary. Pt was discharged on 08/30/2024 at 1:38 PM. Patient was seen independently by Nurse Practitioner. This document was prepared using [employer] dictation software. Please allow for errors in cream dipper while rare they do occur. Carlos Medellin NP rendered care for this patient independently, reviewed the findings and plan as documented in the note above. I did not physically speak with or examine the patient on this date. Patient Condition at Discharge: Stable Plan - Discharge Summary New Discharge Prescriptions: New Clopidogrel [Plavix] 75 mg PO DAILY #90 tablet Isosorbide Mononitrate ER [Imdur] 120 mg PO DAILY 90 Days #180 tab Atorvastatin [Lipitor] 40 mg PO HS 90 Days #90 tab amLODIPine [Norvasc] 2.5 mg PO DAILY 90 Days #90 tab Continue Aspirin EC [Ecotrin Low Dose] 81 mg PO HS Rivaroxaban [Xarelto] 20 mg PO W/SUPPER Nitroglycerin 0.4 mg SL Q5M PRN PRN Reason: Chest Pain Losartan [Cozaar] 50 mg PO DAILY Empagliflozin/Metformin HCl [Synjardy 12.5-1,000 mg Tablet] 2 tab PO DAILY HYDROcodone/APAP 7.5-325MG [[place] 7.5-325] 1 tab PO TID PRN 30 Days #90 tab PRN Reason: Pain Metoprolol Succinate [Metoprolol Succinate ER] 25 mg PO DAILY Omeprazole 20 mg PO DAILY Amiodarone [Cordarone] 100 mg PO DAILY Semaglutide [Ozempic] 0.5 mg SQ WE Ezetimibe [Zetia] 10 mg PO DAILY methocarbamoL [Robaxin] 750 mg PO TID PRN PRN Reason: muscle spasms Discontinued Isosorbide Mononitrate [Imdur] 120 mg PO BID Discharge Medication List Aspirin EC [Ecotrin Low Dose] 81 mg PO HS 12/07/13 [History] Nitroglycerin 0.4 mg SL Q5M PRN 01/27/14 [History] Rivaroxaban [Xarelto] 20 mg PO W/SUPPER 01/27/14 [History] Losartan [Cozaar] 50 mg PO DAILY 09/13/22 [History] Empagliflozin/Metformin HCl [Synjardy 12.5-1,000 mg Tablet] 2 tab PO DAILY 08/14/23 [History] HYDROcodone/APAP 7.5-325MG [[place] 7.5-325] 1 tab PO TID PRN 30 Days #90 tab 07/02/24 [Rx] Amiodarone [Cordarone] 100 mg PO DAILY 08/28/24 [History] Ezetimibe [Zetia] 10 mg PO DAILY 08/28/24 [History] Metoprolol Succinate [Metoprolol Succinate ER] 25 mg PO DAILY 08/28/24 [History] Omeprazole 20 mg PO DAILY 08/28/24 [History] Semaglutide [Ozempic] 0.5 mg SQ WE 08/28/24 [History] methocarbamoL [Robaxin] 750 mg PO TID PRN 08/28/24 [History] Clopidogrel [Plavix] 75 mg PO DAILY #90 tablet 08/29/24 [Rx] Atorvastatin [Lipitor] 40 mg PO HS 90 Days #90 tab 08/30/24 [Rx] Isosorbide Mononitrate ER [Imdur] 120 mg PO DAILY 90 Days #180 tab 08/30/24 [Rx] amLODIPine [Norvasc] 2.5 mg PO DAILY 90 Days #90 tab 08/30/24 [Rx] Follow up Appointment(s)/Referral(s): Sae Frey MD [STAFF PHYSICIAN] - 1 Week Jason Worrell MD [Primary Care Provider] - 1-2 days Patient Instructions/Handouts: Heart Attack (DC), Heart Catheterization (DC) Activity/Diet/Wound Care/Special Instructions: Activity: As tolerated. Take breaks as needed. Diet: Heart healthy and carb consistent diet. Avoid salts, or foods with hidden salts such as canned or boxed foods and frozen dinners. Extra salt makes your heart work harder and traps the fluid in your body for longer. Special Instructions: Take all of your medications as directed and remember to keep all of your doctor's appointments and follow-up as needed. You are being discharged home on aspirin, Plavix, and Xarelto. Continue taking all 3 of these medications for the next week and after 1 week you can discontinue aspirin and to continue Xarelto and Plavix every day indefinitely. Thank you for allowing us to participate in your care, it was truly a pleasure having you for our patient!!! Discharge Disposition: HOME SELF-CARE
[2024-08-30] MEDS: amLODIPine 2.5 MG TAB PO SCH (13:50)
[2024-08-30] MEDS ORDERED: RIVAROXABAN 20 MG TAB PO SCH (17:30)
== END 2024-08-30 14:15 | disposition home or self-care (01) | DRG 322 ==
LOC: EC 09:25 → 6NMEDSUR 14:38 → OBSVTOIN 14:39 → 6NMEDSUR 15:18
PROVIDERS: ADMIT Student in an Organized Health Care Education/Training Program; ATTEND Student in an Organized Health Care Education/Training Program
PROC: B240ZZ3 Ultrasonography of Single Coronary Artery, Intravascular (ICD-10-PCS; 2024-08-29)
PROC: 027034Z Dilation of Coronary Artery, One Artery with Drug-eluting Intraluminal Device, Percutaneous Approach (ICD-10-PCS; principal; 2024-08-29 12:00)
PROC: 4A023N7 Measurement of Cardiac Sampling and Pressure, Left Heart, Percutaneous Approach (ICD-10-PCS; 2024-08-29 12:00)
PROC: B2111ZZ Fluoroscopy of Multiple Coronary Arteries using Low Osmolar Contrast (ICD-10-PCS; 2024-08-29 12:00)
DX: I21.4 Non-ST elevation (NSTEMI) myocardial infarction (principal); D75.89 Other specified diseases of blood and blood-forming organs; E11.51 Type 2 diabetes mellitus with diabetic peripheral angiopathy without gangrene; I10 Essential (primary) hypertension; E78.5 Hyperlipidemia, unspecified; I25.810 Atherosclerosis of coronary artery bypass graft(s) without angina pectoris; I48.0 Paroxysmal atrial fibrillation; I44.7 Left bundle-branch block, unspecified; I25.10 Atherosclerotic heart disease of native coronary artery without angina pectoris; I44.0 Atrioventricular block, first degree; I25.5 Ischemic cardiomyopathy; K21.9 Gastro-esophageal reflux disease without esophagitis; R00.1 Bradycardia, unspecified; Z79.84 Long term (current) use of oral hypoglycemic drugs; I25.2 Old myocardial infarction; Z79.02 Long term (current) use of antithrombotics/antiplatelets; Z79.899 Other long term (current) drug therapy; Z88.8 Allergy status to other drugs, medicaments and biological substances; Z87.891 Personal history of nicotine dependence; Z95.5 Presence of coronary angioplasty implant and graft; Z79.01 Long term (current) use of anticoagulants
CPT/HCPCS: 36415; 71046; 71275; 80048; 80053; 80061; 82150; 83036; 83690; 83735; 84484; 85025; 85049; 85379; 85610; 85730; 92978; 93005; 93306; 93455; 96365; 96366; 99291

== ENCOUNTER 2024-09-07 16:53 | Inpatient (IN) | payer MEDICARE ==
--- NOTE | 2024-09-07 17:24 | ED ---
Chest Pain HPI - General Chief Complaint: Chest Pain Stated Complaint: chest pain Time Seen by Provider: 09/07/24 17:06 Source: patient, RN notes reviewed, old records reviewed Mode of arrival: ambulatory Limitations: no limitations - History of Present Illness Initial Comments: This is a 74-year-old male to the ER for evaluation severe chest pain 3 days of severe chest pain worsening. Not getting any better with recent stent placement, patient is on Xarelto, aspirin, no new medications taking medications as prescribed. Patient has persistent chest pain with out anything seeming to make it better or worse, this chest pain feels just like prior issues with needing stent and heart attack MD Complaint: chest pain -: days(s) (3) Severity: moderate Severity scale (1-10): 5 Quality: tightness, heaviness Consistency: constant Improves With: nitroglycerin Worsens With: nothing Anginal Symptoms: sense of impending doom Other Symptoms: palpitations Treatments Prior to Arrival: none - Related Data Home Medications Medication Instructions Recorded Confirmed Aspirin EC [Ecotrin Low Dose] 81 mg PO HS 12/07/13 09/07/24 Nitroglycerin 0.4 mg SL Q5M PRN 01/27/14 09/07/24 Rivaroxaban [Xarelto] 20 mg PO W/SUPPER 01/27/14 09/07/24 Losartan [Cozaar] 50 mg PO DAILY 09/13/22 09/07/24 Empagliflozin/Metformin HCl 2 tab PO DAILY 08/14/23 09/07/24 [Synjardy 12.5-1,000 mg Tablet] Amiodarone [Cordarone] 100 mg PO DAILY 08/28/24 09/07/24 Ezetimibe [Zetia] 10 mg PO DAILY 08/28/24 09/07/24 Metoprolol Succinate [Metoprolol 25 mg PO DAILY 08/28/24 09/07/24 Succinate ER] Omeprazole 20 mg PO DAILY 08/28/24 09/07/24 Semaglutide [Ozempic] 0.5 mg SQ WE 08/28/24 09/07/24 methocarbamoL [Robaxin] 750 mg PO TID PRN 08/28/24 09/07/24 Cinnamon Bark [Cinnamon] 1,000 mg PO BID 09/07/24 09/07/24 Previous Rx's Medication Instructions Recorded HYDROcodone/APAP 7.5-325MG [[place] 1 tab PO TID PRN 30 Days #90 tab 07/02/24 7.5-325] Clopidogrel [Plavix] 75 mg PO DAILY #90 tablet 08/29/24 Atorvastatin [Lipitor] 40 mg PO HS 90 Days #90 tab 08/30/24 Isosorbide Mononitrate ER [Imdur] 120 mg PO DAILY 90 Days #180 tab 08/30/24 amLODIPine [Norvasc] 2.5 mg PO DAILY 90 Days #90 tab 08/30/24 Allergies Allergy/AdvReac Type Severity Reaction Status Date / Time niacin Allergy Itching Verified 09/07/24 19:32 Review of Systems ROS Statement: Those systems with pertinent positive or pertinent negative responses have been documented in the HPI. ROS Other: All systems not noted in ROS Statement are negative. EKG Findings - EKG Comments: EKG Findings:: EKG is bradycardia 59 SD 198 QRS 178 QTc 501 patient does have left bundle which is old - EKG Results: EKG: interpreted by WENDY Past Medical History Past Medical History: Coronary Artery Disease (CAD), Diabetes Mellitus, Hearing Disorder / Deafness, Hyperlipidemia, Hypertension, Myocardial Infarction (UT), Osteoarthritis (OA), Renal Disease Additional Past Medical History / Comment(s): 2001 mild UT. Hx of shingles with residual nerve pain in shoulder and chest. Hearing aid use.kidney stones, Last Myocardial Infarction Date:: 2001 History of Any Multi-Drug Resistant Organisms: None Reported Past Surgical History: Coronary Bypass/CABG, Heart Catheterization Additional Past Surgical History / Comment(s): 1993 quadruple bypass, cardioversion, heart catheterization X4-5, carpal tunnel surgery, cataract surgery, pain procedures, bilateral carpal tunnel surgery, colonoscopy. Past Anesthesia/Blood Transfusion Reactions: No Reported Reaction Past Psychological History: No Psychological Hx Reported Smoking Status: Former smoker Past Alcohol Use History: None Reported Past Drug Use History: None Reported - Past Family History Mother Family Medical History: No Reported History General Exam Limitations: no limitations General appearance: alert, in no apparent distress Head exam: Present: atraumatic, normocephalic, normal inspection Eye exam: Present: normal appearance, PERRL, EOMI. Absent: scleral icterus, conjunctival injection, periorbital swelling ENT exam: Present: normal exam, mucous membranes moist Neck exam: Present: normal inspection. Absent: tenderness, meningismus, lymphadenopathy Respiratory exam: Present: normal lung sounds bilaterally. Absent: respiratory distress, wheezes, rales, rhonchi, stridor Cardiovascular Exam: Present: regular rate, normal rhythm, normal heart sounds. Absent: systolic murmur, diastolic murmur, rubs, gallop, clicks GI/Abdominal exam: Present: soft, normal bowel sounds. Absent: distended, tenderness, guarding, rebound, rigid Extremities exam: Present: normal inspection, full ROM, normal capillary refill. Absent: tenderness, pedal edema, joint swelling, calf tenderness Back exam: Present: normal inspection Neurological exam: Present: alert, oriented X3, CN II-XII intact Psychiatric exam: Present: normal affect, normal mood Skin exam: Present: warm, dry, intact, normal color. Absent: rash Course Vital Signs 09/07/24 09/07/24 17:00 19:03 Temperature 97.6 F Pulse Rate 58 L 58 L Respiratory 20 16 Rate Blood Pressure 146/67 117/57 O2 Sat by Pulse 99 97 Oximetry - Reevaluation(s) Reevaluation #1: 09/07/24 18:24 Medical records reviewed Reevaluation #2: 09/07/24 19:48 Patient still with chest pain here in the ER Reevaluation #3: 09/07/24 19:48 Patient informed of results questions answered Reevaluation #4: Was pt. sent in by a medical professional or institution (, PA, PRINTING SERVICES COORDINATOR, urgent care, hospital, or [facility]...) When possible be specific @ -no Did you speak to anyone other than the patient for history (EMS, parent, family, police, friend...)? What history was obtained from this source @ -no Did you review nursing and triage notes (agree or disagree)? Why? @ -agree Are old charts reviewed (outside hosp., previous admission, EMS record, old EKG, old radiological studies, urgent care reports/EKG's, [facility] records)? Report findings @ -yes Differential Diagnosis (chest pain, altered mental status, abdominal pain women, abdominal pain men, vaginal bleeding, weakness, fever, dyspnea, syncope, headache, dizziness, GI bleed, back pain, seizure, CVA, palpatations, mental health, musculoskeletal)? @ -prior EKG interpreted by me (3pts min.). @ -yes X-rays interpreted by me (1pt min.). @ -yes negative for acute disease CT interpreted by me (1pt min.). @ -no U/S interpreted by me (1pt. min.). @ -no What testing was considered but not performed or refused? (CT, X-rays, U/S, labs)? Why? @ -none What meds were considered but not given or refused? Why? @ -none Did you discuss the management of the patient with other professionals (professionals i.e. DrHaylee, PA, PRINTING SERVICES COORDINATOR, lab, RT, psych nurse, social media job titles, attorney lawyer, teacher, parking officer, employment evaluator/case manager)? Give summary @ -no Was smoking cessation discussed for >3mins.? @ -no Was critical care preformed (if so, how long)? @ -no Were there social determinants of health that impacted care today? How? (Homelessness, low income, unemployed, alcoholism, drug addiction, transportation, low edu. Level, literacy, decrease access to med. care, residential, rehab)? @ -none Was there de-escalation of care discussed even if they declined (Discuss DNR or withdrawal of care, Hospice)? DNR status @ -no What co-morbidities impacted this encounter? (DM, HTN, Smoking, COPD, CAD, Cancer, CVA, ARF, Chemo, Hep., AIDS, mental health diagnosis, sleep apnea, morbid obesity)? @ -none Was patient admitted / discharged? Hospital course, mention meds given and route, prescriptions, significant lab abnormalities, going to OR and other pertinent info. @ - Undiagnosed new problem with uncertain prognosis? @ -no Drug Therapy requiring intensive monitoring for toxicity (Heparin, Nitro, Insulin, Cardizem)? @ -no Were any procedures done? @ -no Diagnosis/symptom? @ - Acute, or Chronic, or Acute on Chronic? @ -Acute Uncomplicated (without systemic symptoms) or Complicated (systemic symptoms)? @ -Complicated Side effects of treatment? @ -no Exacerbation, Progression, or Severe Exacerbation? @ -exacerbation Poses a threat to life or bodily function? How? (Chest pain, [place], UT, pneumonia, PE, COPD, DKA, ARF, appy, cholecystitis, CVA, Diverticulitis, Homicidal, Suicidal, threat to staff... and all critical care pts) @ -yes Reevaluation #5: Differential Chest Pain: Stable Angina, Unstable Angina, STEMI, NSTEMI Aortic Dissection, Pneumothorax, Musculoskeletal, Esophageal Spasm GERD, Cholecystitis, Pancreatitis, Zoster, this is not meant to be an all-inclusive list. - Consultations Consultation #1: Spoke with sound who agrees to admit this patient Chest Pain MDM - MDM 74 male to the ER for evaluation of severe chest pain chest pain for 3 days patient will be admitted for acute ACS recent stent placement Critical Care Time Critical Care Time: Yes Total Critical Care Time: 31 Disposition Clinical Impression: Unstable angina pectoris, Chest pain, Acute non-ST elevation myocardial infarction (NSTEMI) Disposition: ADMITTED IP TO THIS HOSP Condition: Serious Is patient prescribed a controlled substance at d/c from ED?: No Referrals: Jason Worrell MD [Primary Care Provider] - 1-2 days Time of Disposition: 19:30
[2024-09-07 18:06] LABS: Basophils # (A) 0.06 10*3/uL (0.00-0.10); Basophils % (A) 0.9 %; Eosinophils # (A) 0.37 10*3/uL (0.04-0.35); Eosinophils % (A) 5.4 %; HCT 37.1 % (39.6-50.0); HGB 12.9 g/dL (13.0-17.0); Lymphocytes # (A) 1.54 10*3/uL (0.90-5.00); Lymphocytes % (A) 22.5 %; MCH 34.7 pg (27.0-32.0); MCHC 34.8 g/dL (32.0-37.0); MCV 99.7 fL (80.0-97.0); Mean Platelet Volume 9.2 fL (9.5-12.2); Monocytes # (A) 0.96 10*3/uL (0.20-1.00); Neutrophils % (A) 56.9 %; Platelet Count 214 10*3/uL (140-440); RBC 3.72 10*6/uL (4.40-5.60); RDW 13.7 % (11.5-14.5); WBC 6.85 10*3/uL (4.50-10.00)
--- NOTE | 2024-09-07 18:11 | XR ---
EXAMINATION TYPE: XR chest 2V DATE OF EXAM: 09/07/2024 5:39 PM COMPARISON: Chest radiographs from 08/28/2024 CLINICAL INDICATION: Male, 74 years old with history of Chest Pain; [facility] TECHNIQUE: XR chest 2V Frontal and lateral views of the chest. FINDINGS: Lungs/Pleura: There is no evidence of pleural effusion, focal consolidation, or pneumothorax. Pulmonary vascularity: Pulmonary vascular congestion. Heart/mediastinum: Cardiomediastinal silhouette is unremarkable. Musculoskeletal: No acute osseous pathology. Midline sternotomy wires and surgical clips project over the mediastinum. Other findings: None IMPRESSION: Redemonstration of this interstitial changes throughout the lungs not significantly changed from 2024. Correlate for pulmonary edema versus atypical pneumonia.. [facility], , 09/07/2024 6:08 PM
[2024-09-07 18:16] LABS: ALT 17 U/L (4-49); AST 23 U/L (17-59); African American GFR (CKD) >90 (>60 ml/min/1.73 sqM); Albumin 4.2 g/dL (3.5-5.0); Alkaline Phosphatase 70 U/L (38-126); Anion Gap 10 mmol/L; Blood Urea Nitrogen 21 mg/dL (9-20); Calcium 9.4 mg/dL (8.4-10.2); Carbon Dioxide 25 mmol/L (22-30); Chloride 101 mmol/L (98-107); Glucose 164 mg/dL (74-99); Lipase 153 U/L (23-300); Magnesium 2.2 mg/dL (1.6-2.3); Non-African American GFR(CKD) 85 (>60 ml/min/1.73 sqM); Potassium 4.4 mmol/L (3.5-5.1); Sodium 136 mmol/L (137-145); Total Bilirubin 0.5 mg/dL (0.2-1.3); Total Protein 7.3 g/dL (6.3-8.2)
[2024-09-07 18:21] LABS: Partial Thromboplastin Time 23.3 sec (22.0-30.0); Prothrombin Time 10.7 sec (10.0-12.5)
[2024-09-07 18:25] LABS: NT-Pro-B-Type Natriuretic Pept 1310 pg/mL
[2024-09-07] MEDS ORDERED: NITROGLYCERIN SL TABS 0.4 MG TAB SUBLINGUAL PRN (19:46)
[2024-09-07] MEDS: MORPHINE SULFATE 4 MG/ML SYRINGE IV PRN (20:09)
[2024-09-07] MEDS: ASPIRIN 81 MG PO STA (20:09)
[2024-09-08] MEDS ORDERED: DEXTROSE 50% SYRINGE 50 ML IVP PRN ×2 (02:39)
--- NOTE | 2024-09-08 02:41 | P.HPIM ---
History of Present Illness H&P Date: 09/07/24 Chief Complaint: Chest pain 74 year old male presented with sudden onset of severe left-sided chest pain that began while resting. The pain was rated 10/10 at its worst. Patient reported slight trouble breathing but denied heavy sweating, dizziness, lightheadedness, nausea, or vomiting. Of note, he had a cardiac stent placed 1 week ago and has a history of 5 previous heart catheterizations. And CABG Denies tobacco smoking illicit drugs or heavy alcohol review of systems Pertinent positives as noted in HPI. All other systems were reviewed and are negative on exam Constitutional: No acute distress, conversant, pleasant Eyes: Anicteric sclerae, moist conjunctiva, Pupils equal round reactive to light ENMT: NC/AT Oropharynx clear, no erythema, or exudates Neck: Supple, no masses, or JVD No carotid bruits No thyromegaly Lungs: Clear to auscultation Clear to percussion Normal respiratory effort, no accessory muscle use Cardiovascular: Heart regular in rate and rhythm, No murmurs, gallops, or rubs No peripheral edema Abdominal: Soft Nontender, no guarding, rebound or rigidity Abdomen moving with respiration Normoactive bowel sounds Extremities: No digital cyanosis No clubbing Pedal pulses intact and symmetrical Radial pulses intact and symmetrical No calf tenderness Psychiatric: Alert and oriented to person, place and time Appropriate affect fair judgement Neuro Muscles Strength 5/5 in all 4 extremities Sensation to light touch grossly present throughout Cranial nerves II-XII grossly intact Past Medical History Past Medical History: Coronary Artery Disease (CAD), Diabetes Mellitus, Hearing Disorder / Deafness, Hyperlipidemia, Hypertension, Myocardial Infarction (OR), Osteoarthritis (OA), Renal Disease Additional Past Medical History / Comment(s): 2001 mild OR. Hx of shingles with residual nerve pain in shoulder and chest. Hearing aid use.kidney stones, Last Myocardial Infarction Date:: 2001 History of Any Multi-Drug Resistant Organisms: None Reported Past Surgical History: Coronary Bypass/CABG, Heart Catheterization Additional Past Surgical History / Comment(s): 1993 quadruple bypass, cardioversion, heart catheterization X4-5, carpal tunnel surgery, cataract surgery, pain procedures, bilateral carpal tunnel surgery, colonoscopy. Past Anesthesia/Blood Transfusion Reactions: No Reported Reaction Past Psychological History: No Psychological Hx Reported Smoking Status: Former smoker Past Alcohol Use History: None Reported Past Drug Use History: None Reported - Past Family History Mother Family Medical History: No Reported History Medications and Allergies Home Medications Medication Instructions Recorded Confirmed Type Aspirin EC [Ecotrin Low Dose] 81 mg PO HS 12/07/13 09/07/24 History Nitroglycerin 0.4 mg SL Q5M PRN 01/27/14 09/07/24 History Rivaroxaban [Xarelto] 20 mg PO W/SUPPER 01/27/14 09/07/24 History Losartan [Cozaar] 50 mg PO DAILY 09/13/22 09/07/24 History Empagliflozin/Metformin HCl 2 tab PO DAILY 08/14/23 09/07/24 History [Synjardy 12.5-1,000 mg Tablet] HYDROcodone/APAP 7.5-325MG [[place] 1 tab PO TID PRN 30 Days #90 tab 07/02/24 09/07/24 Rx 7.5-325] Amiodarone [Cordarone] 100 mg PO DAILY 08/28/24 09/07/24 History Ezetimibe [Zetia] 10 mg PO DAILY 08/28/24 09/07/24 History Metoprolol Succinate [Metoprolol 25 mg PO DAILY 08/28/24 09/07/24 History Succinate ER] Omeprazole 20 mg PO DAILY 08/28/24 09/07/24 History Semaglutide [Ozempic] 0.5 mg SQ WE 08/28/24 09/07/24 History methocarbamoL [Robaxin] 750 mg PO TID PRN 08/28/24 09/07/24 History Clopidogrel [Plavix] 75 mg PO DAILY #90 tablet 08/29/24 09/07/24 Rx Atorvastatin [Lipitor] 40 mg PO HS 90 Days #90 tab 08/30/24 09/07/24 Rx Isosorbide Mononitrate ER [Imdur] 120 mg PO DAILY 90 Days #180 tab 08/30/24 09/07/24 Rx amLODIPine [Norvasc] 2.5 mg PO DAILY 90 Days #90 tab 08/30/24 09/07/24 Rx Cinnamon Bark [Cinnamon] 1,000 mg PO BID 09/07/24 09/07/24 History Allergies Allergy/AdvReac Type Severity Reaction Status Date / Time niacin Allergy Itching Verified 09/07/24 19:32 Physical Exam Vitals: Vital Signs Temp Pulse Resp BP Pulse Ox 09/07/24 19:03 58 L 16 117/57 97 09/07/24 17:00 97.6 F 58 L 20 146/67 99 Intake and Output 09/07/24 09/07/24 09/08/24 14:59 22:59 06:59 Other: Weight 76.204 kg Results CBC & Chem 7: 09/07/24 17:57 09/07/24 17:57 Labs: Abnormal Lab Results - Last 24 Hours (Table) 09/07/24 09/07/24 09/07/24 Range/Units 17:57 17:57 17:57 RBC 3.72 L (4.40-5.60) 10*6/uL Hgb 12.9 L (13.0-17.0) g/dL Hct 37.1 L (39.6-50.0) % MCV 99.7 H (80.0-97.0) fL MCH 34.7 H (27.0-32.0) pg MPV 9.2 L (9.5-12.2) fL Eosinophils # 0.37 H (0.04-0.35) 10*3/uL Sodium 136 L (137-145) mmol/L BUN 21 H (9-20) mg/dL Glucose 164 H (74-99) mg/dL Troponin I 0.162 H* (0.000-0.034) ng/mL 09/07/24 Range/Units 20:55 RBC (4.40-5.60) 10*6/uL Hgb (13.0-17.0) g/dL Hct (39.6-50.0) % MCV (80.0-97.0) fL MCH (27.0-32.0) pg MPV (9.5-12.2) fL Eosinophils # (0.04-0.35) 10*3/uL Sodium (137-145) mmol/L BUN (9-20) mg/dL Glucose (74-99) mg/dL Troponin I 0.296 H* (0.000-0.034) ng/mL Assessment and Plan Assessment: 74-year-old male with diabetes mellitus coronary artery disease status post stents and CABG coming in for recurrent chest pain I discussed case with the doctor and accepted the admission for chest pain rule out acute coronary syndrome With anticipated length of stay less than 2 midnights Assessment: 1. NSTEMI history of recent stent placement and multiple previous heart catheterizations. a) Acute coronary syndrome b) Stent thrombosis or restenosis c) Pericarditis d) Musculoskeletal chest pain Plan: 1. Admit for further evaluation and management of acute chest pain 2. Cardiology consultation with Dr. Andrade 3. No acute ST changes on ECG and cardiac enzymes trending Pain control with sublingual nitro and morphine as needed 2 mg every 4 hours Elevated troponin 0.162 then became 0.296 Continue patient on Xarelto which she is taking for A-fib Continue with Imdur Diabetes mellitus Insulin sliding scale Atrial fibrillation Continue metoprolol and amiodarone Continue with Xarelto Hyperlipidemia Continue statin Rest of blood work overall unremarkable white count 6.8 hemoglobin 12.9 sodium 136 potassium 4.4 BUN 21 creatinine 0.8 Full code DVT prophylaxis continue Xarelto for A-fib/NSTEMI
[2024-09-08] MEDS: RIVAROXABAN 20 MG TAB PO SCH ×2 (03:14→17:16)
[2024-09-08] MEDS: NITROGLYCERIN OINT 1 INCH/GM PACKET TOPICAL STA (05:34)
[2024-09-08] MEDS ORDERED: ALPRAZolam 0.25 MG TAB PO PRN (07:42)
[2024-09-08] MEDS ORDERED: NITROGLYCERIN SL TABS 0.4 MG TAB SUBLINGUAL PRN ×2 (07:42→09:34)
[2024-09-08 07:44] LABS: Glucose,Whole Blood 111 mg/dL (70-110)
[2024-09-08] MEDS: INSULIN LISPRO (HumaLOG) 100 UNIT/ML 10 mL VL SQ SCH (08:08)
[2024-09-08] MEDS: ASPIRIN 325 MG TAB PO STA (08:12)
[2024-09-08] MEDS: ATORVASTATIN 80 MG TAB PO STA (08:12)
[2024-09-08] MEDS: SODIUM CHLORIDE 0.9% 1,000 ML IV SCH (08:15)
[2024-09-08] MEDS: HEPARIN SODIUM,PORCINE (1 ML) 2,500 UNIT in SODIUM CHLORIDE 0.9% 250 ML IRRIGATION PRN (08:22)
[2024-09-08] MEDS: HEPARIN SODIUM,PORCINE 10,000 UNIT in SODIUM CHLORIDE 0.9% 1,000 ML IRRIGATION PRN (08:22)
[2024-09-08 08:26] LABS: Chol/HDL Ratio 4.06 Ratio; LDL Cholesterol,Calculated 76.9 mg/dL (0.0-131.0)
[2024-09-08] MEDS: fentaNYL (PF) 50 MCG/ML 2 ML AMP IVP ONE (08:35)
[2024-09-08] MEDS: LIDOCAINE 1% INJ 10MG/ML (20 ML MDV) SQ ONE (08:36)
[2024-09-08] MEDS: VERAPAMIL SYRINGE (5 MG/10 ML) INTRAARTER ONE (08:37)
[2024-09-08] MEDS: HEPARIN SODIUM 1,000 UN/ML (10ML VL) IV ONE (08:40)
[2024-09-08] MEDS: CLOPIDOGREL 75 MG TAB PO ONE (08:40)
[2024-09-08] MEDS: IOPAMIDOL-370 100ML BTL INJ ONE ×2 (08:56→09:20)
[2024-09-08] MEDS ORDERED: ATORVASTATIN 80 MG TAB PO SCH (09:00)
[2024-09-08] MEDS: NITROGLYCERIN 1000MCG/10ML SYRINGE INTRACORON ONE (09:00)
[2024-09-08] MEDS: MIDAZOLAM 2 MG/2 ML VIAL IVP ONE (09:14)
[2024-09-08] MEDS ORDERED: ATROPINE SULFATE 0.1 MG/ML 10ML SYRINGE IV PRN (09:34)
[2024-09-08] MEDS ORDERED: MAG HYDROX/AL HYDROX/SIMETH 30 ML CUP PO PRN (09:34)
[2024-09-08] MEDS ORDERED: RX INFO: IV CONTRAST WAS GIVEN 1 EACH MISC MISCELLANE PRN (09:34)
[2024-09-08] MEDS ORDERED: ZOLPIDEM 5 MG TAB PO PRN (09:34)
--- NOTE | 2024-09-08 09:52 | P.CARDCATH ---
Date of Procedure: 09/08/24 Description of Procedure: Cardiac Catheterization: The patient 74-year-old male with a known history of CAD, status post recent PCI and prior CABG and known disease in the first small diagonal branch who presented with symptoms of chest discomfort with mild troponin elevation. He was evaluated by Dr. Arreola recommendations were made regarding cardiac catheterization, the risks and the complications were discussed with the patient who is in full understanding and agreement. Procedure Description: Patient was brought to builder's labourer in fasting semi-sedated state after receiving Fentanyl and Benadryl achieiving moderate conscious sedated state. Using Xylocaine Anesthesia and modified Seldinger technique, a 6-[place] sheath was introduced in the right radial artery . Subsequently, selective coronary angiography was performed using a 6-[place]ian CLS 3.5 guiding catheter and 5 [place] 3.5 bend right Scarlett catheter. Multiple views of the coronary artery including hemiaxial views were obtained. The CLS catheter was used to cross the aortic valve and LVEDP was calculated. The right Scarlett was used to cannulate the SVG to the RCA. PCI: Using the CLS guiding catheter attempt to advanced a 0.014 BMW wire were unsuccessful, that wire was removed and a 0.014 whisper J-wire was advanced positioned in the distal diagonal branch and subsequently exchanged using a fine cross microcatheter 12.014 BMW J-wire. Subsequently a 2.25 x 12 mm trek balloon was advanced and 2 inflations at 8 liv were done. After removing the balloon attempt to advanced a [employer] [place] eye IVUS catheter was unsuccessful, after removing the catheter 2.25 x 18 mm Xience rajiv point stent was advanced and deployed at 16 liv. After removing the balloon IVUS catheter was advanced and showed mild under deployment in the stent and after removing the catheter a 2.75 x 12 mm NC trek balloon was advanced and 1 inflation at 12 liv was done. Following that, catheter and sheath were removed. Hemostasis was obtained with deployment of vascular band . There was no immediate complication. Patient was returned to room in stable condition. Of note, the patient received a total of 6000 units of intravenous heparin as well as intra-arterial verapamil. His ACT was monitored. He was continued on clopidogrel. He had chest discomfort that improved at the end of the procedure. Findings: Left main: This is a short size vessel, bifurcating into LAD and left circumflex. The left main has no obstructive disease. LAD: The stented segment in the proximal LAD is patent. The LAD in the midsegment is totally occluded with no antegrade flow. It gives rise to 2 diagonal branch, the first 1 has a 99% stenosis and it is small in caliber. Left circumflex: This vessel is totally occluded proximally with no significant antegrade flow. It gives rise to a small very proximal obtuse marginal branch that has a 70% stenosis proximally. RCA: This vessel is chronically occluded proximally with no antegrade flow SVG to the RCA: The proximal and distal anastomotic site are patent. The flow into the RCA is brisk. Left Ventriculogram: Not performed Hemodynamics: There was no gradient across the aortic valve, LVEDP was 16-18 mmHg Conclusion: 1. Severe stenosis in the first diagonal branch 2. Patent stent in the proximal LAD 3. Chronically occluded RCA and left circumflex 4. Patent SVG to the RCA 5. Successful stenting of the first diagonal branch with reduction of stenosis from 99% to less than 5% with IVUS imaging and BUCK-3 flow Recommendations: The patient will continue on aspirin and clopidogrel for 1 year in addition to aggressive coronary risks modification, maintaining LDL below 70 mg/dL. The findings and the recommendations were discussed with the patient and the family and they were in full understanding and agreement. Duration of sedation is 47 minutes.
[2024-09-08 09:56] LABS: Glucose,Whole Blood 118 mg/dL (70-110)
--- NOTE | 2024-09-08 11:33 | P.CRDCN ---
History of Present Illness Consult date: 09/08/24 Reason for Consult (text): NSTEMI History of present illness: This is a 74-year-old male patient of Dr. Frey with past medical history of recent NSTEMI with stenting of the ostial LAD with IVUS imaging and BUCK III flow, coronary artery disease with previous CABG, ischemic cardiomyopathy, paroxysmal atrial fibrillation, hypertension, hyperlipidemia, diabetes mellitus type 2. We have been asked to evaluate patient for NSTEMI. Patient came into the hospital with chest pain that started in the precordial area and left arm was involved. Pain had been going on for 3 days and gradually worsening in intensity. This pain did feel similar to that when he had his recent stent done. Patient has been started on heparin drip. Blood pressure 129/86, heart rate 51, pulse ox 98% on room air. Patient is seen today in the emergency center waiting for bed on the cardiac stepdown unit. Recommendations regarding cardiac catheterization have been discussed with the patient he is agreeable to move forward with this today. -EKG: Sinus rhythm with left bundle branch block unchanged from previous. -Chest x-ray: Unchanged interstitial changes throughout the lungs. -Laboratory studies: Troponin 0.162, 0.296, 0.533. WBC 6.8, hemoglobin 12.9, sodium 136, potassium 4.4, BUN 21 creatinine 0.87. Triglycerides 113, cholesterol 132, LDL 76. -Home cardiac medications: Amiodarone 100 mg daily, amlodipine 2.5 mg daily, aspirin 81 mg daily, atorvastatin 40 mg at bedtime, Plavix 75 mg daily, Zetia 10 mg daily, Imdur 120 mg daily, losartan 50 mg daily, metoprolol succinate 25 mg daily, Nitrostat as needed, Xarelto 20 mg with supper, also on Ozempic. -Cardiac catheterization performed 08/29/2024 revealed severe stenosis of the osseous of the RCA with significant progression since 2013, severe triple-vessel disease, patent WAGNER to the LAD with diffuse disease in the LAD, patent SVG to the RCA with known occluded SVG to the OM1 and distal left circumflex OM. Patient underwent successful stenting of the ostium of the LAD with reduction of stenosis from 90% to 5%. Plan was to continue aspirin Plavix and Xarelto for 1 week and then stop aspirin. -Echocardiogram performed on 08/29/2024: EF 45 to 50%, inferior and inferior lateral wall hypokinesis. Mild concentric LVH. Mildly reduced global LV systolic function. Normal RV size and systolic function. Mild left atrial dilatation. Mild MR and mild TR. Review Of Systems: At the time of my exam: CONSTITUTIONAL: Denies fever or chills. HEENT: Denies blurred vision, vision changes, or eye pain. Denies hemoptysis CARDIOVASCULAR: Denies chest pain. Denies orthopnea. Denies PND. Denies palpitations RESPIRATORY: Denies shortness of breath. GASTROINTESTINAL: Denies abdominal pain. Denies nausea or vomiting. HEMATOLOGIC: Denies bleeding disorders. GENITOURINARY: Denies any blood in urine. SKIN: Denies puritis. Denies rash. Physical examination: Gen: This is 74-year-old male in no acute distress. VS: reviewed HEENT: Head is atraumatic, normocephalic. Pupils equal, round. Sclerae is anicteric. NECK: Supple. No JVD. LUNGS: Clear to auscultation. No wheezes or rhonchi. No intercostal retractions. HEART: Regular rate and rhythm. 2/6 systolic ejection murmur. ABDOMEN: Soft No tenderness. EXTREMITIES: No pedal edema. No calf tenderness. NEUROLOGICAL: Patient is awake, alert and oriented x3. Assessment: NSTEMI Recent hospitalization for NSTEMI status post stenting of the ostium of the LAD Ischemic cardiomyopathy with EF improved to 45 to 50% Known left bundle branch block Paroxysmal atrial fibrillation on Xarelto Hypertension Hyperlipidemia Peripheral vascular disease Remote history of tobacco use and dependence Plan: Resume patient's home cardiac medications Continue heparin drip Schedule patient for cardiac catheterization today with Dr. Frey Obtain 2-D echocardiogram and Doppler study to assess cardiac structure and function Further recommendations to follow based upon clinical course Thank you kindly for this consultation. Nurse practitioner note has been reviewed, I agree with documented findings and plan of care. Patient was seen and examined. Past Medical History Past Medical History: Coronary Artery Disease (CAD), Diabetes Mellitus, Hearing Disorder / Deafness, Hyperlipidemia, Hypertension, Myocardial Infarction (CA), Osteoarthritis (OA), Renal Disease Additional Past Medical History / Comment(s): 2001 mild CA. Hx of shingles with residual nerve pain in shoulder and chest. Hearing aid use.kidney stones, Last Myocardial Infarction Date:: 2001 History of Any Multi-Drug Resistant Organisms: None Reported Past Surgical History: Coronary Bypass/CABG, Heart Catheterization Additional Past Surgical History / Comment(s): 1993 quadruple bypass, cardioversion, heart catheterization X4-5, carpal tunnel surgery, cataract surgery, pain procedures, bilateral carpal tunnel surgery, colonoscopy. Past Anesthesia/Blood Transfusion Reactions: No Reported Reaction Past Psychological History: No Psychological Hx Reported Smoking Status: Former smoker Past Alcohol Use History: None Reported Past Drug Use History: None Reported - Past Family History Mother Family Medical History: No Reported History Medications and Allergies Home Medications Medication Instructions Recorded Confirmed Type Aspirin EC [Ecotrin Low Dose] 81 mg PO HS 12/07/13 09/07/24 History Nitroglycerin 0.4 mg SL Q5M PRN 01/27/14 09/07/24 History Rivaroxaban [Xarelto] 20 mg PO W/SUPPER 01/27/14 09/07/24 History Losartan [Cozaar] 50 mg PO DAILY 09/13/22 09/07/24 History Empagliflozin/Metformin HCl 2 tab PO DAILY 08/14/23 09/07/24 History [Synjardy 12.5-1,000 mg Tablet] HYDROcodone/APAP 7.5-325MG [[place] 1 tab PO TID PRN 30 Days #90 tab 07/02/24 09/07/24 Rx 7.5-325] Amiodarone [Cordarone] 100 mg PO DAILY 08/28/24 09/07/24 History Ezetimibe [Zetia] 10 mg PO DAILY 08/28/24 09/07/24 History Metoprolol Succinate [Metoprolol 25 mg PO DAILY 08/28/24 09/07/24 History Succinate ER] Omeprazole 20 mg PO DAILY 08/28/24 09/07/24 History Semaglutide [Ozempic] 0.5 mg SQ WE 08/28/24 09/07/24 History methocarbamoL [Robaxin] 750 mg PO TID PRN 08/28/24 09/07/24 History Clopidogrel [Plavix] 75 mg PO DAILY #90 tablet 08/29/24 09/07/24 Rx Atorvastatin [Lipitor] 40 mg PO HS 90 Days #90 tab 08/30/24 09/07/24 Rx Isosorbide Mononitrate ER [Imdur] 120 mg PO DAILY 90 Days #180 tab 08/30/24 09/07/24 Rx amLODIPine [Norvasc] 2.5 mg PO DAILY 90 Days #90 tab 08/30/24 09/07/24 Rx Cinnamon Bark [Cinnamon] 1,000 mg PO BID 09/07/24 09/07/24 History Allergies Allergy/AdvReac Type Severity Reaction Status Date / Time niacin Allergy Itching Verified 09/07/24 19:32 Physical Exam Vitals: Vital Signs Temp Pulse Resp BP Pulse Ox 09/08/24 05:30 51 L 16 136/73 96 09/08/24 00:00 52 L 18 125/68 98 09/07/24 22:00 53 L 18 154/77 98 09/07/24 20:00 58 L 17 125/68 98 09/07/24 19:03 58 L 16 117/57 97 09/07/24 17:00 97.6 F 58 L 20 146/67 99 Intake and Output 09/07/24 09/08/24 09/08/24 22:59 06:59 14:59 Other: Weight 76.204 kg Results 09/07/24 17:57 09/07/24 17:57 Cardiac Enzymes 09/07/24 09/07/24 09/07/24 Range/Units 17:57 17:57 20:55 AST 23 (17-59) U/L Troponin I 0.162 H* 0.296 H* (0.000-0.034) ng/mL 09/08/24 Range/Units 00:24 AST (17-59) U/L Troponin I 0.533 H* (0.000-0.034) ng/mL Coagulation 09/07/24 Range/Units 17:57 PT 10.7 (10.0-12.5) sec APTT 23.3 (22.0-30.0) sec CBC 09/07/24 Range/Units 17:57 WBC 6.85 (4.50-10.00) 10*3/uL RBC 3.72 L (4.40-5.60) 10*6/uL Hgb 12.9 L (13.0-17.0) g/dL Hct 37.1 L (39.6-50.0) % Plt Count 214 (140-440) 10*3/uL Comprehensive Metabolic Panel 09/07/24 Range/Units 17:57 Sodium 136 L (137-145) mmol/L Potassium 4.4 (3.5-5.1) mmol/L Chloride 101 (98-107) mmol/L Carbon Dioxide 25 (22-30) mmol/L BUN 21 H (9-20) mg/dL Creatinine 0.87 (0.66-1.25) mg/dL Glucose 164 H (74-99) mg/dL Calcium 9.4 (8.4-10.2) mg/dL AST 23 (17-59) U/L ALT 17 (4-49) U/L Alkaline Phosphatase 70 (38-126) U/L Total Protein 7.3 (6.3-8.2) g/dL Albumin 4.2 (3.5-5.0) g/dL Current Medications Generic Name Dose Route Start Last Admin Trade Name Freq PRN Reason Stop Dose Admin Alprazolam 0.25 mg 09/08/24 07:42 Alprazolam 0.25 Mg Tab PO Q6HR PRN Mild Anxiety Alprazolam 0.5 mg 09/08/24 07:42 Alprazolam 0.5 Mg Tab PO Q6HR PRN Moderate Anxiety Amiodarone HCl 100 mg 09/08/24 09:00 Amiodarone 100 Mg Tab PO DAILY [facility] Amlodipine Besylate 2.5 mg 09/08/24 09:00 Amlodipine 2.5 Mg Tab PO DAILY [facility] Aspirin 325 mg 09/08/24 09:00 Aspirin 325 Mg Tab PO DAILY [facility] Atorvastatin Calcium 40 mg 09/08/24 21:00 Atorvastatin 40 Mg Tab PO HS [facility] Clopidogrel Bisulfate 75 mg 09/08/24 09:00 Clopidogrel 75 Mg Tab PO DAILY [facility] Dextrose/Water 25 ml 09/08/24 02:39 Dextrose 50% Syringe 50 Ml IVP PER PROTOCOL PRN Hypoglycemia Protocol Dextrose/Water 50 ml 09/08/24 02:39 Dextrose 50% Syringe 50 Ml IVP PER PROTOCOL PRN Hypoglycemia Protocol Ezetimibe 10 mg 09/08/24 09:00 Ezetimibe 10 Mg Tab PO DAILY [facility] Heparin Sodium (Porcine) 10, 1,001 mls @ 999 mls/hr 09/09/24 07:00 000 unit/ Sodium Chloride IRRIGATION 09/09/24 23:00 ONCE PRN INTRA-OP Heparin Sodium (Porcine) 2,500 250.5 mls @ 250 mls/hr 09/09/24 07:00 unit/ Sodium Chloride IRRIGATION 09/09/24 23:00 ONCE PRN INTRA-OP Sodium Chloride 1,000 mls @ 75 mls/hr 09/08/24 07:45 Saline 0.9% IV .[id number] [facility] Insulin Human Lispro 0 unit 09/08/24 07:30 Insulin Lispro (Humalog) 100 Unit/Ml 10 Ml Vl SQ ACHS [facility] Protocol Isosorbide Mononitrate 120 mg 09/08/24 09:00 Isosorbide Mononitrate Er 60 Mg Tab.Er.24h PO DAILY [facility] Losartan Potassium 50 mg 09/08/24 09:00 Losartan 50 Mg Tab PO DAILY [facility] Metoprolol Succinate 25 mg 09/08/24 09:00 Metoprolol Succinate (Er) 25 Mg Tab.Er.24h PO DAILY [facility] Morphine Sulfate 4 mg 09/07/24 19:46 09/08/24 02:43 Morphine Sulfate 4 Mg/Ml Syringe IV 4 mg Q4HR PRN Administration Chest Pain Nitroglycerin 0.4 mg 09/08/24 07:42 Nitroglycerin Sl Tabs 0.4 Mg Tab SUBLINGUAL Q5M PRN Chest Pain Rivaroxaban 20 mg 09/08/24 02:37 09/08/24 03:14 Rivaroxaban 20 Mg Tab PO 20 mg W/SUPPER [facility] Administration Protocol Intake and Output 09/07/24 09/08/24 09/08/24 22:59 06:59 14:59 Other: Weight 76.204 kg 09/07/24 17:57 09/07/24 17:57
[2024-09-08] MEDS: CLOPIDOGREL 75 MG TAB PO SCH (12:44)
[2024-09-08] MEDS: ISOSORBIDE MONONITRATE ER 60 MG TAB.ER.24H PO SCH (12:50)
[2024-09-08] MEDS: amLODIPine 2.5 MG TAB PO SCH (12:50)
[2024-09-08] MEDS: EZETIMIBE 10 MG TAB PO SCH (12:50)
[2024-09-08] MEDS: LOSARTAN 50 MG TAB PO SCH (12:50)
[2024-09-08] MEDS: METOPROLOL SUCCINATE (ER) 25 MG TAB.ER.24H PO SCH (12:50)
[2024-09-08] MEDS: SODIUM CHLORIDE 0.9% 1,000 ML in EMPTY BAG 1 BAG IV SCH (12:51)
[2024-09-08 12:57] LABS: Glucose,Whole Blood 183 mg/dL (70-110)
[2024-09-08] MEDS: ASPIRIN 325 MG TAB PO SCH (14:58)
--- NOTE | 2024-09-08 16:04 | P.PN ---
Subjective Progress Note Date: 09/08/24 Hospital Course: Patient is a very pleasant 74-year-old male with a past medical history of CAD status post CABG x 4 (1993) followed by stenting x 3 with last stent placed approximately 10 years ago, recent heart cath on 08/29/2024 status post stenting of the LAD hypertension, ischemic cardiomyopathy EF 45 to 50%, hyperlipidemia, paroxysmal atrial fibrillation on anticoagulation with Xarelto, and type II [id number] diabetes mellitus, and GERD who presented to the ER with gradually worsening 3 days of chest pain similar to what he had at the time of recent stent placement. In the ER his EKG showed sinus rhythm with no LBBB, unchanged interstitial changes throughout the lungs on chest x-ray.Troponin 0.162, 0.296, 0.533. WBC 6.8, hemoglobin 12.9, sodium 136, potassium 4.4, BUN 21 creatinine 0.87. Patient was started on heparin drip, admitted for further evaluation of NSTEMI with cardiology consultation. Patient was taken to [facility] on 09/08 with successful stenting of the first diagonal branch, continued on aspirin and clopidogrel. Seen and examined on 09/08 after heart cath, no active complaints. His blood pressure is 104/57, satting well on room air, heart rate in 60s. Pertinent positives and negatives as discussed above, a complete review of systems was performed and all other systems are negative. Vitals Signs Reviewed. General: [nontoxic], [no distress], [appears at stated age] Derm: [warm], [dry] Head: [atraumatic], [normocephalic], [symmetric] Eyes: [EOMI], [no lid lag], [anicteric sclera] Mouth: [no lip lesion], [mucus membranes moist] Cardiovascular: [S1S2 reg], [no murmur] Lungs: [CTA bilateral], [no rhonchi, no rales] , [no accessory muscle use] Abdominal: [soft], [ nontender to palpation], [no guarding], [no appreciable organomegaly] Ext: [no gross muscle atrophy], [no edema], [no contractures] Neuro: [ CN II-XI grossly intact], [no focal neuro deficits] Psych: [Alert], [oriented], [appropriate affect] Data Reviewed Today: Pertinent Labs: No new blood work available Assessment and Plan: NSTEMI status post diagonal branch stent 09/08 Ischemic cardiomyopathy EF 45 to 50% History of CAD status post CABG x 4 followed by stenting x 3 Known LBBB Hypertension Hyperlipidemia Paroxysmal atrial fibrillation on Xarelto - Cardiology consulted, appreciate recommendations -TTE ordered and pending - Continue aspirin 81 mg daily, Lipitor 40 mg nightly, clopidogrel 75 mg daily, ezetimibe 10 mg daily - Continue Imdur 120 daily, losartan 50 daily, metoprolol succinate 25 daily, amlodipine 2.5 mg p.o. daily - Continue Xarelto 20 daily - Continue nitro sublingual as needed, - Continue amiodarone 100 mg p.o. daily -Ordered CBC and BMP for a.m. 2 DM not on insulin: Continue with SSI, Accu-Cheks, hypoglycemia precautions DVT ppx Xarelto Code status: Full Anticipated discharge place: Home Anticipated discharge time: 24 to 48 hours Objective - Vital Signs Vital signs: Vital Signs Temp 97.6 F 09/08/24 07:00 Pulse 63 09/08/24 15:18 Resp 15 09/08/24 15:18 BP 104/57 09/08/24 15:18 Pulse Ox 97 09/08/24 15:18 FiO2 Intake & Output 09/07/24 09/08/24 09/08/24 18:59 06:59 18:59 Intake Total 840 Balance 840 Weight 76.204 kg Intake: IV 600 Oral 240 Other: # Voids 2 - Labs CBC & Chem 7: 09/07/24 17:57 09/07/24 17:57 Labs: Abnormal Lab Results - Last 24 Hours (Table) 09/07/24 09/07/24 09/07/24 Range/Units 17:57 17:57 17:57 RBC 3.72 L (4.40-5.60) 10*6/uL Hgb 12.9 L (13.0-17.0) g/dL Hct 37.1 L (39.6-50.0) % MCV 99.7 H (80.0-97.0) fL MCH 34.7 H (27.0-32.0) pg MPV 9.2 L (9.5-12.2) fL Eosinophils # 0.37 H (0.04-0.35) 10*3/uL Sodium 136 L (137-145) mmol/L BUN 21 H (9-20) mg/dL Glucose 164 H (74-99) mg/dL POC Glucose (mg/dL) (70-110) mg/dL Troponin I 0.162 H* (0.000-0.034) ng/mL HDL Cholesterol (40.00-60.00) mg/dL 09/07/24 09/08/24 09/08/24 Range/Units 20:55 00:20 00:24 RBC (4.40-5.60) 10*6/uL Hgb (13.0-17.0) g/dL Hct (39.6-50.0) % MCV (80.0-97.0) fL MCH (27.0-32.0) pg MPV (9.5-12.2) fL Eosinophils # (0.04-0.35) 10*3/uL Sodium (137-145) mmol/L BUN (9-20) mg/dL Glucose (74-99) mg/dL POC Glucose (mg/dL) (70-110) mg/dL Troponin I 0.296 H* 0.533 H* (0.000-0.034) ng/mL HDL Cholesterol 32.50 L (40.00-60.00) mg/dL 09/08/24 09/08/24 09/08/24 Range/Units 07:40 09:44 12:54 RBC (4.40-5.60) 10*6/uL Hgb (13.0-17.0) g/dL Hct (39.6-50.0) % MCV (80.0-97.0) fL MCH (27.0-32.0) pg MPV (9.5-12.2) fL Eosinophils # (0.04-0.35) 10*3/uL Sodium (137-145) mmol/L BUN (9-20) mg/dL Glucose (74-99) mg/dL POC Glucose (mg/dL) 111 H 118 H 183 H (70-110) mg/dL Troponin I (0.000-0.034) ng/mL HDL Cholesterol (40.00-60.00) mg/dL
[2024-09-08 16:15] LABS: Glucose,Whole Blood 189 mg/dL (70-110)
[2024-09-08] MEDS: AMIODARONE 100 MG TAB PO SCH (17:16)
[2024-09-08 19:57] LABS: Glucose,Whole Blood 155 mg/dL (70-110)
[2024-09-08] MEDS: ATORVASTATIN 40 MG TAB PO SCH (20:07)
[2024-09-08] MEDS: ALPRAZolam 0.5 MG TAB PO PRN (23:00)
[2024-09-09 06:12] LABS: Glucose,Whole Blood 130 mg/dL (70-110)
[2024-09-09] MEDS: ASPIRIN 81 MG PO SCH (07:37)
[2024-09-09 07:41] VITALS: TEMP 97.4
[2024-09-09 08:16] LABS: Basophils # (A) 0.08 10*3/uL (0.00-0.10); Eosinophils # (A) 0.76 10*3/uL (0.04-0.35); Eosinophils % (A) 9.1 %; HCT 38.2 % (39.6-50.0); HGB 13.1 g/dL (13.0-17.0); Lymphocytes % (A) 19.1 %; MCH 34.5 pg (27.0-32.0); MCHC 34.3 g/dL (32.0-37.0); MCV 100.5 fL (80.0-97.0); Mean Platelet Volume 9.2 fL (9.5-12.2); Monocytes # (A) 1.25 10*3/uL (0.20-1.00); Monocytes % (A) 14.9 %; Neutrophils # (A) 4.65 10*3/uL (1.80-7.70); Neutrophils % (A) 55.5 %; Platelet Count 245 10*3/uL (140-440); RDW 13.7 % (11.5-14.5); WBC 8.37 10*3/uL (4.50-10.00)
[2024-09-09 08:34] LABS: African American GFR (CKD) >90 (>60 ml/min/1.73 sqM); Anion Gap 10 mmol/L; Blood Urea Nitrogen 17 mg/dL (9-20); Calcium 8.9 mg/dL (8.4-10.2); Carbon Dioxide 22 mmol/L (22-30); Chloride 107 mmol/L (98-107); Glucose 128 mg/dL (74-99); Non-African American GFR(CKD) 89 (>60 ml/min/1.73 sqM); Potassium 4.3 mmol/L (3.5-5.1); Sodium 139 mmol/L (137-145)
[2024-09-09 11:02] VITALS: BP 105/61; PULSE 56; RESP 18
--- NOTE | 2024-09-09 11:03 | P.PN ---
Subjective Progress Note Date: 09/09/24 Reason for Consult (text): NSTEMI History of present illness: This is a 74-year-old male patient of Dr. Frey with past medical history of recent NSTEMI with stenting of the ostial LAD with IVUS imaging and BUCK III flow, coronary artery disease with previous CABG, ischemic cardiomyopathy, paroxysmal atrial fibrillation, hypertension, hyperlipidemia, diabetes mellitus type 2. We have been asked to evaluate patient for NSTEMI. Patient came into [facility] with chest pain that started in the precordial area and left arm was involved. Pain had been going on for 3 days and gradually worsening in intensity. This pain did feel similar to that when he had his recent stent done. Patient has been started on heparin drip. Blood pressure 129/86, heart rate 51, pulse ox 98% on room air. Patient is seen today in the emergency center waiting for bed on the cardiac stepdown unit. Recommendations regarding cardiac catheterization have been discussed with the patient he is agreeable to move forward with this today. -EKG: Sinus rhythm with left bundle branch block unchanged from previous. -Chest x-ray: Unchanged interstitial changes throughout the lungs. -Laboratory studies: Troponin 0.162, 0.296, 0.533. WBC 6.8, hemoglobin 12.9, sodium 136, potassium 4.4, BUN 21 creatinine 0.87. Triglycerides 113, cholesterol 132, LDL 76. -Home cardiac medications: Amiodarone 100 mg daily, amlodipine 2.5 mg daily, aspirin 81 mg daily, atorvastatin 40 mg at bedtime, Plavix 75 mg daily, Zetia 10 mg daily, Imdur 120 mg daily, losartan 50 mg daily, metoprolol succinate 25 mg daily, Nitrostat as needed, Xarelto 20 mg with supper, also on Ozempic. -Cardiac catheterization performed 08/29/2024 revealed severe stenosis of the osseous of the RCA with significant progression since 2013, severe triple-vessel disease, patent WAGNER to the LAD with diffuse disease in the LAD, patent SVG to the RCA with known occluded SVG to the OM1 and distal left circumflex OM. Patient underwent successful stenting of the ostium of the LAD with reduction of stenosis from 90% to 5%. Plan was to continue aspirin Plavix and Xarelto for 1 week and then stop aspirin. -Echocardiogram performed on 08/29/2024: EF 45 to 50%, inferior and inferior lateral wall hypokinesis. Mild concentric LVH. Mildly reduced global LV systolic function. Normal RV size and systolic function. Mild left atrial dilatation. Mild MR and mild TR. 09/09/2024 Patient seen and examined on the cardiac stepdown unit. Yesterday, he underwent cardiac catheterization with Dr. Frey and stenting of the first diagonal branch. Patient is to be continued on aspirin and Plavix for 1 year. Blood pressure 143/69, heart rate 62, pulse ox 97% on room air. Repeat blood work reveals creatinine 0.77. Physical examination: Gen: This is 74-year-old male in no acute distress. VS: reviewed HEENT: Head is atraumatic, normocephalic. Pupils equal, round. Sclerae is anicteric. NECK: Supple. No JVD. LUNGS: Clear to auscultation. No wheezes or rhonchi. No intercostal retractions. HEART: Regular rate and rhythm. 2/6 systolic ejection murmur. ABDOMEN: Soft No tenderness. EXTREMITIES: No pedal edema. No calf tenderness. NEUROLOGICAL: Patient is awake, alert and oriented x3. Assessment: NSTEMI Recent hospitalization for NSTEMI status post stenting of the ostium of the LAD Ischemic cardiomyopathy with EF improved to 45 to 50% Known left bundle branch block Paroxysmal atrial fibrillation on Xarelto Hypertension Hyperlipidemia Peripheral vascular disease Remote history of tobacco use and dependence Plan: Continue patient's home cardiac medications Patient is cleared for discharge from a cardiology perspective Patient will follow-up with Dr. Frey in 1 week. Nurse practitioner note has been reviewed, I agree with documented findings and plan of care. Patient was seen and examined. Objective - Vital Signs Vital signs: Vital Signs Temp 97.4 F L 09/09/24 07:30 Pulse 62 09/09/24 07:30 Resp 20 09/09/24 07:30 BP 143/69 09/09/24 07:30 Pulse Ox 97 09/09/24 07:30 FiO2 Intake & Output 09/08/24 09/09/24 09/09/24 18:59 06:59 18:59 Intake Total 840 Balance 840 Weight 76.204 kg 76.2 kg Intake: IV 600 Oral 240 Other: Voiding Method Toilet # Voids 2 2 - Labs CBC & Chem 7: 09/09/24 07:31 09/09/24 07:31 Labs: Abnormal Lab Results - Last 24 Hours (Table) 09/08/24 09/08/24 09/08/24 Range/Units 00:20 09:44 12:54 POC Glucose (mg/dL) 118 H 183 H (70-110) mg/dL HDL Cholesterol 32.50 L (40.00-60.00) mg/dL 09/08/24 09/08/24 09/09/24 Range/Units 16:13 19:55 06:10 POC Glucose (mg/dL) 189 H 155 H 130 H (70-110) mg/dL HDL Cholesterol (40.00-60.00) mg/dL
--- NOTE | 2024-09-09 11:25 | P.DS ---
Providers Date of admission: 09/07/24 19:48 Attending physician: Asif Rothman MD Consults: 09/07/24 19:46 Consult Physician Urgent Consulting Provider: Sae Frey Consult Reason/Comments: nStemi Do you want consulting provider notified?: Yes 09/08/24 09:34 Consult Physician Routine Consulting Provider: [facility] Consult Reason/Comments: Post Interventional Patient Do you want consulting provider notified?: Already Contacted Primary care physician: Jason Worrell Hospital Course: Discharge Diagnosis: NSTEMI status post diagonal branch stent 09/08 Ischemic cardiomyopathy EF 45 to 50% History of CAD status post CABG x 4 followed by stenting x 3 Known LBBB Hypertension Hyperlipidemia Paaroxysmal atrial fibrillation on Xarelto Hospital Course: Patient is a very pleasant 74-year-old male with a past medical history of CAD status post CABG x 4 (1993) followed by stenting x 3 with last stent placed approximately 10 years ago, recent heart cath on 08/29/2024 status post stenting of the LAD hypertension, ischemic cardiomyopathy EF 45 to 50%, hyperlipidemia, paroxysmal atrial fibrillation on anticoagulation with Xarelto, and type II [id number]-btswepehe diabetes mellitus, and GERD who presented to the ER with gradually worsening 3 days of chest pain similar to what he had at the time of recent stent placement. In the ER his EKG showed sinus rhythm with no LBBB, unchanged interstitial changes throughout the lungs on chest x-ray.Troponin 0.162, 0.296, 0.533. WBC 6.8, hemoglobin 12.9, sodium 136, potassium 4.4, BUN 21 creatinine 0.87. Patient was started on heparin drip, admitted for further evaluation of NSTEMI with cardiology consultation. Patient was taken to [facility] on 09/08 with successful stenting of the first diagonal branch, continued on aspirin and clopidogrel. TTE from 08/29/2024 showed EF of 45 to 50% with inferior and inferolateral wall hypokinesis, mild concentric LVH, mildly reduced global LV systolic function, mild MR and TR. Patient was seen and examined at bedside on 09/09, he feels well, no active complaints, was cleared for discharge by cardiology on home cardiac medications. Patient to follow-up with PCP, follow-up with cardiology in 1 week. Vital signs reviewed and stable. General: [nontoxic], [no distress], [appears at stated age] Derm: [warm], [dry] Head: [atraumatic], [normocephalic], [symmetric] Eyes: [EOMI], [no lid lag], [anicteric sclera] Mouth: [no lip lesion], [mucus membranes moist] Cardiovascular: [S1S2 reg], [no murmur] Lungs: [CTA bilateral], [no rhonchi, no rales] , [no accessory muscle use] Abdominal: [soft], [ nontender to palpation], [no guarding], [no appreciable organomegaly] Ext: [no gross muscle atrophy], [no edema], [no contractures] Neuro: [ CN II-XI grossly intact], [no focal neuro deficits] Psych: [Alert], [oriented], [appropriate affect] A total of 40 minutes of time were spent preparing this complex discharge summary. Patient was discharged on 09/09/2024. Patient Condition at Discharge: Serious Plan - Discharge Summary New Discharge Prescriptions: Continue Aspirin EC [Ecotrin Low Dose] 81 mg PO HS Rivaroxaban [Xarelto] 20 mg PO W/SUPPER Nitroglycerin 0.4 mg SL Q5M PRN PRN Reason: Chest Pain Losartan [Cozaar] 50 mg PO DAILY Empagliflozin/Metformin HCl [Synjardy 12.5-1,000 mg Tablet] 2 tab PO DAILY HYDROcodone/APAP 7.5-325MG [[place] 7.5-325] 1 tab PO TID PRN 30 Days #90 tab PRN Reason: Pain Metoprolol Succinate [Metoprolol Succinate ER] 25 mg PO DAILY Omeprazole 20 mg PO DAILY Amiodarone [Cordarone] 100 mg PO DAILY Clopidogrel [Plavix] 75 mg PO DAILY #90 tablet Isosorbide Mononitrate ER [Imdur] 120 mg PO DAILY 90 Days #180 tab Cinnamon Bark [Cinnamon] 1,000 mg PO BID Semaglutide [Ozempic] 0.5 mg SQ WE Ezetimibe [Zetia] 10 mg PO DAILY methocarbamoL [Robaxin] 750 mg PO TID PRN PRN Reason: muscle spasms Atorvastatin [Lipitor] 40 mg PO HS 90 Days #90 tab amLODIPine [Norvasc] 2.5 mg PO DAILY 90 Days #90 tab Discharge Medication List Aspirin EC [Ecotrin Low Dose] 81 mg PO HS 12/07/13 [History] Nitroglycerin 0.4 mg SL Q5M PRN 01/27/14 [History] Rivaroxaban [Xarelto] 20 mg PO W/SUPPER 01/27/14 [History] Losartan [Cozaar] 50 mg PO DAILY 09/13/22 [History] Empagliflozin/Metformin HCl [Synjardy 12.5-1,000 mg Tablet] 2 tab PO DAILY 08/14/23 [History] HYDROcodone/APAP 7.5-325MG [[place] 7.5-325] 1 tab PO TID PRN 30 Days #90 tab 07/02/24 [Rx] Amiodarone [Cordarone] 100 mg PO DAILY 08/28/24 [History] Ezetimibe [Zetia] 10 mg PO DAILY 08/28/24 [History] Metoprolol Succinate [Metoprolol Succinate ER] 25 mg PO DAILY 08/28/24 [History] Omeprazole 20 mg PO DAILY 08/28/24 [History] Semaglutide [Ozempic] 0.5 mg SQ WE 08/28/24 [History] methocarbamoL [Robaxin] 750 mg PO TID PRN 08/28/24 [History] Clopidogrel [Plavix] 75 mg PO DAILY #90 tablet 08/29/24 [Rx] Atorvastatin [Lipitor] 40 mg PO HS 90 Days #90 tab 08/30/24 [Rx] Isosorbide Mononitrate ER [Imdur] 120 mg PO DAILY 90 Days #180 tab 08/30/24 [Rx] amLODIPine [Norvasc] 2.5 mg PO DAILY 90 Days #90 tab 08/30/24 [Rx] Cinnamon Bark [Cinnamon] 1,000 mg PO BID 09/07/24 [History] Follow up Appointment(s)/Referral(s): Sae Frey MD [STAFF PHYSICIAN] - 09/22/24 2:15 pm Jason Worrell MD [Primary Care Provider] - 09/11/24 10:00 am Patient Instructions/Handouts: DASH Eating Plan (DC), Heart Catheterization (DC) Activity/Diet/Wound Care/Special Instructions: Please, follow-up with your primary care physician and cardiology. Continue your home home medications. Monitor your blood pressure, keep log of the readings to discuss with your primary care physician. Follow DASH diet
[2024-09-09 11:58] VITALS: BMI 23.4
== END 2024-09-09 11:52 | disposition home or self-care (01) | DRG 322 ==
LOC: EC 16:53 → 3SCARD 19:48
PROVIDERS: ADMIT Internal Medicine; ATTEND Internal Medicine
PROC: B2131ZZ Fluoroscopy of Multiple Coronary Artery Bypass Grafts using Low Osmolar Contrast (ICD-10-PCS; 2024-09-08)
PROC: B240ZZ3 Ultrasonography of Single Coronary Artery, Intravascular (ICD-10-PCS; 2024-09-08)
PROC: 4A033BC Measurement of Arterial Pressure, Coronary, Percutaneous Approach (ICD-10-PCS; 2024-09-08)
PROC: 027034Z Dilation of Coronary Artery, One Artery with Drug-eluting Intraluminal Device, Percutaneous Approach (ICD-10-PCS; principal; 2024-09-08 09:00)
PROC: 4A023N7 Measurement of Cardiac Sampling and Pressure, Left Heart, Percutaneous Approach (ICD-10-PCS; 2024-09-08 09:00)
PROC: B2111ZZ Fluoroscopy of Multiple Coronary Arteries using Low Osmolar Contrast (ICD-10-PCS; 2024-09-08 09:00)
DX: I21.4 Non-ST elevation (NSTEMI) myocardial infarction (principal); E11.9 Type 2 diabetes mellitus without complications; I11.9 Hypertensive heart disease without heart failure; I25.810 Atherosclerosis of coronary artery bypass graft(s) without angina pectoris; I48.0 Paroxysmal atrial fibrillation; E78.5 Hyperlipidemia, unspecified; I25.10 Atherosclerotic heart disease of native coronary artery without angina pectoris; I25.82 Chronic total occlusion of coronary artery; I25.5 Ischemic cardiomyopathy; I44.7 Left bundle-branch block, unspecified; H91.90 Unspecified hearing loss, unspecified ear; Z95.1 Presence of aortocoronary bypass graft; Z79.01 Long term (current) use of anticoagulants; Z95.5 Presence of coronary angioplasty implant and graft; Z79.899 Other long term (current) drug therapy; Z79.84 Long term (current) use of oral hypoglycemic drugs; Z79.85 Long-term (current) use of injectable non-insulin antidiabetic drugs; Z79.02 Long term (current) use of antithrombotics/antiplatelets; I25.2 Old myocardial infarction; Z87.891 Personal history of nicotine dependence; Z97.4 Presence of external hearing-aid; Z86.19 Personal history of other infectious and parasitic diseases
CPT/HCPCS: 36415; 71046; 80048; 80053; 80061; 83036; 83690; 83735; 83880; 84484; 85025; 85610; 85730; 93005; 96374; 96376; 99291

== ENCOUNTER → 2024-09-10 | Outpatient (CLI) | payer MEDICARE ==
[2024-09-10 09:10] VITALS: BP 104/55; PULSE 64; RESP 16; TEMP 97.2
--- NOTE | 2024-09-10 15:37 | P.PAINPG ---
Objective - Vital Signs Vital signs: Intake & Output 09/09/24 09/10/24 09/10/24 18:59 06:59 18:59 Weight 76.067 kg PQRS Measure Charge Sheet Comment: A 74 yr old male presents today w severe and chronic LBP x 3 yrs secondary to spinal stenosis, radiculopathy, spondylosis and facet arthropathy without myelopathy for medication refills and evaluation s/p BL RFA L4-L5/ L5-S1. Pt states he experienced >75% pain relief s/p procedure. Pt states pain level is provoked at 8 /10 in intensity, intermittent, localized in the lower lumbar spine where it meets the tailbone, predominantly axial, achy in character w occasional shooting pain towards the BLEs. Pain is provoked by lifting. Pain is alleviated by medications, heat, hot showers, PT 4 weeks in Jun 2022, chiropractic treatments 10 weeks in Mar 2022, physician guided home stretching regimen every morning since Jun 2022, repositioning and rest. . Interventional procedures include Cardiac Stents (July 2024), JUDSON L5-S1 x2, BL RFA L3-L5 x3 (09/16, 06/17), BL TPIs L2-L1 x1 (May 2023) Medications include [place] 7.5/325mg #90, Tyl, Robaxin 500mg #60 REVIEW OF ORGAN SYSTEMS: CONSTITUTIONAL: No fevers or chills. No recent weight loss. NEUROLOGICAL: + numbness and tingling along the distal extremities. No seizure disorders or headaches. MUSCULOSKELETAL: + pain PSYCHIATRIC: Denies current depression or suicidal thoughts. Physical Examinations : Constitutional : Cooperative , not in acute distress . Neurologic : Cranial nerve II to XII intact. No focal neurological deficits. Psychiatric : alert & oriented x 3. Matching mood & appropriate affect. Judgment & insight intact. Musculoskeletal : Cervical Spine Motor strength in the deltoid and biceps: Normal right side. Normal Left side Motor strength biceps and the wrist extensors: Normal right side . Normal left side Motor strength in the triceps muscle: Normal right side. Normal left side Deep tendon reflexes: Normal at the biceps. Normal at Brachioradialis. Normal at triceps Vertebral body tenderness to deep palpation over Cervical facet loading test: positive bilaterally Spurling test: positive bilaterally Neck distraction test: positive bilaterally Taiwo sign: positive bilaterally Lumbar spine Motor strength lower extremities ,thigh and legs 5/5 Right side , 5/5 Left side Deep tendon reflexes : Normal Knee Jerk. Normal Ankle Jerk Vertebral body tenderness over L5 + Villalpando Test positive R L5-S1 Taut bands w twitch response Lumbar facet Loading Test: positive Right / positive Left L4-L5, L5-S1 Range of motion of the lumbar spine Flexion 30 degrees, extension 10 degrees Straight Leg Raise test: Left/ Right positive at degree Evie test: positive right / positive left. Severe tenderness over the Sacroiliac joint on the Right / Left sides Gaenslen test: positive bilaterally Seated flexion test: positive bilaterally. Sacral spine : Severe tenderness over the Sacroiliac joint: right side / left side Range of motion: Flexion of the lumbar spine <60 degrees Range of motion: Extension of the lumbar spine <20 degrees Gaenslen's Test positive Kahlil's Test positive Evie test: positive right side / left side Thigh Thrust Test Sacral Thrust Test Assessment/ Plan : Lumbar stenosis, lumbar spondylosis Recommendation of medication management. Narcotic/ Opiate agreement signed 01/03/24. UDS from 07/02/24 reviewed and consistent. [place] 7.5/325mg #90 , Robaxin 750mg #90 w 1 RF. Use, side effects, adverse reactions and safe storage discussed. All questions answered. PQRS Narrative: Smoking Status Former smoker Narcotic Agreement Date Signed 01/03/24 Hx Alcohol Use (MH) Yes: RARE Home Medications: Ambulatory Orders Aspirin EC [Ecotrin Low Dose] 81 mg PO HS 12/07/13 Nitroglycerin 0.4 mg SL Q5M PRN 01/27/14 Rivaroxaban [Xarelto] 20 mg PO W/SUPPER 01/27/14 Losartan [Cozaar] 50 mg PO DAILY 09/13/22 Empagliflozin/Metformin HCl [Synjardy 12.5-1,000 mg Tablet] 2 tab PO DAILY 08/14/23 HYDROcodone/APAP 7.5-325MG [[place] 7.5-325] 1 tab PO TID PRN 30 Days #90 tab 07/02/24 Amiodarone [Cordarone] 100 mg PO DAILY 08/28/24 Ezetimibe [Zetia] 10 mg PO DAILY 08/28/24 Metoprolol Succinate [Metoprolol Succinate ER] 25 mg PO DAILY 08/28/24 Omeprazole 20 mg PO DAILY 08/28/24 Semaglutide [Ozempic] 0.5 mg SQ WE 08/28/24 methocarbamoL [Robaxin] 750 mg PO TID PRN 08/28/24 Clopidogrel [Plavix] 75 mg PO DAILY #90 tablet 08/29/24 Atorvastatin [Lipitor] 40 mg PO HS 90 Days #90 tab 08/30/24 Isosorbide Mononitrate ER [Imdur] 120 mg PO DAILY 90 Days #180 tab 08/30/24 amLODIPine [Norvasc] 2.5 mg PO DAILY 90 Days #90 tab 08/30/24 Cinnamon Bark [Cinnamon] 1,000 mg PO BID 09/07/24 Controlled Substance Measures - Controlled Substance Measures Is patient prescribed a controlled substance at discharge?: Yes When asked, does pt state using other controlled substances?: Yes If prescribed controlled substance>3 days was MAPS reviewed?: Yes
== END ==
LOC: PNWHC3 08:39
PROVIDERS: ATTEND Specialist
DX: M47.26 Other spondylosis with radiculopathy, lumbar region (principal); M48.061 Spinal stenosis, lumbar region without neurogenic claudication; Z87.891 Personal history of nicotine dependence; Z88.8 Allergy status to other drugs, medicaments and biological substances
CPT/HCPCS: 99211